=== PATIENT | female | born 1940 | race Caucasian/White ===

== ENCOUNTER 2024-09-07 11:51 | Inpatient (IN) | payer MEDICARE, SELFPAY ==
[2024-09-07] VITALS (23 sets, daily range): BP systolic 115–169; BP diastolic 62–111; BMI 27.5
[2024-09-07 09:38] LABS: Hematocrit 37.4 % (37.0-47.0); Hemoglobin 11.6 g/dL (12.0-16.0); Mean Corpuscular Hgb 30.1 pg (27.0-31.0); Mean Corpuscular Volume 97.1 fL (81.0-99.0); Mean Platelet Volume 10.1 fL (7.4-10.4); Platelet Count 357 10^3/uL (130-400); Red Blood Cell Count 3.85 10^6/uL (4.20-5.40); Red Cell Dist. Width 19.1 % (11.5-14.5); White Blood Cell Count 7.9 10^3/uL (4.8-10.8)
[2024-09-07 09:51] LABS: INR 1.03
[2024-09-07 09:52] LABS: APTT 38.2 Sec (23.4-35.0)
[2024-09-07 09:53] LABS: Blood Urea Nitrogen 31 mg/dl (7-17); Calcium 9.6 mg/dl (8.4-10.2); Carbon Dioxide 21 mmol/L (22-30); Chloride 114 mmol/L (98-107); Glucose 111 mg/dl (70-99); Potassium 4.5 mmol/L (3.5-5.1); Sodium 144 mmol/L (135-145); eGFR 41.06
--- NOTE | 2024-09-07 10:03 | W.SUR.PREOP ---
Pre-Operative Surgical Note
-
I have examined this patient prior to the performance of the scheduled procedure.
The patient's condition is unchanged from the time of the current History and
Physical and the patient is able to undergo the scheduled procedure.
--- NOTE | 2024-09-07 11:56 | OR.RPT ---
Operative Report
Operative Report
PROCEDURE DATE: 09/07/2024
Preoperative diagnosis: Chronic limb threatening ischemia left lower extremity with gangrene left fifth toe and first toe, severe ischemic rest pain, dependent rubor.
Postoperative diagnosis: Same
Procedure:
1. Duplex assisted right common femoral artery cannulation.
2. Aortogram and pelvic angiogram.
3. Left lower extremity arteriogram with several vessel catheterization of left superficial femoral artery via right common femoral artery puncture.
4. Right femoral angiogram.
5. Supervision and interpretation.
Surgeon: Twin
Industrial Sales Engineer: None
Complications: None
Anesthesia: Local, sedation
Fluoroscopy:
6.7 min
47 mGy
10.05 gy.cm2
Indications for procedure:
Chronic limb threatening ischemia with left fifth toe complete dry gangrene, first toe with partial dry gangrene, ischemic rest pain and dependent rubor. Risk/benefits/alternatives of angiography were fully discussed. Patient understood all wished
to proceed.
Description of procedure:
Patient was identified, brought to the operating room. Placed on the table in the supine position. After the adequate administration of anesthesia, the patient was prepped and draped in the standard surgical fashion. A standard preoperative
timeout was undertaken and everybody was in agreement with the plan.
The right common femoral artery was accessed with a micropuncture kit under direct duplex ultrasound guidance. Note this proved to be slightly challenging as it appeared that the profunda origin was slightly high, and in addition there was another
large branch that emanated from the proximal SFA just inferior to this point. Careful ultrasound and fluoroscopy assisted guidance was undertaken for access. Angiogram through the micropuncture sheath was performed as well before advancing a
larger sheath confirming good access over the femoral head. A 5 Sudanese sheath was then advanced over a 0.035 inch wire, and a osborn's hook catheter was advanced into the abdominal aorta. Aortogram and pelvic angiogram was obtained. Findings as
follows:
Infrarenal aorta: Patent with severe eccentric calcified plaque, significant tortuosity, but no significant stenosis. Bilateral common and external iliac arteries were somewhat tortuous and had significant eccentric plaque, but no significant
stenosis noted.
Using a floppy angled hydrophilic wire, the left common femoral artery was cannulated and the catheter was advanced. Left lower extremity arteriogram was obtained. Findings as follows:
Common femoral artery: Patent with no significant stenosis.
Profunda femoris artery: Patent with no significant stenosis
Superficial femoral artery: Patent with luminal irregularities but no significant stenosis.
Popliteal artery: Patent with severe string-like stenosis focally in the proximal above-knee popliteal artery just at the transition from the distal superficial femoral artery. The remainder of the popliteal artery behind the knee was slightly
challenging to visualize due to the orthopedic prosthesis, but was able to flex the knee and rotate the gantry so as to image. There was luminal irregularities and some disease through the behind the popliteal artery but no severe stenosis, perhaps
a mild to moderate stenosis of the.
Anterior tibial artery: Patent at the origin and for about a centimeter or 2 and then completely occluded with no reconstitution noted even at the level of the foot on delayed imaging.
Tibial peroneal trunk: Patent for just the origin and then completely occluded.
Peroneal artery: Completely occluded with reconstitution just proximal to the terminal bifurcation at the level of the lateral malleolus. And at that level moderately diseased based on relatively small flow lumen.
Posterior tibial artery: Chronically occluded. No reconstitution noted. However the plantar branches appear to reconstitute on the foot. Somewhat diseased and small in nature (the plantar arteries).
At this point I felt that there is no reasonable revascularization option. If needed the proximal popliteal artery stenosis could be stented, to enhance inflow to originate a bypass from a more distal origin. However given uncertainty as to
whether a bypass would even be feasible, I elected not to perform that at this time. I felt there is nothing else endovascularly to render at this point. Wires and catheters were withdrawn. Right femoral angiogram demonstrated good puncture in
the right common femoral artery over the femoral head, but again as noted slightly high bifurcation and puncture. The sheath was withdrawn and manual pressure was applied to the puncture site carefully. Prolonged pressure was applied. Hemostasis
was achieved. No evidence of hemodynamic instability during pressure application to suggest any retroperitoneal bleed or otherwise. Patient was transferred to the recovery room in stable condition.
[2024-09-07] MEDS: SUBLIMAZE 25 MCG IV (11:59)
--- NOTE | 2024-09-07 11:59 | W.SUR.POST ---
Surgical Immediate Post Op
Note
Pre Op Diagnosis: Peripheral arterial disease, wound
Post Op Diagnosis: Peripheral chill disease, wound
Procedure Performed: Left lower extremity angiogram, diagnostic
Primary Surgeon: Casey Murcia M.D.
Secondary Surgeons: N/A
Anesthesia: MAC
Estimated Blood Loss: 2 mL
Fluids: See anesthesia flowsheet
Drains/Shunts: N/A
Specimens/Cultures: N/A
Doppler/Duplex/Angio (Y/N): Y
Complications: None
Operative Findings: Peripheral arterial disease is not amenable to endovascular intervention
[2024-09-07] MEDS: NSS 1000 IV (13:10)
[2024-09-07] MEDS: LIDOCAINE 4% PATCH 1 PATCH TOPICAL (13:36)
[2024-09-07] MEDS: NORCO 5/325 1 TABLET PO ×2 (13:37→20:09)
--- NOTE | 2024-09-07 14:00 | PTCARENOTE ---
Received pt from cath lab radiology technician post arteriogram. NSR with 1st degree AV block on the monitor, HR in the 80's. Denies chest pain or SOB, but c/o chronic back pain rating it as an 8/10. Lidocaine patch applied and PRN hydrocodone administered per
order--see MAR for further details.
--- NOTE | 2024-09-07 14:00 | PTCARENOTE ---
Received pt from collaborative physician post arteriogram. NSR with 1st degree AV block on the monitor, HR in the 80's. Denies chest pain or SOB, but c/o chronic back pain rating it as an 8/10. Lidocaine patch applied and PRN hydrocodone administered per
order--see MAR for further details. Right groin site C.D.I. No hematoma or bleeding noted at this time. pt informed on activity restrictions and bed rest as well as expected ambulation time. pt verbalizes understanding. Call ford within reach.
--- NOTE | 2024-09-07 15:07 | CM ---
CM following for DC planning needs.
Met w/ patient + mult. family members at bedside to complete initial assessment.
Pt. resides alone in a private, 1 level apartment. Apartment is accessible by either a ramp or 2 HARRY. Functionally, patient is indep. w/ ADLs, mobility with use of a RW.
Pt. has RX plan and uses [facility] for prescription needs.
Anticipated DC plan is for home without needs.
CM to follow.
--- NOTE | 2024-09-07 15:08 | W.PN.UPDATE ---
Update Note
Progress Note Update
I had a very extensive discussion with the patient and her son and daughter. Discussed findings on angiography. Discussed severe occlusive disease below the knee. Discussed really barely any discernible distal targets for any sort of intervention
(angioplasty or bypass). The only potential options would be a very distal diseased peroneal artery but it is at the level of the ankle and it looks quite disease. Alternatively the plantar/distal PT artery branches may be reasonable. Discussed
with them that could try to explore the plantar/distal PT and see if we can use that as a target. If so then can proceed with bypass assuming she has reasonable vein. If no reasonable vein, or alternatively on exploration the distal PT/plantar is
not a reasonable target, then the only option would be amputation. Discussed BKA versus AKA. Discussed generally would recommend BKA as I think hopefully she should have enough perfusion to heal that. However discussed differences in terms of
healing potential as well as ability to ambulate with prosthetic. Discussed another alternative of primary amputation and to avoid any sort of heroic bypass type endeavor. Discussed that unfortunately TADV/LimFlow is not a reasonable option based
on anatomy. Nor do I think necessarily that would help. They understand all. Continue workup with vein mapping and likely will plan discharge tomorrow and schedule electively for the following week surgery. The only thing patient will have to
decide is if elects to proceed and bypass/exploration of distal PT as an option, then if on exploration the artery is not reasonable should we proceed with an amputation right there and then. I did broach that subject with her as well as her family
and they will think about it.
[2024-09-07] MEDS: TYLENOL 650 MG PO (17:07)
--- NOTE | 2024-09-07 17:19 | PTCARENOTE ---
pt c/o headache rated 8/10 but is requesting Tylenol 650 mg po. med with Tylenol, awaiting relief.
[2024-09-07] MEDS: HEPARIN 5000 UNITS SC (20:09)
[2024-09-07] MEDS: ZYRTEC 10 MG PO (21:47)
[2024-09-07] MEDS: ELAVIL 10 MG PO (21:47)
[2024-09-08] MEDS: TYLENOL 650 MG PO (01:32)
--- NOTE | 2024-09-08 01:45 | PTCARENOTE ---
Assumed care at 1900, pt aao x3, SR/ST on the monitor with HR 90-100's at rest and 120-130's with ambulation, asymptomatic. C/o pain 9/10 from LLE, medicated with some relief. 5th L foot necrotic toe, intact. 1st toe L foot black scab/necrotic area.
Left foot with some edema and local erythema, tender to touch, Doppler pulses b/l. Call ford within reach.
[2024-09-08] MEDS: NORCO 5/325 1 TABLET PO (02:41)
[2024-09-08 02:44] VITALS: BP 125/100
[2024-09-08 03:41] LABS: Hematocrit 33.8 % (37.0-47.0); Hemoglobin 10.7 g/dL (12.0-16.0); Mean Corp Hgb Conc. 31.7 g/dL (33.0-37.0); Mean Corpuscular Hgb 30.3 pg (27.0-31.0); Mean Corpuscular Volume 95.8 fL (81.0-99.0); Mean Platelet Volume 10.8 fL (7.4-10.4); Platelet Count 315 10^3/uL (130-400); Red Blood Cell Count 3.53 10^6/uL (4.20-5.40); White Blood Cell Count 5.7 10^3/uL (4.8-10.8)
[2024-09-08 04:04] LABS: Blood Urea Nitrogen 32 mg/dl (7-17); Calcium 9.2 mg/dl (8.4-10.2); Carbon Dioxide 18 mmol/L (22-30); Chloride 115 mmol/L (98-107); Estimated Creatinine Clearance 31 ml/min; Glucose 139 mg/dl (70-99); Potassium 5.4 mmol/L (3.5-5.1); Sodium 140 mmol/L (135-145); eGFR 41.06
[2024-09-08 04:28] VITALS: BMI 27.2
[2024-09-08] MEDS: SYNTHROID 125 MCG PO (06:10)
[2024-09-08 06:14] LABS: Glucose - Point of Care 140 mg/dl (70-99)
[2024-09-08] MEDS: DEXTROSE 50% SYRINGE 25 GRAMS IV (06:14)
[2024-09-08] MEDS: NOVOLIN R 0.05 UNITS IV (06:19)
--- NOTE | 2024-09-08 06:40 | PTCARENOTE ---
K 5.4 with this morning labs, environmental coordinator DIRECTOR INSURANCE made aware. New orders to give 5 units of Novolin R insulin IV stat. Blood sugar 140 prior administration, dextrose given, then Insulin IV at 0619. Will continue to check blood sugar as per protocol and
potassium within 2 hr of insulin administration.
[2024-09-08 06:59] VITALS: BP 163/103
[2024-09-08 07:01] VITALS: BP 161/79
[2024-09-08 07:19] LABS: Glucose - Point of Care 180 mg/dl (70-99)
[2024-09-08] MEDS: NORVASC 5 MG PO (08:17)
[2024-09-08] MEDS: HEPARIN 5000 UNITS SC (08:17)
[2024-09-08] MEDS: VITAMIN B-12 1000 MCG PO (08:17)
--- NOTE | 2024-09-08 08:23 | W.PN.VS ---
Addendum entered and electronically signed by Casey Murcia MD 09/08/24 11:10:
Seen and examined with CHARLES Cohen. Agree with findings as noted below. Patient without any new complaints. Continued ischemic rest pain left foot. Right groin puncture site flat. No hematoma. Abdomen is soft, nondistended, nontender. Left foot
stable with dependent rubor and gangrene 1st and 5th toes. Plan/as discussed and noted below. An extensive discussion with her. Discussed plan for surgery next week for exploration of left distal PT/plantar artery. Discussed that if reasonable,
her vein is marginal/reasonable and hopefully could pursue bypass with stenting of the SFA to shorten the length of a bypass needed. Alternatively would require BKA. Discussed both of those scenarios. She understands all. Plan surgery next week.
Discharge home today.
Original Note:
Today's Communication / Plan
-
Seen and assessed with Dr. Murcia
Assessment/Plan
-
Postop day 1 diagnostic arteriogram
Plan:
- Discharge home, planning for surgery Tuesday 10/[address] Murcia
Subjective Data
-
Date of Service: September 08, 2024
Patient seen at bedside this a.m. with Dr. Murcia. Patient offers no complaints at this time. No events overnight. Patient looking forward to discharge as soon as possible
Objective Data
-
Vital Signs
Temp Pulse Resp BP Pulse Ox
98.2 F 101 18 161/79 94
09/08/24 06:59 09/08/24 07:45 09/08/24 06:59 09/08/24 07:01 09/08/24 06:59
Intake and Output
09/07/24 09/08/24 09/09/24
06:59 06:59 06:59
Intake Total 1540 / 1540
Balance 1540 / 1540
Intake:
Oral fluids 960 / 960
IV fluids (Total) 580 / 580
NSS 580 / 580
Other:
Number of approximated MODERATE 2
amounts of urine
Number of approximated LARGE 1
amounts of urine
Lab Results
09/08/24 02:57
Calcium 9.2 mg/dl (8.4-10.2) 09/08/24 02:57
Physical Exam
-
AAO x 3
No tachypnea on room air
No tachycardia
Abdomen soft
Groin site clean, dry, intact, soft, flat
[2024-09-08 08:33] LABS: Glucose - Point of Care 140 mg/dl (70-99)
[2024-09-08 09:01] LABS: Potassium 5.2 mmol/L (3.5-5.1)
--- NOTE | 2024-09-08 09:03 | W.DS.TRANS ---
DC Summary - Forest Worker
-
Discharge Instructions:
Discharge Diagnosis/Procedures Diagnostic arteriogram
Diet As tolerated
Activity No strenuous activity
Driving Restrictions As prior to admission
Bathing Restrictions OK to Shower
Instructions:
Stand-Alone Forms: Vascular Surg Discharge Instr
Changes to Home Medications: No
Discharge Medications:
DC Medications w/original date entered in [facility]
Prevagen 1 tab PO DAILY 08/31/24
amitriptyline 10 mg tablet 10 mg PO HS 08/31/24
amlodipine 5 mg tablet 5 mg PO DAILY 08/31/24
cyanocobalamin (vitamin B-12) 1,000 mcg tablet (Vitamin B-12) 1,000 mcg PO DAILY 08/31/24
hydrocodone 5 mg-acetaminophen 325 mg tablet 1 tab PO Q6H PRN pain 08/31/24
levocetirizine 5 mg tablet (Xyzal) 5 mg PO HS 08/31/24
levothyroxine 125 mcg tablet 125 mcg PO DAILY 08/31/24
lidocaine 1.8 % topical patch 1 patch topical DAILY PRN Pain 08/31/24
lidocaine 5 % topical patch 1 patch topical DAILY PRN Pain 08/31/24
Home Medication Changes
Pending Results: No
--- NOTE | 2024-09-08 09:40 | CM ---
CM following for DC planning needs.
Met w/ patient at bedside. Plan is for DC to home today. There are no needs identified.
Plan-home, no needs.
[2024-09-08 10:01] LABS: Glucose - Point of Care 148 mg/dl (70-99)
[2024-09-08 10:59] VITALS: BP 155/93
--- NOTE | 2024-09-08 11:10 | PTCARENOTE ---
IV and tele removed. Discharge instructions reviewed w/ pt and verbalizes understanding. Belongings collected and sent home w/ pt. D/c to home w/ daughter.
== END 2024-09-08 11:11 | disposition home or self-care (01) | DRG 301 ==
LOC: IVU 11:51
PROVIDERS: Nurse Practitioner; Nurse Practitioner Family; ADMITTING PHYSICIAN Surgery Vascular Surgery; PRIMARYCARE PHYSICIAN Family Medicine
PROC: B41D1ZZ Fluoroscopy of Aorta and Bilateral Lower Extremity Arteries using Low Osmolar Contrast (ICD-10-PCS; 2024-09-07)
PROC: 04JY3ZZ Inspection of Lower Artery, Percutaneous Approach (ICD-10-PCS; 2024-09-07)
PROC: B41C1ZZ Fluoroscopy of Pelvic Arteries using Low Osmolar Contrast (ICD-10-PCS; 2024-09-07)
DX: I70.262 Atherosclerosis of native arteries of extremities with gangrene, left leg (principal); L97.529 Non-pressure chronic ulcer of other part of left foot with unspecified severity; I10 Essential (primary) hypertension; E03.9 Hypothyroidism, unspecified; M06.9 Rheumatoid arthritis, unspecified; Z60.2 Problems related to living alone; Z88.8 Allergy status to other drugs, medicaments and biological substances; Z88.1 Allergy status to other antibiotic agents; Z88.2 Allergy status to sulfonamides; Z79.890 Hormone replacement therapy; Z83.3 Family history of diabetes mellitus; Z87.891 Personal history of nicotine dependence
CPT/HCPCS: 36247; 75625; 75716; 80048; 82962; 84132; 85027; 85610; 85730; 86850; 86900; 86901; 87070; 93005; 93970; C1769; C1894; Q9967

== ENCOUNTER 2024-09-13 11:21 | Inpatient (IN) | payer MEDICARE, SELFPAY ==
[2024-09-13] VITALS (10 sets, daily range): BP systolic 107–146; BP diastolic 65–81; BMI 27.2
[2024-09-13 12:26] LABS: Blood Urea Nitrogen 42 mg/dl (7-17); Carbon Dioxide 17 mmol/L (22-30); Chloride 112 mmol/L (98-107); Estimated Creatinine Clearance 29 ml/min; Glucose 105 mg/dl (70-99); Potassium 4.5 mmol/L (3.5-5.1); Sodium 140 mmol/L (135-145); eGFR 37.56
[2024-09-13] MEDS: BACTROBAN NASAL 1 GRAM NASAL (12:26)
[2024-09-13] MEDS: NSS 500 IV (13:11)
--- NOTE | 2024-09-13 13:13 | W.PN.UPDATE ---
Update Note
Progress Note Update
Discussed again with her the plan. Discussed will explore distal left posterior tibial/plantar artery. If feasible we will plan bypass. If however not she understands and is willing to proceed with left below the knee amputation.
--- NOTE | 2024-09-13 18:07 | W.SUR.POST ---
Surgical Immediate Post Op
Note
Pre Op Diagnosis: PAD
Post Op Diagnosis: PAD
Procedure Performed: LLE below knee popiteal artery to PT artery bypass with saphenous vein, on table angiogram with SFA/popliteal artery balloon angioplasty and stent placement
Primary Surgeon: Twin
Check Cashier: Noel ROWLAND
Anesthesia: General
Estimated Blood Loss: 50 cc
Fluids: See anesthesia flowsheet
Drains/Shunts: None
Specimens/Cultures: None
Doppler/Duplex/Angio (Y/N): Y
Complications: None
Operative Findings: Palpable graft pulse, Doppler signal marked on the foot
--- NOTE | 2024-09-13 18:41 | OR.RPT ---
Operative Report
Operative Report
PROCEDURE DATE: 09/13/2024
Preoperative diagnosis: Chronic limb threatening ischemia left lower extremity with gangrene left 5th and 1st toe. Severe ischemic rest pain.
Postoperative diagnosis: Same
Procedure:
1. Left below the knee popliteal artery to plantar artery bypass with ipsilateral nonreversed greater saphenous vein.
2. Right common femoral artery duplex assisted cannulation.
3. Aortogram pelvic angiogram and left lower extremity arteriogram.
4. Balloon angioplasty and stent placement left distal SFA to above-knee popliteal artery with Zilver PTX 6 mm x 12 cm stent.
Surgeon: Twin
Insurance Account Manager: CHARLES Cohen, required for all aspects of procedure including assistance with traction/countertraction, following a suture line, assistance with closure.
Complications: None
Anesthesia: General
Indications for procedure:
Chronic limb threatening ischemia. Limited revascularization options. Appeared to have a plantar artery on the foot that I discussed may be worth exploring, though clearly there were no guarantees that this would be sufficient for
revascularization. Did discuss the other alternative of primary below the knee amputation. Discussed the risk of below the knee amputation despite all efforts as well. She understood all wished to proceed.
Description of procedure:
Patient was identified brought to the operating room placed on the table in supine position. After the adequate administration of anesthesia she was prepped and draped in the standard surgical fashion. A standard preoperative timeout was
undertaken and everybody was in agreement the plan. I made a longitudinal/oblique incision in the distal medial ankle into the foot just posterior to the medial malleolus distal extent, and onto the pad of the foot. This was carried through skin
subcutaneous tissue with the electrocautery. The retinaculum was divided sharply with the Metzenbaum scissor. The distal posterior tibial artery was identified after identifying the vein. Careful dissection was taken to isolate the artery and
continue to dissected until the branching to the plantar branches. Slightly difficult to say which was which, but likely the lateral branch coursed off the lateral wall of the artery, and the medial branch presumably stayed somewhat medial there.
These were carefully circumferentially dissected and isolated with Vesseloops. The arteries themselves were somewhat soft but noncalcified plaque could be palpated. A Doppler signal was audible. Therefore I felt it was worth an attempt at bypass.
At this point I made a longitudinal incision in the medial proximal calf about a fingerbreadth inferior to the tibia. The greater saphenous vein was exposed here. It became very small here. Therefore based on the fact that it became very small
here, and I would not have enough length, I felt that inflow from the below-knee popliteal artery would be the only viable option. However that would imply the need for stenting of the above-knee popliteal and distal SFA. I discussed this
potential with the patient. Now I wish to proceed in that fashion. Therefore I now dissected through the crural fascia layer with the electrocautery. I reflected the gastrocnemius muscle posteriorly and in the soft loose areolar tissue identified
the posterior tibial vein and artery. The artery was carefully dissected away from surrounding structures and great care to avoid any injury to the structures and Vesseloops passed around approximately distally. It was soft with weak pulsatility.
Now that I had proximal and distal arterial exposure, I continued to make incisions in the medial aspect of the thigh. To skip incisions and through the proximal medial calf incision I exposed the greater saphenous vein through those 3 incisions.
The vein was fully mobilized, ligating any branches between silk ties and clips. And then dividing them. Once I mobilized a suitable segment I ligated the vein distally with a heavy silk tie and a clip where it became very small. I then
transected that there. Proximally I ligated with a silk suture ligature and a clip. I then transected it there. I then distended the vein under heparinized saline. It distended very well. I now used a Carmella tunneler to create a subcutaneous
tunnel between the 2 arterial exposure sites. I now gave the patient an appropriate dose of heparin 6000 units. Once this had circulated I tightened my double looped vessel loop distally on the popliteal artery and clamped the artery proximally.
An arteriotomy was made with an 11 blade and extended using Hanley scissor. There was atherosclerotic plaque in the wall, but the lumen was reasonably patent. I now spatulated the vein maintaining it in a nonreversed fashion and sewed an
end-to-side anastomosis to the popliteal artery using a running 6-0 Prolene suture. I completed and tied down my suture line. I then released my clamps on the popliteal artery. A single bleeding site on the suture line was repaired with a
[id number] 6-0 Prolene suture. There was good flow into the vein graft. I now used a Marcano valvulotome to fully valvulotomize the bypass graft. Once I was satisfied the anterior surface was then marked under distention to avoid any kinking
or twisting and then it was passed through the tunnel. I now placed a bulldog clamp on the vein graft. I now placed Yasargil clips on the distal posterior tibial artery and the plantar branches. An arteriotomy was made with a Charles Mix blade. It
was a diseased artery, it was certainly not normal and it was very small. I debated whether it was worth trying to sew to this, but this was the only option and there had been flow in it. When I released my as ago clips distally there was
backbleeding. Therefore I felt it was worth proceeding. I therefore then trimmed and spatulated the distal aspect of the vein graft and sewed an end-to-side anastomosis to the distal posterior tibial artery holding onto one of the plantar branches
using a running 7-0 Prolene suture. Prior to completing and tying down my suture line I backbled the apache artery and flushed out the vein graft. I then instilled heparinized saline and completed and tied down the suture line. Next I released
the as ago clips on the artery and released the bulldog clamp on the vein graft. There was now reasonable pulsatile flow in the vein graft. There is a reasonable Doppler signal in the plantar branches distally. The pulse was slightly weaker
though given the inflow disease. But I was satisfied with the outcome here so far.
Therefore I then now turned my attention to the right groin. I then punctured the right common femoral artery under direct duplex ultrasound guidance with a micropuncture kit and then advanced a 5 Russian sheath over 0.035 inch wire. Care was taken
to puncture carefully as the patient had a high bifurcation as noted on prior imaging as well. Lovelace's hook catheter was advanced into the aorta and aortogram/pelvic angiogram confirmed aortic and iliac anatomy as noted on recent prior
angiography. I then used a flopping of hydrophilic wire and with some difficulty was finally able to cannulate the common femoral and then profunda femoris artery. I then exchanged for a 5 Russian glide catheter which was advanced to the common
femoral artery. Angiogram identified the superficial femoral artery which I then was able to cannulate with a flopping of hydrophilic wire and then advanced my glide catheter. Further lower extremity angiogram demonstrated patent below the knee
popliteal artery and widely patent proximal anastomosis of the bypass graft. I then exchanged for a Storq wire and up and over 6 Russian sheath. Now under roadmap assisted guidance I traversed the severe stenosis in the distal SFA/popliteal artery
as well as additional milder stenosis just beyond using a flopping of hydrophilic wire and a CXI catheter. Once I gained wire access into the bypass graft, I then exchanged for a Storq wire. Next I pre-angioplastied the stenotic area using a 4 mm
x 14 mm angioplasty balloon. Next, I advanced a Mzinga Zilver PTX 6 mm x 12 cm stent in the distal SFA into the above-knee popliteal artery. This was deployed and then post angioplastied with a 5 mm angioplasty balloon. Completion angiogram
demonstrated an excellent result with brisk flow and no residual stenosis. Good flow into the runoff. Namely into the bypass graft which filled briskly now. The proximal anastomosis is noted was widely patent. The entire bypass graft was patent.
Distal anastomosis with patent, and the 1 good plantar branch filled reasonably well and gave markedly increased small tiny collateralization into the foot and toes. Still a very diseased artery and diseased outflow. However nothing further I
could offer here. To palpation now the pulsation in the graft was much stronger. In addition the Doppler signal in the plantar branches was much stronger. At this point I was satisfied. I felt that there is nothing else here I could render. We
therefore then achieved and confirmed full hemostasis throughout all her incision sites. Protamine was given to reverse the heparin. Saphenectomy sites were closed using 2-0 Vicryl followed by 3-0 Vicryl and then skin clips. Proximal arterial
exposure site was closed with 2-0 Vicryl interrupted suture followed by 3-0 Vicryl and skin clips. The distal foot arterial exposure site was closed with interrupted vertical mattress nylon suture. Dressings were applied. The patient tolerated
procedure well. All sponge, needle, instrument counts were correct at the end of the case. The patient was transported to the recovery room in stable condition.
[2024-09-13 18:43] LABS: Hematocrit 33.3 % (37.0-47.0); Hemoglobin 10.6 g/dL (12.0-16.0); Mean Corp Hgb Conc. 31.8 g/dL (33.0-37.0); Mean Corpuscular Hgb 31.2 pg (27.0-31.0); Mean Corpuscular Volume 97.9 fL (81.0-99.0); Platelet Count 258 10^3/uL (130-400); Red Cell Dist. Width 18.8 % (11.5-14.5); White Blood Cell Count 13.7 10^3/uL (4.8-10.8)
[2024-09-13] MEDS: DILAUDID 0.25 MG IV (18:51)
[2024-09-13 18:57] LABS: APTT 34.6 Sec (23.4-35.0); INR 1.16; PT 15.4 Sec (11.4-14.6)
[2024-09-13 19:03] LABS: Blood Urea Nitrogen 38 mg/dl (7-17); Calcium 8.4 mg/dl (8.4-10.2); Carbon Dioxide 19 mmol/L (22-30); Chloride 116 mmol/L (98-107); Estimated Creatinine Clearance 31 ml/min; Glucose 155 mg/dl (70-99); Potassium 4.8 mmol/L (3.5-5.1); Sodium 141 mmol/L (135-145); eGFR 41.06
[2024-09-13] MEDS: HEPARIN 25000 UNITS/250 ML IV (19:09)
[2024-09-13] MEDS: PLAVIX 300 MG PO (19:11)
[2024-09-13] MEDS: NSS 1000 IV (19:29)
--- NOTE | 2024-09-13 20:00 | PTCARENOTE ---
Patient received from PACU, drowsy, offers no complaints.Lying flat. NSR with first degree, blood pressure as documented. trace edema to bilateral lower extremities. Lungs diminished, pulse ox 100% on 6L simple mask. Abdomen soft with hypoactive
bowel sounds. Temp sensing irving draining yellow urine. Right groin dite clean dry and intact. Left medial leg with small amount of old drainage on primaseal dressings. Left medial foot with 4x4 ans tegaderm clean dry and intact. Right DP and
left foot pulses present by doppler. #18 g in right upper arm with IVF, #20g in left hnad with Heparin gtt infusing as ordered. Right radial Evans transduced and zeroed. CHG bath given.
--- NOTE | 2024-09-13 21:43 | PTCARENOTE ---
HOB raised, transitioned from 6L simple mask to 2L nasal cannula.
[2024-09-13] MEDS: ELAVIL 10 MG PO (22:00)
[2024-09-13] MEDS: MYRBETRIQ EXTENDED RELEASE 50 MG PO (22:01)
[2024-09-13] MEDS: ZYRTEC 5 MG PO (22:01)
[2024-09-13] MEDS: DILAUDID 0.5 MG IV (22:01)
[2024-09-14] VITALS (24 sets, daily range): BP systolic 124–158; BP diastolic 60–115; BMI 27.6
--- NOTE | 2024-09-14 | PTCARENOTE ---
Patient reassessed, intermittently complaining of burning pain in left foot, medicated per JUN. Pulses unchanged, resting with eyes closed
[2024-09-14] MEDS: ROXICODONE 5 MG PO ×4 (01:35→20:34)
--- NOTE | 2024-09-14 04:04 | PTCARENOTE ---
Patient reassessed, no changes in assessment watching tv, labs sent
[2024-09-14 04:20] LABS: Hematocrit 31.5 % (37.0-47.0); Mean Corp Hgb Conc. 31.7 g/dL (33.0-37.0); Mean Corpuscular Volume 97.5 fL (81.0-99.0); Mean Platelet Volume 10.5 fL (7.4-10.4); Platelet Count 255 10^3/uL (130-400); Red Blood Cell Count 3.23 10^6/uL (4.20-5.40); Red Cell Dist. Width 18.7 % (11.5-14.5); White Blood Cell Count 8.9 10^3/uL (4.8-10.8)
[2024-09-14 04:38] LABS: APTT 39.7 Sec (23.4-35.0); INR 1.02; PT 13.9 Sec (11.4-14.6)
[2024-09-14 04:40] LABS: Blood Urea Nitrogen 36 mg/dl (7-17); Calcium 8.2 mg/dl (8.4-10.2); Carbon Dioxide 16 mmol/L (22-30); Chloride 117 mmol/L (98-107); Estimated Creatinine Clearance 34 ml/min; Glucose 166 mg/dl (70-99); Potassium 5.5 mmol/L (3.5-5.1); Sodium 140 mmol/L (135-145); eGFR 45.19
[2024-09-14] MEDS: NSS 1000 IV (06:01)
[2024-09-14] MEDS: SYNTHROID 125 MCG PO (06:01)
[2024-09-14] MEDS: SODIUM BICARBONATE 50 MEQ IV (06:32)
[2024-09-14] MEDS: NORVASC 5 MG PO (06:40)
--- NOTE | 2024-09-14 06:43 | PTCARENOTE ---
Labs noted, order received, AM norvasc given for increased blood pressure. patient ordering breakfast
--- NOTE | 2024-09-14 07:00 | CON.INTV ---
Addendum entered and electronically signed by Kevin Shearer MD 09/15/24 11:30:
09/15
- Patient transferring out of ICU
- Financial Compliance Manager service will sign off, please call as needed
Original Note:
Consultation
Consultation Request
Date/Time Consultation Requested: 09/13/2024
Date/Time Consultation Performed: 09/14/2024
Requesting Provider: Casey Murcia
Performing Provider: Kevin Shearer
Reason for Consultation: Ischemic foot
Medical History
-
Chief Complaint: Foot pain
History of Present Illness:
Patient is a very pleasant 84-year-old female with known history of ischemic foot ulcer on the left lower extremity related to ischemia. She had angiography performed about a month ago and was not felt to be a suitable candidate for endovascular
interventions. She was brought back to the OR on 09/13 with another attempt to consider endovascular revascularization/bypass surgery and if not feasible plan for left below the knee amputation. Patient subsequently had left below the knee
popliteal artery to plantar artery bypass along with balloon angioplasty and stent placement of left distal SFA to above-knee popliteal artery. Postprocedure patient was brought to the ICU started on heparin infusion as well as oral Plavix.
Financial Compliance Manager consultation was requested for further input.
Past medical history. Hypertension, peripheral vascular disease, ischemic foot ulcer, hypothyroidism, rheumatoid arthritis.
Surgical history. None
Family history. No family history of lung cancer reported. Strong history of diabetes in parents.
Social history. Prior history of smoking. Quit about 10 years ago. Patient reports that she probably smoked for 20 to 40 years about a pack per day and then switched to cigars about 15 years ago and then quit everything about 10 years ago.
Allergies / Home Medications
Allergies
Allergy/AdvReac Type Severity Reaction Status Date / Time
baclofen Allergy Unknown Verified 09/13/24 11:49
Benzodiazepines Allergy Unknown Verified 09/13/24 16:24
diazepam (From Valium) Allergy Unknown Verified 09/13/24 11:49
duloxetine Allergy Unknown Verified 09/13/24 11:49
gabapentin Allergy Unknown Verified 09/13/24 11:49
meloxicam Allergy Anaphylaxis Verified 09/13/24 16:24
methotrexate Allergy Unknown Verified 09/13/24 16:24
pregabalin (From Lyrica) Allergy Unknown Verified 09/13/24 11:49
sulfamethoxazole (From Allergy Rash Verified 09/13/24 11:49
Bactrim)
trimethoprim (From Bactrim) Allergy Rash Verified 09/13/24 11:49
Home Medications
�Medication �Instructions �Recorded �Confirmed �Last Taken �Type
Prevagen 1 tab PO DAILY 08/31/24 09/13/24 09/12/24 06:00 History
amitriptyline 10 mg tablet 10 mg PO HS 08/31/24 09/13/24 09/12/24 20:00 History
amlodipine 5 mg tablet 5 mg PO DAILY 08/31/24 09/13/24 09/12/24 08:00 History
cyanocobalamin (vitamin B-12) 1,000 mcg PO DAILY 08/31/24 09/13/24 09/12/24 08:00 History
1,000 mcg tablet (Vitamin B-12)
hydrocodone 5 mg-acetaminophen 325 1 tab PO Q6H PRN pain 08/31/24 09/13/24 09/13/24 06:00 History
mg tablet
levocetirizine 5 mg tablet (Xyzal) 5 mg PO HS 08/31/24 09/13/24 09/12/24 20:00 History
levothyroxine 125 mcg tablet 125 mcg PO DAILY 08/31/24 09/13/24 09/12/24 06:00 History
lidocaine 1.8 % topical patch 1 patch topical DAILY PRN Pain 08/31/24 09/13/24 09/06/24 20:00 History
acetaminophen 650 mg 1,300 mg PO Q12H 09/12/24 09/13/24 09/12/24 20:00 History
tablet,extended release
mirabegron 25 mg tablet,extended 50 mg PO HS 06/07/0409/13/24 09/12/24 20:00 History
release 24 hr (Myrbetriq)
temazepam 30 mg capsule 30 mg PO HS PRN insomnia 09/12/24 09/13/24 09/12/24 20:00 History
Review of Systems
-
Hematologic/Lymphatic: Other
Vitals / Labs / Diagnostic Testing
Vital Signs
Temp Pulse Resp BP Pulse Ox
98.2 F 84 10 139/68 98
09/14/24 04:00 09/14/24 06:00 09/14/24 06:00 09/14/24 06:00 09/14/24 05:45
Lab Data
09/14/24 03:53
09/14/24 03:53
Laboratory Results
09/13/24 09/14/24
18:38 03:53
PT 15.4 H 13.9
INR 1.16 1.02
APTT 34.6 39.7 H
Diagnostic Testing:
Physical Exam
-
HEENT: Normocephalic
Cardiovascular: S1/S2 and Peripheral Edema (No edema. Gangrenous left toe changes noted )
Respiratory: Clear
GI: Soft
Neurology: Awake
Skin: Warm
General: Comfortable
Assessment
-
84-year-old patient with history of severe ischemic rest pain with gangrenous left 5th and 1st toe, s/p:
1. Left below the knee popliteal artery to plantar artery bypass with ipsilateral nonreversed greater saphenous vein.
2. Right common femoral artery duplex assisted cannulation.
3. Aortogram pelvic angiogram and left lower extremity arteriogram.
4. Balloon angioplasty and stent placement left distal SFA to above-knee popliteal artery with Zilver PTX 6 mm x 12 cm stent.
POD #1.
Continue observation following procedure
Follow neurovascular checks per protocol
Currently on clopidogrel as well as heparin infusion
Follow BP monitoring and parameters as set by primary team
Monitor on telemetry
Pain control per protocol
RASS goal 0
No prior history of pulmonary disease, known h/o smoking
CXR reviewed indicating no acute disease
No prior PFTs for review
Encouraged IS
Diet advancement per protocol
Aspiration precautions
GI prophylaxis: on Protonix.
Creat at baseline, follow UO. K is high.
Critical I/Os
Void trials
Replete electrolytes as needed
No signs/symptoms suspicious for infectious etiology at this time
Will observe off antibiotics for now
Follow temperatures/CBC
Hb and platelets postoperatively stable
DVT prophylaxis: On heparin drip currently
Encouraged OOB/PT/OT/ambulation once cleared by surgical team
Other medical diagnoses:
- CKD with Hyperkalemia. Cr baseline 1.3. Potassium at 5.5 today. Chloride rising. Discontinue normal saline infusion, start sterile water with 3 A of sodium bicarbonate at 80 mL/h. Follow-up labs. Lokelma times 1
- Chronic metabolic acidosis, suspect related to CKD. Switch to sterile water with bicarb infusion, will eventually start the patient on oral supplement with sodium bicarbonate tablet twice a day.
- HTN. Currently on amlodipine
- Hypothyroidism. Continue thyroxine replacement
- PVD. Currently on Plavix along with heparin infusion
- Rheumatoid arthritis
- H/o Smoking . Patient denies any symptoms of COPD/Emphysema. We discussed about pulmonary function testing and patient does not want to pursue any further workup at present. She does not qualify for low-dose CT scan screening as her age is more
than 80.
Critical Care time 48 mins -- The patient is admitted for acute critical illness for the treatment of vital organ failure and/or prevention of further life-threatening conditions. Total care includes time spent in review of history, physical exam,
medications, hemodynamic/ventilator parameters, laboratory data, imaging and discussion with house staff, pharmacy, respiratory therapy, hide sorter, and nursing.
Data:
CXR 09/2024: Unremarkable
--- NOTE | 2024-09-14 07:27 | W.PN.VS ---
Today's Communication / Plan
-
Seen and assessed with Dr Murcia
Assessment/Plan
-
POD 1 Bypass and SFA/pop stent
Plan:
-DC cailin
-DC IVF
-DC irving
-OOB to chair today, progress to ambulation today
-Theraputic heparin today
-Podiatry consult for necrotic toes
-Keep ICU today
Subjective Data
-
Date of Service: September 14, 2024
Pt seen at bedside this am with Dr Murcia. Pt offers no complaints at this time. No events overnight. Admits to having less discomfort in the toes.
Objective Data
-
Vital Signs
Temp Pulse Resp BP Pulse Ox
98.2 F 84 10 139/68 98
09/14/24 04:00 09/14/24 06:00 09/14/24 06:00 09/14/24 06:00 09/14/24 05:45
Intake and Output
09/13/24 09/14/24 09/15/24
06:59 06:59 06:59
Intake Total 985 / 985
Output Total 1220 / 1220
Balance -235 / -235
Intake:
IV fluids (Total) 985 / 985
Heparin 55 / 55
Nss 1,000 ml @ 80 mls/hr IV . 880 / 880
[id number] RONA Rx#:[id number]
normosol 50 / 50
Output:
Urine, Irving 1220 / 1220
Lab Results
09/14/24 03:53
09/14/24 03:53
Calcium 8.2 mg/dl (8.4-10.2) L 09/14/24 03:53
Physical Exam
-
AAOx3
No tachypnea on 2L NC
No tachycardia
Abd soft
LLE aquacel dressings c/d/i, compartments soft
Palpable graft pulse
foot dressing s/d/i, +doppler signal at marked area
Foot warm and pink
--- NOTE | 2024-09-14 07:30 | PTCARENOTE ---
Received A&Ox4, on 2LNC, NSR w/1st AVB, Right radial [place], Doppler DP and PT pulses, trace edema in B/L LE, Left medial Primaseal dressing intact w/ old drainage, Left inner ankle gauze with Tegaderm intact w/ old drainage, Nuñez intact.
[2024-09-14] MEDS: NSS (PRESERVATIVE FREE) 10 ML IV (08:09)
[2024-09-14] MEDS: PROTONIX IV 40 MG IV (08:09)
[2024-09-14] MEDS: VITAMIN B-12 1000 MCG PO (08:09)
[2024-09-14] MEDS: PLAVIX 75 MG PO (08:09)
[2024-09-14] MEDS: LIDOCAINE 4% PATCH TOPICAL (08:14)
[2024-09-14] MEDS: HEPARIN 25000 UNITS/250 ML IV ×2 (08:48→21:59)
[2024-09-14] MEDS: DILAUDID 0.5 MG IV (10:21)
[2024-09-14] MEDS: LOKELMA 10 GRAM PO (10:53)
[2024-09-14] MEDS: SODIUM BICARBONATE 1150 MEQ IV (11:19)
--- NOTE | 2024-09-14 12:00 | PTCARENOTE ---
Reassessed the patient, discontinued Bishop and irving, leg pain was intervened, tolerated OOB to chair, on RA, new small drainage seen in Left medial leg and left lateral ankle dressings w/ activity.
--- NOTE | 2024-09-14 15:26 | CON.MD ---
Consultation - Medical
-
Consulted for pleasant 84 year old female with chronic PAD and limb threatening ischemia LLE. She is one day status post left BK popliteal artery to plantar artery bypass and balloon angioplasty and stent placement left distal SFA to above knee
popliteal artery.
PMH includes PAD with chronic ischemic LLE wounds, RA and HTN. On examination, expected dorsal foot edema noted but foot warm to touch with good color and capillary return to distal aspect of digits 1-4. Dorsal hallux with 1.5 cm circular wound
necrotic but dry with stable edges, no drainage and no surrounding erythema. 5th toe entirely necrotic to the MTPJ but well demarcated with no drainage or erythema at wound edges. No cellulitis present. Slight pain on gentle manipulation of the
digit but patient states much less severe since surgery.
Impression/Plan
-Chronic limb threatening ischemia left LE one day status post LLE bypass and balloon angioplasty
Patient states much less pain today in the foot and is currently sitting comfortably in chair
-Dry gangrene left 5th toe
Discussed with patient that despite increase in perfusion from surgery the 5th toe is no longer viable and amputation is advised. If performed now without the presence of infection we can primarily close the incision site, providing the best
change of healing. Patient understands and agrees to the procedure to be scheduled tomorrow. If it does not heal, she understands that below knee amputation may be necessary. Patient will inform her daughter of the upcoming procedure and
will have her call me with any questions.
-Necrotic wound left hallux
no surgical intervention warranted as the area is stable and soft tissue distal to the wound appears viable.
Consultation
-
Reason for Consultation: ischemic left 5th toe
--- NOTE | 2024-09-14 16:00 | PTCARENOTE ---
Reassessed the patient, no changes from previous assessments.
Per Dr. Murcia, if left medial leg dressings are saturated, okay to change dressings with Primaseal or 4x4 gauze and wrap with Kerlix. If left inner ankle dressing is saturated, change it with xeroform first, then 4x4 gauze, cover with Tegaderm.
--- NOTE | 2024-09-14 16:08 | CM ---
Initial assessment completed. One day status post LLE bypass and balloon angioplasty.
Patient resides alone in a 1st floor apartment, 2 steps, ramp access. Independent w/ ADLs, ambulates w/ RW previously. No SNF/HC hx reported.
PCP: Wesley Thapa
Pharmacy: [facility]
Plan: Home
[2024-09-14 17:41] LABS: Blood Urea Nitrogen 41 mg/dl (7-17); Calcium 8.3 mg/dl (8.4-10.2); Carbon Dioxide 21 mmol/L (22-30); Chloride 110 mmol/L (98-107); Estimated Creatinine Clearance 34 ml/min; Glucose 131 mg/dl (70-99); Potassium 4.6 mmol/L (3.5-5.1); Sodium 138 mmol/L (135-145); eGFR 45.19
--- NOTE | 2024-09-14 20:00 | PTCARENOTE ---
Patient received in bed, AAOx3. NSR with first degree, blood pressure as documented. trace edema noted to bilateral lower extremities, right DP and left foot present by doppler. Lungs clear, pulse ox 97% on room air. Abdomen soft with positive
bowel sounds. Voiding clear yellow urine. Left leg dressings saturated. Right upper arm midline with heparin gtt infusing as documented.
[2024-09-14] MEDS: ELAVIL 10 MG PO (21:58)
[2024-09-14] MEDS: MYRBETRIQ EXTENDED RELEASE 50 MG PO (21:58)
[2024-09-14] MEDS: SODIUM BICARBONATE 650 MG PO (21:58)
[2024-09-14] MEDS: ZYRTEC 5 MG PO (21:58)
[2024-09-15] VITALS (23 sets, daily range): BP systolic 100–150; BP diastolic 50–79; BMI 27.5
--- NOTE | 2024-09-15 00:33 | PTCARENOTE ---
Patient resting with eyes closed, appears comfortable, pulses unchanged. leg dressing with large amount of blood, pulses present by doppler Labs sent
[2024-09-15 00:58] LABS: APTT 150.5 Sec (23.4-35.0)
--- NOTE | 2024-09-15 01:10 | PTCARENOTE ---
Ptt noted, heparin gtt placed on hold per protocol
--- NOTE | 2024-09-15 03:55 | PTCARENOTE ---
Patient OOB x1 to BSC, offers no compaints. Primaseal leg dressing remains saturated, small opening on dressing reinforced with silk tape. Pulses unchanged. Labs sent
[2024-09-15 04:20] LABS: Hematocrit 30.5 % (37.0-47.0); Hemoglobin 9.9 g/dL (12.0-16.0); Mean Corp Hgb Conc. 32.5 g/dL (33.0-37.0); Mean Corpuscular Hgb 31.2 pg (27.0-31.0); Mean Corpuscular Volume 96.2 fL (81.0-99.0); Mean Platelet Volume 9.9 fL (7.4-10.4); Platelet Count 235 10^3/uL (130-400); Red Blood Cell Count 3.17 10^6/uL (4.20-5.40); White Blood Cell Count 11.2 10^3/uL (4.8-10.8)
[2024-09-15 04:48] LABS: AST (SGOT) 16 U/L (14-36); Albumin 3.5 g/dl (3.5-5.0); Alkaline Phosphatase 62 U/L (38-126); Blood Urea Nitrogen 46 mg/dl (7-17); Calcium 8.3 mg/dl (8.4-10.2); Carbon Dioxide 24 mmol/L (22-30); Chloride 112 mmol/L (98-107); Estimated Creatinine Clearance 34 ml/min; Glucose 110 mg/dl (70-99); Potassium 4.7 mmol/L (3.5-5.1); Sodium 141 mmol/L (135-145); Total Bilirubin 0.4 mg/dl (0.2-1.3); Total Protein 5.7 g/dl (6.3-8.2); eGFR 45.19
[2024-09-15 04:59] LABS: ALT (SGPT) 11 U/L (0-35)
[2024-09-15] MEDS: SYNTHROID 125 MCG PO (06:05)
[2024-09-15] MEDS: PLAVIX PO (08:00)
[2024-09-15] MEDS: LIDOCAINE 4% PATCH TOPICAL (08:00)
--- NOTE | 2024-09-15 08:00 | PTCARENOTE ---
07:30, Received patient A&Ox4, on RA, NSR w/ 1stAVB, SBP within goal range, ANAI midline infusing Heparin @900unit/hr, NPO since midnight, continent w/ bedside commode, adequate UOP.
08:00, vascular team at bedside ordered to stop Heparin drip, order carried out.
[2024-09-15] MEDS: DILAUDID 0.5 MG IV ×2 (08:13→17:08)
[2024-09-15] MEDS: NSS (PRESERVATIVE FREE) 10 ML IV (08:18)
[2024-09-15] MEDS: NORVASC 5 MG PO (08:19)
[2024-09-15] MEDS: PROTONIX IV 40 MG IV (08:19)
[2024-09-15] MEDS: SODIUM BICARBONATE 650 MG PO ×2 (08:20→21:20)
[2024-09-15] MEDS: VITAMIN B-12 1000 MCG PO (08:31)
--- NOTE | 2024-09-15 08:38 | W.PN.VS ---
Addendum entered and electronically signed by Casey Murcia MD 09/15/24 08:53:
Seen and examined with CHARLES Medina. Agree with findings as noted below. Patient without complaints. Left lower extremity dressings were slightly saturated today. Removed all. No active bleeding. Thigh and calf are soft. Incisions all clean dry
and intact once dressing is removed. All blood wiped away. Distal foot incision is clean dry and intact. Easily palpable graft pulse. Excellent dopplerable plantar signal. Plan/as discussed and noted below.
Original Note:
Today's Communication / Plan
-
Patient seen and evaluated bedside with Casey Murcia M.D., below plan reviewed with attending.
Assessment/Plan
-
POD 2 Bypass and SFA/pop stent
Plan:
-Plan for amputation today with podiatry
-Patient with supratherapeutic heparin overnight suspect what led to increased oozing at left lower extremity bypass surgical site we will hold infusion now and dressings changed
-PT/OT
Subjective Data
-
Date of Service: September 15, 2024
Patient seen and examined at bedside, offers no complaints. Reports continued near resolution to rest pain and foot. Reports well-managed postoperative pain.
Objective Data
-
Vital Signs
Temp Pulse Resp BP Pulse Ox
98.2 F 77 16 139/52 98
09/15/24 07:20 09/15/24 08:19 09/15/24 06:00 09/15/24 08:19 09/15/24 06:00
Intake and Output
09/14/24 09/15/24 09/16/24
06:59 06:59 06:59
Intake Total 985 / 1070 1586.5 / 1586.5
Output Total 1220 / 1370 1085 / 1085
Balance -235 / -300 501.5 / 501.5
Intake:
Oral fluids 480 / 480
IV fluids (Total) 985 / 1070 1106.5 / 1106.5
Heparin 55 / 60 226.5 / 226.5
Nss 1,000 ml @ 80 mls/hr IV . 880 / 960 80 / 80
[id number] RONA Rx#:[id number]
Sterile Water For Injection 800 / 800
1000 ml 1,000 ml @ 100 mls/hr
IV .[id number] RONA with Sodium
Bicarbonate 150 Meq Rx#:
[id number]
normosol 50 / 50
Output:
Urine, Nuñez 1220 / 1370 285 / 285
Urine, Voided 800 / 800
Lab Results
09/15/24 03:48
09/15/24 03:48
Calcium 8.3 mg/dl (8.4-10.2) L 09/15/24 03:48
Total Bilirubin 0.4 mg/dl (0.2-1.3) 09/15/24 03:48
AST 16 U/L (14-36) 09/15/24 03:48
ALT 11 U/L (0-35) 09/15/24 03:48
Alkaline Phosphatase 62 U/L (38-126) 09/15/24 03:48
Total Protein 5.7 g/dl (6.3-8.2) L 09/15/24 03:48
Albumin 3.5 g/dl (3.5-5.0) 09/15/24 03:48
Physical Exam
-
AAOx3
No tachypnea on room air
No tachycardia
Abd soft
LLE aquacel dressings saturated, dressing removed no signs of active bleeding, compartments soft
Palpable graft pulse
foot dressing c/d/i, +doppler signal at marked area
Foot warm and pink
--- NOTE | 2024-09-15 12:00 | PTCARENOTE ---
11:30, Changed dressing in Left medial leg with 4x4 gauze, ABD pads, and Kerlix.
12:00, Reassessed the patient, no changes from previous assessments. Patient napping.
[2024-09-15] MEDS: ROXICODONE 5 MG PO ×2 (12:40→20:22)
[2024-09-15] MEDS: LIDOCAINE 4% PATCH 1 PATCH TOPICAL (13:09)
--- NOTE | 2024-09-15 13:13 | PTCARENOTE ---
Patient refused to get up to use bedside commode. This RN offered purewick, patient refused again. Performed bladder scan, showed 144mL. Patient also asked for lidocaine patch, applied to her right lower back. Patient left unit with transporters,
telepack on.
--- NOTE | 2024-09-15 14:49 | W.PN.UPDATE ---
Update Note
Progress Note Update
Patient for left 5th toe and metatarsal amputation today. Tolerated procedure and anesthesia without complication and returned to recovery room with vital signs stable and neurovascular status in tact. Adequate arterial perfusion of soft tissue
proximal to the amputation site noted. Primary closure achieved.
--- NOTE | 2024-09-15 15:30 | PTCARENOTE ---
Nursing report given to [address], patient will be directly transferred from PACU to Room 2010.
[2024-09-15 15:51] LABS: Hematocrit 27.2 % (37.0-47.0); Hemoglobin 8.5 g/dL (12.0-16.0)
--- NOTE | 2024-09-15 16:39 | PTCARENOTE ---
Received patient from PACU via bed around 1600 in stable condition. Neurocheck to LLE + post tibial pulse +sensation + movement. Dressing intact to left foot. Dressing on Left leg with sanguinous drainage. Patient oriented to room. Call ford in
reach.
[2024-09-15] MEDS: TYLENOL 650 MG PO (18:33)
[2024-09-15] MEDS: NON-FORMULARY ITEM 1 UNIT TOPICAL (20:24)
[2024-09-15] MEDS: HEPARIN 25000 UNITS/250 ML IV (21:03)
[2024-09-15] MEDS: MYRBETRIQ EXTENDED RELEASE 50 MG PO (22:48)
[2024-09-15] MEDS: ELAVIL 10 MG PO (22:48)
[2024-09-15] MEDS: ZYRTEC 5 MG PO (22:48)
[2024-09-16] MEDS: TYLENOL 650 MG PO (01:28)
[2024-09-16] MEDS: ROXICODONE 5 MG PO ×3 (01:29→19:43)
[2024-09-16] MEDS: DILAUDID 0.5 MG IV ×4 (03:12→17:03)
[2024-09-16 03:40] VITALS: BP 118/58
[2024-09-16 03:54] LABS: APTT 44.9 Sec (23.4-35.0)
[2024-09-16] MEDS: SYNTHROID 125 MCG PO (05:52)
[2024-09-16 07:25] VITALS: BP 157/69
[2024-09-16] MEDS: PLAVIX 75 MG PO (08:59)
[2024-09-16] MEDS: SODIUM BICARBONATE 650 MG PO ×2 (08:59→19:43)
[2024-09-16] MEDS: VITAMIN B-12 1000 MCG PO (08:59)
[2024-09-16] MEDS: NSS (PRESERVATIVE FREE) 10 ML IV (09:00)
[2024-09-16] MEDS: NORVASC 5 MG PO (09:00)
[2024-09-16] MEDS: PROTONIX IV 40 MG IV (09:00)
[2024-09-16 10:55] LABS: Hematocrit 23.7 % (37.0-47.0); Hemoglobin 7.5 g/dL (12.0-16.0); Mean Corp Hgb Conc. 31.6 g/dL (33.0-37.0); Mean Corpuscular Hgb 31.6 pg (27.0-31.0); Mean Platelet Volume 10.6 fL (7.4-10.4); Platelet Count 192 10^3/uL (130-400); Red Blood Cell Count 2.37 10^6/uL (4.20-5.40); Red Cell Dist. Width 19.1 % (11.5-14.5); White Blood Cell Count 8.8 10^3/uL (4.8-10.8)
[2024-09-16 11:24] LABS: Blood Urea Nitrogen 43 mg/dl (7-17); Calcium 8.4 mg/dl (8.4-10.2); Carbon Dioxide 23 mmol/L (22-30); Chloride 112 mmol/L (98-107); Estimated Creatinine Clearance 29 ml/min; Glucose 106 mg/dl (70-99); Potassium 4.6 mmol/L (3.5-5.1); Sodium 140 mmol/L (135-145); eGFR 37.56
--- NOTE | 2024-09-16 12:12 | W.PN.VS ---
Today's Communication / Plan
-
as above
Assessment/Plan
-
POD 3 Bypass and SFA/pop stent
Plan:
-wound care per podiatry for toe amp
-continue neurovascular checks
Subjective Data
-
Date of Service: September 16, 2024
No acute events. Pain controlled
Objective Data
-
Vital Signs
Temp Pulse Resp BP Pulse Ox
99.1 F 108 18 157/69 91
09/16/24 07:25 09/16/24 07:25 09/16/24 07:25 09/16/24 07:25 09/16/24 07:25
Intake and Output
09/15/24 09/16/24 09/17/24
06:59 06:59 06:59
Intake Total 1586.5 / 1595.5 719 / 719
Output Total 1085 / 1085 800 / 800
Balance 501.5 / 510.5 -81 / -81
Intake:
Oral fluids 480 / 480 510 / 510
IV fluids (Total) 1106.5 / 1115.5 109 / 109
Heparin 226.5 / 235.5 9 / 9
Nss 1,000 ml @ 80 mls/hr IV . 80 / 80
[id number] RONA Rx#:[id number]
Sterile Water For Injection 800 / 800
1000 ml 1,000 ml @ 100 mls/hr
IV .[id number] RONA with Sodium
Bicarbonate 150 Meq Rx#:
[id number]
normosol 100 / 100
IV piggybacks 100 / 100
Output:
Urine, Nuñez 285 / 285
Urine, Voided 800 / 800 800 / 800
Other:
Number of approximated MODERATE 2 1
amounts of urine
Lab Results
09/16/24 10:46
09/16/24 10:46
Calcium 8.4 mg/dl (8.4-10.2) 09/16/24 10:46
Total Bilirubin 0.4 mg/dl (0.2-1.3) 09/15/24 03:48
AST 16 U/L (14-36) 09/15/24 03:48
ALT 11 U/L (0-35) 09/15/24 03:48
Alkaline Phosphatase 62 U/L (38-126) 09/15/24 03:48
Total Protein 5.7 g/dl (6.3-8.2) L 09/15/24 03:48
Albumin 3.5 g/dl (3.5-5.0) 09/15/24 03:48
Physical Exam
-
NAD
incisions c/d/i
+graft pulse
+plantar signal
--- NOTE | 2024-09-16 13:16 | W.PN.POD ---
Today's Communication
Today's Communication
Primary closure of left 5th toe amp site with dorsal incision stable
Activity protocol as per vascular surgery service
Assessment / Plan
-
Post op day #1
-S/p left 5th toe and 5th metatarsal amputation due to dry gangrene. Primary closure achieved
-Excellent appearance with sutures in tact and no soft tissue necrotic changes noted. Wound edge color and turgor appearance indicated good perfusion
-Continue dry dressings only
-Partial weight bearing ok from podiatry standpoint. Refer to vascular surgery service for activity restrictions
-Will continue to monitor left dorsal hallux wound, currently stable.
Subjective
Objective
Temp Pulse Resp BP Pulse Ox
99.1 F 108 18 157/69 91
09/16/24 07:25 09/16/24 07:25 09/16/24 07:25 09/16/24 07:25 09/16/24 07:25
09/16/24 10:46
09/16/24 10:46
Vital Signs and Lab results were reviewed.
Physical Exam
Physical Exam
Dressing clean, dry and in tact. Removed to reveal incision site stable with sutures in tact and no wound edge necrosis
[2024-09-16 15:45] VITALS: BP 148/63
[2024-09-16] MEDS: NON-FORMULARY ITEM 1 UNIT TOPICAL (16:46)
[2024-09-16 18:26] LABS: APTT 156.8 Sec (23.4-35.0)
[2024-09-16 19:31] VITALS: BP 145/91
[2024-09-16] MEDS: MYRBETRIQ EXTENDED RELEASE 50 MG PO (22:51)
[2024-09-16] MEDS: ZYRTEC 5 MG PO (22:51)
[2024-09-16] MEDS: ELAVIL 10 MG PO (22:51)
[2024-09-16] MEDS: SENOKOT 8.6 MG PO (22:51)
[2024-09-16 23:02] VITALS: BP 128/67
[2024-09-17] VITALS (12 sets, daily range): BP systolic 115–153; BP diastolic 54–84; PULSE 113
[2024-09-17] MEDS: HEPARIN 25000 UNITS/250 ML IV (04:43)
[2024-09-17] MEDS: ROXICODONE 5 MG PO ×4 (06:28→21:28)
[2024-09-17] MEDS: SYNTHROID 125 MCG PO (06:28)
[2024-09-17 08:34] LABS: Blood Urea Nitrogen 41 mg/dl (7-17); Calcium 8.6 mg/dl (8.4-10.2); Carbon Dioxide 26 mmol/L (22-30); Chloride 111 mmol/L (98-107); Estimated Creatinine Clearance 29 ml/min; Glucose 106 mg/dl (70-99); Potassium 4.8 mmol/L (3.5-5.1); Sodium 140 mmol/L (135-145); eGFR 37.56
[2024-09-17] MEDS: SENOKOT 8.6 MG PO ×2 (08:53→20:11)
[2024-09-17] MEDS: VITAMIN B-12 1000 MCG PO (08:53)
[2024-09-17] MEDS: PLAVIX 75 MG PO (08:53)
[2024-09-17] MEDS: SODIUM BICARBONATE 650 MG PO ×2 (08:53→20:11)
[2024-09-17] MEDS: NORVASC 5 MG PO (08:53)
[2024-09-17] MEDS: PROTONIX IV 40 MG IV (08:54)
[2024-09-17] MEDS: NSS (PRESERVATIVE FREE) 10 ML IV (08:54)
--- NOTE | 2024-09-17 10:15 | W.PN.POD ---
Today's Communication
Today's Communication
Excellent perfusion to the lateral foot
surgical shoe ordered to facilitate activity
Assessment / Plan
-
Post op day #2
-S/p left 5th toe and 5th metatarsal amputation due to dry gangrene. Primary closure achieved
-Excellent appearance with sutures in tact and no soft tissue necrotic changes noted. Wound edge color and turgor appearance indicated good perfusion
-Continue dry dressings only
-Partial weight bearing ok from podiatry standpoint. Refer to vascular surgery service for activity restrictions. Surgical shoe ordered
-Will continue to monitor left dorsal hallux wound, currently stable.
Subjective
Objective
Temp Pulse Resp BP Pulse Ox
99.5 F 110 18 153/71 92
09/17/24 07:09 09/17/24 07:09 09/17/24 07:09 09/17/24 07:09 09/17/24 07:09
09/16/24 10:46
09/17/24 08:02
Vital Signs and Lab results were reviewed.
Physical Exam
Physical Exam
Dressing clean, dry and in tact. Removed to reveal incision site stable with sutures in tact and no wound edge necrosis
--- NOTE | 2024-09-17 10:46 | W.PN.VS ---
Today's Communication / Plan
-
f/u am labs. likely will need 2 PRBC
Assessment/Plan
-
POD 4 Bypass and SFA/pop stent
Plan:
-wound care per podiatry for toe amp
-continue neurovascular checks
-f/u Am labs and possible PRBC transfusion today
Subjective Data
-
Date of Service: September 17, 2024
Pt seen and examined at bedside. NAEO. Resting comfortably. Tachy to 110 but normotensive. Slight ooze from calf staple line but all compartments soft without concern for large hematoma. Pt subjectively tired, Hgb 7.5 yesterday am; may be
symptomatically anemic. awaiting AM labs
Objective Data
-
Vital Signs
Temp Pulse Resp BP Pulse Ox
99.5 F 110 18 153/71 92
09/17/24 07:09 09/17/24 07:09 09/17/24 07:09 09/17/24 07:09 09/17/24 07:09
Intake and Output
09/16/24 09/17/24 09/18/24
06:59 06:59 06:59
Intake Total 719 / 719 400 / 400 480 / 480
Output Total 800 / 800
Balance -81 / -81 400 / 400 480 / 480
Intake:
Oral fluids 510 / 510 400 / 400 480 / 480
IV fluids (Total) 109 / 109
Heparin 9 / 9
normosol 100 / 100
IV piggybacks 100 / 100
Output:
Urine, Voided 800 / 800
Other:
Number of approximated MODERATE 2 1
amounts of urine
How many times incontinent 6
MODERATE amount urine
Lab Results
09/17/24 08:02
Calcium 8.6 mg/dl (8.4-10.2) 09/17/24 08:02
Total Bilirubin 0.4 mg/dl (0.2-1.3) 09/15/24 03:48
AST 16 U/L (14-36) 09/15/24 03:48
ALT 11 U/L (0-35) 09/15/24 03:48
Alkaline Phosphatase 62 U/L (38-126) 09/15/24 03:48
Total Protein 5.7 g/dl (6.3-8.2) L 09/15/24 03:48
Albumin 3.5 g/dl (3.5-5.0) 09/15/24 03:48
Physical Exam
-
Gen: NAD, AOx3
Cards: tachy
Abd: soft, nt, nd
Ext: warm and well perfused. Incisions C/D/I; compartments soft
[2024-09-17 11:12] LABS: Hemoglobin 7.1 g/dL (12.0-16.0); Mean Corp Hgb Conc. 30.9 g/dL (33.0-37.0); Mean Corpuscular Hgb 30.6 pg (27.0-31.0); Mean Corpuscular Volume 99.1 fL (81.0-99.0); Platelet Count 189 10^3/uL (130-400); Red Blood Cell Count 2.32 10^6/uL (4.20-5.40); Red Cell Dist. Width 18.6 % (11.5-14.5); White Blood Cell Count 8.8 10^3/uL (4.8-10.8)
[2024-09-17 16:43] LABS: APTT 162.9 Sec (23.4-35.0)
[2024-09-17] MEDS: ZYRTEC 5 MG PO (20:11)
[2024-09-17] MEDS: MYRBETRIQ EXTENDED RELEASE 50 MG PO (20:11)
[2024-09-17] MEDS: ELAVIL 10 MG PO (20:11)
[2024-09-17] MEDS: DILAUDID 0.5 MG IV (23:53)
[2024-09-17 23:59] LABS: APTT 97.1 Sec (23.4-35.0)
[2024-09-18] VITALS (9 sets, daily range): BP systolic 112–150; BP diastolic 57–73; PULSE 105
[2024-09-18] MEDS: HEPARIN 25000 UNITS/250 ML IV (01:36)
[2024-09-18 05:04] LABS: Hematocrit 28.6 % (37.0-47.0); Hemoglobin 9.4 g/dL (12.0-16.0); Mean Corp Hgb Conc. 32.9 g/dL (33.0-37.0); Mean Corpuscular Hgb 31.4 pg (27.0-31.0); Mean Corpuscular Volume 95.7 fL (81.0-99.0); Platelet Count 182 10^3/uL (130-400); Red Blood Cell Count 2.99 10^6/uL (4.20-5.40); Red Cell Dist. Width 18.8 % (11.5-14.5); White Blood Cell Count 9.8 10^3/uL (4.8-10.8)
[2024-09-18 05:05] LABS: APTT 120.2 Sec (23.4-35.0)
[2024-09-18 05:22] LABS: Blood Urea Nitrogen 43 mg/dl (7-17); Calcium 8.6 mg/dl (8.4-10.2); Carbon Dioxide 29 mmol/L (22-30); Chloride 110 mmol/L (98-107); Estimated Creatinine Clearance 29 ml/min; Glucose 108 mg/dl (70-99); Sodium 141 mmol/L (135-145); eGFR 37.56
[2024-09-18] MEDS: SYNTHROID 125 MCG PO (06:04)
[2024-09-18] MEDS: ROXICODONE 5 MG PO ×4 (06:07→20:09)
[2024-09-18 07:10] LABS: APTT 113.8 Sec (23.4-35.0)
--- NOTE | 2024-09-18 09:02 | W.PN.VS ---
Addendum entered and electronically signed by Casye Murcia MD 09/18/24 10:14:
Seen and examined with [employer]URAL G[employer] ENGINEER. Agree with findings as noted below. Received blood transfusion yesterday. No specific complaints today. Left thigh and calf incisions all clean dry and intact. No drainage currently. The thigh and calf are completely
soft. There is no evidence of hematoma. Ankle incision is clean dry and intact as well. No hematoma. Easily palpable graft pulse. Foot is warm. Left fifth toe amputation site appears to be healing well. Plan/as discussed and noted below.
Original Note:
Today's Communication / Plan
-
Seen and assessed with Dr Murcia
Assessment/Plan
-
POD 5 Bypass and SFA/pop stent
Plan:
-wound care per podiatry for toe amp
-Hgb stable this morning
-OK for DC to rehab when bed available
-transition to compass today (plavix/xarelto d/t allergy)
Subjective Data
-
Date of Service: September 18, 2024
Pt seen at bedside this am with Dr Murcia. Pt offers no complaints at this time. No events overnight. No bleeding noted overnight.
Objective Data
-
Vital Signs
Temp Pulse Resp BP Pulse Ox
98.8 F 86 18 138/69 97
09/18/24 07:40 09/18/24 07:40 09/18/24 07:40 09/18/24 07:40 09/18/24 07:40
Intake and Output
09/17/24 09/18/24 09/19/24
06:59 06:59 06:59
Intake Total 400 / 400 1710 / 1710
Balance 400 / 400 1710 / 1710
Intake:
Oral fluids 400 / 400 960 / 960
Blood products 250 / 250
Blood Product Amount Infused ( 500 / 500
mL)
Packed Rbc Leukoreduced Unit 250 / 250
[id number]
Packed Rbc Leukoreduced Unit 250 / 250
[id number]
Other:
Number of approximated MODERATE 1
amounts of urine
Number of approximated LARGE 1
amounts of urine
How many times incontinent 6
MODERATE amount urine
Lab Results
09/18/24 04:38
09/18/24 04:38
Calcium 8.6 mg/dl (8.4-10.2) 09/18/24 04:38
Total Bilirubin 0.4 mg/dl (0.2-1.3) 09/15/24 03:48
AST 16 U/L (14-36) 09/15/24 03:48
ALT 11 U/L (0-35) 09/15/24 03:48
Alkaline Phosphatase 62 U/L (38-126) 09/15/24 03:48
Total Protein 5.7 g/dl (6.3-8.2) L 09/15/24 03:48
Albumin 3.5 g/dl (3.5-5.0) 09/15/24 03:48
Physical Exam
-
AAOx3
No tachypnea on room air
No tachycardia
Abd soft
LLE surgical sites CHELO, no drainage noted, all soft
Palpable graft pulse
foot dressing replaced, c/d/i, +doppler signal at marked area
Foot warm and pink
[2024-09-18] MEDS: VITAMIN B-12 1000 MCG PO (10:15)
[2024-09-18] MEDS: SODIUM BICARBONATE 650 MG PO ×2 (10:15→19:41)
[2024-09-18] MEDS: NSS (PRESERVATIVE FREE) 10 ML IV (10:15)
[2024-09-18] MEDS: NORVASC 5 MG PO (10:15)
[2024-09-18] MEDS: SENOKOT 8.6 MG PO ×2 (10:15→19:41)
[2024-09-18] MEDS: PLAVIX 75 MG PO (10:15)
[2024-09-18] MEDS: XARELTO 2.5 MG PO ×2 (10:16→19:41)
[2024-09-18] MEDS: PROTONIX IV 40 MG IV (10:16)
--- NOTE | 2024-09-18 11:04 | CM ---
Addendum entered by Marleny Doe 09/18/24 16:08:
CM spoke with patient daughter; Tracie [phone]/home [phone]. Referral sent to [facility] and await responses.
Addendum entered by Marleny Doe 09/18/24 15:45:
Patient seen at bedside. Patient stated that she would like CM to call her daughter Tracie Shah at [phone]. CM called and left requesting call back to review. Patient request is for facilities closer to [place] or [place]. CM called to
patient and requested ability to send referrals to local facilities but was unable to reach patient with either Cell or room phone.
Original Note:
Patient seen at bedside on . Patient indicated that she was uncomfortable and requested CM to return. CM will continue to follow for discharge planning needs.
Plan; SNF vs home with VN; pending patient choices send referrals
[2024-09-18] MEDS: TYLENOL 650 MG PO (19:40)
[2024-09-18] MEDS: MYRBETRIQ EXTENDED RELEASE 50 MG PO (22:04)
[2024-09-18] MEDS: ELAVIL 10 MG PO (22:05)
[2024-09-18] MEDS: ZYRTEC 5 MG PO (22:05)
[2024-09-19 03:15] VITALS: BP 101/60
[2024-09-19] MEDS: ROXICODONE 5 MG PO ×3 (05:51→21:07)
[2024-09-19] MEDS: SYNTHROID 125 MCG PO (05:52)
[2024-09-19 06:38] LABS: Hematocrit 29.8 % (37.0-47.0); Hemoglobin 9.7 g/dL (12.0-16.0); Mean Corp Hgb Conc. 32.6 g/dL (33.0-37.0); Mean Corpuscular Hgb 31.6 pg (27.0-31.0); Mean Corpuscular Volume 97.1 fL (81.0-99.0); Mean Platelet Volume 10.2 fL (7.4-10.4); Platelet Count 190 10^3/uL (130-400); Red Blood Cell Count 3.07 10^6/uL (4.20-5.40); Red Cell Dist. Width 18.2 % (11.5-14.5); White Blood Cell Count 9.2 10^3/uL (4.8-10.8)
[2024-09-19 07:03] LABS: Blood Urea Nitrogen 41 mg/dl (7-17); Calcium 8.9 mg/dl (8.4-10.2); Carbon Dioxide 30 mmol/L (22-30); Chloride 107 mmol/L (98-107); Estimated Creatinine Clearance 29 ml/min; Glucose 105 mg/dl (70-99); Sodium 139 mmol/L (135-145); eGFR 37.56
[2024-09-19 07:16] VITALS: BP 142/76
--- NOTE | 2024-09-19 08:01 | W.PN.POD ---
Today's Communication
Today's Communication
transport to my office from [facility] in 2 weeks for suture removal
Assessment / Plan
-
Post op day #3
-S/p left 5th toe and 5th metatarsal amputation due to dry gangrene. Primary closure achieved
-Excellent appearance with sutures in tact and no soft tissue necrotic changes noted. Wound edge color and turgor appearance indicated good perfusion
-Continue dry dressings only
-Partial weight bearing ok from podiatry standpoint.
-Will continue to monitor left dorsal hallux wound, currently stable.
-Agree with discharge to [facility]. Continue dry dressing changes with adaptic and return to my office for suture removal in 2 weeks
Subjective
Objective
Temp Pulse Resp BP Pulse Ox
99.5 F 108 18 142/76 92
09/19/24 07:16 09/19/24 07:16 09/19/24 07:16 09/19/24 07:16 09/19/24 07:16
09/19/24 06:10
09/19/24 06:10
Vital Signs and Lab results were reviewed.
--- NOTE | 2024-09-19 08:52 | W.PN.VS ---
Today's Communication / Plan
-
See below.
Assessment/Plan
-
POD 6 Bypass and SFA/pop stent
Plan:
-wound care per podiatry for toe amp, orders placed
- Hemoglobin remained stable
- Patient is cleared for discharge, awaiting bed placement to intermediate facility per case management
Subjective Data
-
Date of Service: September 19, 2024
Patient seen and examined at bedside, offers no complaints. Reports well-managed postoperative pain. Denies nausea, vomiting, fever, and chills.
Objective Data
-
Vital Signs
Temp Pulse Resp BP Pulse Ox
99.5 F 108 18 142/76 92
09/19/24 07:16 09/19/24 07:16 09/19/24 07:16 09/19/24 07:16 09/19/24 07:16
Intake and Output
09/18/24 09/19/24 09/20/24
06:59 06:59 06:59
Intake Total 1710 / 1710 1200 / 1200
Balance 1710 / 1710 1200 / 1200
Intake:
Oral fluids 960 / 960 1200 / 1200
Blood products 250 / 250
Blood Product Amount Infused ( 500 / 500
mL)
Packed Rbc Leukoreduced Unit 250 / 250
[id number]
Packed Rbc Leukoreduced Unit 250 / 250
[id number]
Other:
Number of approximated MODERATE 4 1
amounts of urine
Number of approximated LARGE 1 2
amounts of urine
How many times incontinent 6
MODERATE amount urine
Lab Results
09/19/24 06:10
09/19/24 06:10
Calcium 8.9 mg/dl (8.4-10.2) 09/19/24 06:10
Total Bilirubin 0.4 mg/dl (0.2-1.3) 09/15/24 03:48
AST 16 U/L (14-36) 09/15/24 03:48
ALT 11 U/L (0-35) 09/15/24 03:48
Alkaline Phosphatase 62 U/L (38-126) 09/15/24 03:48
Total Protein 5.7 g/dl (6.3-8.2) L 09/15/24 03:48
Albumin 3.5 g/dl (3.5-5.0) 09/15/24 03:48
Physical Exam
-
AAOx3
No tachypnea on room air
No tachycardia
Abd soft
LLE surgical sites CHELO, no drainage noted, all soft
Palpable graft pulse
foot dressing replaced, c/d/i, +doppler signal at marked area
Foot warm and pink
[2024-09-19] MEDS: SENOKOT 8.6 MG PO ×2 (08:53→21:07)
[2024-09-19] MEDS: NORVASC 5 MG PO (08:53)
[2024-09-19] MEDS: XARELTO 2.5 MG PO ×2 (08:53→21:06)
[2024-09-19] MEDS: PLAVIX 75 MG PO (08:53)
[2024-09-19] MEDS: NSS (PRESERVATIVE FREE) 10 ML IV (08:53)
[2024-09-19] MEDS: PROTONIX IV 40 MG IV (08:53)
[2024-09-19] MEDS: SODIUM BICARBONATE 650 MG PO ×2 (08:53→21:06)
[2024-09-19] MEDS: VITAMIN B-12 1000 MCG PO (08:54)
--- NOTE | 2024-09-19 10:39 | PN.CDI ---
CDI
- -
CDI:
Physician Documentation Request
Admit Date: 09/13/24 11:21
Dear Chanda ROWLAND,
Patient admitted with peripheral artery disease.
09/19 Vascular surgery PN, 'POD 6 Bypass and SFA/pop stent.'
09/18 Vascular surgery PN,'Received blood transfusion yesterday.
Hgb documented below:
Laboratory Tests
09/13/24 09/14/24 09/15/24
18:38 03:53 03:48
Hgb 10.6 L 10.0 L 9.9 L
09/15/24 09/16/24 09/17/24
15:44 10:46 10:40
Hgb 8.5 L 7.5 L 7.1 L
09/18/24 09/19/24
04:38 06:10
Hgb 9.4 L D 9.7 L
Based on the above, please provide in your note the likely diagnosis you are evaluating, monitoring and/or treating?
Acute blood loss anemia
Insignificant abnormal lab findings only
Other
Use of terms such as suspected, likely, concern for, or probable (associated with a specific diagnosis that is being evaluated, monitored, or treated as if it exists) are acceptable and can be coded in the inpatient setting, when documented at the
time of discharge.
Thank you,
Melissa WALLACE,RN,CCDS
CDI Specialist
Available via [place] text
Please use your independent medical judgment in providing your response.
--- NOTE | 2024-09-19 11:01 | W.PN.UPDATE ---
Update Note
Progress Note Update
In response to CDI:
Patient admitted with peripheral artery disease.
09/19 Vascular surgery PN, 'POD 6 Bypass and SFA/pop stent.'
09/18 Vascular surgery PN,'Received blood transfusion yesterday.
Hgb documented below:
Laboratory Tests
09/13/24 09/14/24 09/15/24
18:38 03:53 03:48
Hgb 10.6 L 10.0 L 9.9 L
09/15/24 09/16/24 09/17/24
15:44 10:46 10:40
Hgb 8.5 L 7.5 L 7.1 L
09/18/24 09/19/24
04:38 06:10
Hgb 9.4 L D 9.7 L
Based on the above, please provide in your note the likely diagnosis you are evaluating, monitoring and/or treating?
Acute blood loss anemia, normal variant following procedure treated with blood transfusion and monitor with daily hemoglobin until stabilized
[2024-09-19 11:10] VITALS: BP 135/63
[2024-09-19] MEDS: TYLENOL 650 MG PO ×2 (11:49→23:47)
--- NOTE | 2024-09-19 14:28 | CM ---
Addendum entered by Sadaf Graves RN 09/19/24 16:05:
IMM reviewed.
Addendum entered by Sadaf Graves RN 09/19/24 14:52:
[facility] can accept after 3pm tomorrow (09/20/2024).
Call report to: [phone]
Fax report to: [phone]
Original Note:
Reviewed the chart notes and spoke with the patient at the beside and her daughter via telephone. CM confirmed with [facility] Admissions Liaison that [facility] has a bed to offer for tomorrow. [facility] has no beds. Attending updated.
Patient and daughter in agreement with discharge plan. CM continues to be available to patient/family and is monitoring medical plan for needs at discharge.
Plan: Discharge to [facility].
[2024-09-19 15:06] VITALS: BP 99/57
[2024-09-19 19:20] VITALS: BP 148/68
[2024-09-19] MEDS: ZYRTEC 5 MG PO (21:05)
[2024-09-19] MEDS: ELAVIL 10 MG PO (21:07)
[2024-09-19] MEDS: MYRBETRIQ EXTENDED RELEASE 50 MG PO (21:07)
[2024-09-19 23:10] VITALS: BP 142/71
[2024-09-20 03:10] VITALS: BP 133/61
[2024-09-20] MEDS: SYNTHROID 125 MCG PO (05:18)
[2024-09-20 06:55] LABS: Hematocrit 29.2 % (37.0-47.0); Hemoglobin 9.4 g/dL (12.0-16.0); Mean Corp Hgb Conc. 32.2 g/dL (33.0-37.0); Mean Corpuscular Hgb 31.4 pg (27.0-31.0); Mean Corpuscular Volume 97.7 fL (81.0-99.0); Mean Platelet Volume 10.8 fL (7.4-10.4); Platelet Count 213 10^3/uL (130-400); Red Blood Cell Count 2.99 10^6/uL (4.20-5.40); Red Cell Dist. Width 17.3 % (11.5-14.5); White Blood Cell Count 8.8 10^3/uL (4.8-10.8)
[2024-09-20 07:20] VITALS: BP 146/66
--- NOTE | 2024-09-20 07:55 | W.PN.VS ---
Today's Communication / Plan
-
Patient seen and examined at bedside with Dr. Casey Murcia M.D., below plan reviewed with attending.
Assessment/Plan
-
POD 7 Bypass and SFA/pop stent
Plan:
-Wound care per podiatry for toe amp, orders placed
- Patient has bed at rehab discharge today
- Follow-up placed in discharge instructions
Subjective Data
-
Date of Service: September 20, 2024
Patient seen and examined at chair side, offers no complaints. Reports eagerness for discharge to SNF to begin steps of recovery.
Objective Data
-
Vital Signs
Temp Pulse Resp BP Pulse Ox
97.5 F 92 17 133/61 94
09/20/24 03:10 09/20/24 03:10 09/20/24 03:10 09/20/24 03:10 09/20/24 03:10
Intake and Output
09/19/24 09/20/24 09/21/24
06:59 06:59 06:59
Intake Total 1200 / 1200 480 / 480
Balance 1200 / 1200 480 / 480
Intake:
Oral fluids 1200 / 1200 480 / 480
Other:
Number of approximated MODERATE 4 3
amounts of urine
Number of approximated LARGE 2 1
amounts of urine
Lab Results
09/20/24 05:46
09/19/24 06:10
Calcium 8.9 mg/dl (8.4-10.2) 09/19/24 06:10
Total Bilirubin 0.4 mg/dl (0.2-1.3) 09/15/24 03:48
AST 16 U/L (14-36) 09/15/24 03:48
ALT 11 U/L (0-35) 09/15/24 03:48
Alkaline Phosphatase 62 U/L (38-126) 09/15/24 03:48
Total Protein 5.7 g/dl (6.3-8.2) L 09/15/24 03:48
Albumin 3.5 g/dl (3.5-5.0) 09/15/24 03:48
Physical Exam
-
AAOx3
No tachypnea on room air
No tachycardia
Abd soft
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
Palpable graft pulse
foot dressing replaced, c/d/i
Foot warm and pink
[2024-09-20] MEDS: PLAVIX 75 MG PO (08:00)
[2024-09-20] MEDS: XARELTO 2.5 MG PO (08:01)
[2024-09-20] MEDS: NSS (PRESERVATIVE FREE) 10 ML IV (08:01)
[2024-09-20] MEDS: VITAMIN B-12 1000 MCG PO (08:01)
[2024-09-20] MEDS: PROTONIX IV 40 MG IV (08:01)
[2024-09-20] MEDS: SODIUM BICARBONATE 650 MG PO (08:01)
[2024-09-20] MEDS: SENOKOT 8.6 MG PO (08:01)
[2024-09-20] MEDS: NORVASC 5 MG PO (08:21)
[2024-09-20] MEDS: ROXICODONE 5 MG PO ×2 (08:21→15:30)
--- NOTE | 2024-09-20 09:26 | W.DS.TRANS ---
DC Summary - [employer]
-
Discharge Instructions:
Discharge Diagnosis/Procedures Chronic limb threatening ischemia left lower
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
Severe ischemic rest pain
Left below the knee popliteal artery to plantar
artery bypass with ipsilateral nonreversed
greater saphenous vein, right common femoral
artery duplex assisted cannulation, aortogram
pelvic angiogram and left lower extremity
arteriogram, balloon angioplasty and stent
placement left distal SFA to above-knee
popliteal artery with Zilver PTX 6 mm x 12 cm
stent
Left 5th toe and metatarsal amputation
Diet As tolerated,Low Cholesterol
Activity No strenuous activity
Additional Activity Can ambulate with Darco shoe on left foot and
with partial weightbearing, do not secure shoe
tight at ankle on left foot as bypass ends at
ankle (where you see suture line) if too much
direct pressure is placed here bypass can become
occluded.
Driving Restrictions Not until seen by your Dr
Bathing Restrictions OK to Shower
Wound Care Place nonadherent pad/dressing over suture line
of left fifth digit amputation site at foot then
secure by wrapping Ton over foot with paper
tape, change daily or as needed if soiled. Be
sure to not make ton tight or place additional
pressure around left foot/ankle as bypass is
sewn in at ankle site and placing too much
pressure over ankle can occlude bypass. Patient
should wear heel lift boots while in bed to
offset heel pressure but again do not secure
tightly over ankle. Left leg staple sites/
sutures at ankle can be left open to air.
Instructions:
Stand-Alone Forms: Vascular Surg Discharge Instr
Changes to Home Medications: Yes
Discharge Medications:
DC Medications w/original date entered in [employer]
Prevagen 1 tab PO DAILY Supplement 08/31/24
amitriptyline 10 mg tablet 10 mg PO HS Sleep 08/31/24
amlodipine 5 mg tablet 5 mg PO DAILY Blood Pressure 08/31/24
cyanocobalamin (vitamin B-12) 1,000 mcg tablet (Vitamin B-12) 1,000 mcg PO DAILY Supplement 08/31/24
hydrocodone 5 mg-acetaminophen 325 mg tablet 1 tab PO Q6H PRN pain 08/31/24
levocetirizine 5 mg tablet (Xyzal) 5 mg PO HS Allergies 08/31/24
levothyroxine 125 mcg tablet 125 mcg PO DAILY Thyroid 08/31/24
lidocaine 1.8 % topical patch 1 patch topical DAILY PRN Pain 08/31/24
acetaminophen 650 mg tablet,extended release 1,300 mg PO Q12H RA 09/12/24
mirabegron 25 mg tablet,extended release 24 hr (Myrbetriq) 50 mg PO HS Urinary Issue 09/12/24
temazepam 30 mg capsule 30 mg PO HS PRN insomnia 09/12/24
clopidogrel 75 mg tablet 75 mg PO DAILY #90 tabs 09/19/24
docusate sodium 100 mg capsule 100 mg PO BIDPRN PRN constipation #60 caps 09/19/24
rivaroxaban 2.5 mg tablet (Xarelto) 2.5 mg PO BID #180 tabs 09/19/24
Home Medication Changes
Added:
clopidogrel 75 mg tablet 75 mg PO DAILY #90 tabs 09/19/24
docusate sodium 100 mg capsule 100 mg PO BIDPRN PRN constipation #60 caps 09/19/24
rivaroxaban 2.5 mg tablet (Xarelto) 2.5 mg PO BID #180 tabs 09/19/24
Pending Results: No
[2024-09-20] MEDS: TYLENOL 650 MG PO (10:52)
--- NOTE | 2024-09-20 10:54 | CM ---
Patient has been medically cleared for discharge to [facility] for care home and rehab services. Patient, daughter Tracie and [place] liaison, Brianna notified of transport time.
Call report to: [phone]
Fax report to: [phone]
[2024-09-20 11:45] VITALS: BP 139/71
--- NOTE | 2024-09-20 15:49 | PTCARENOTE ---
Report called to [facility] and gave report to
[2024-09-20 15:50] VITALS: BP 152/75
== END 2024-09-20 16:20 | DRG 240 ==
LOC: 2 SOUTH 11:21
PROVIDERS: Nurse Practitioner; Nurse Practitioner Acute Care; Nurse Practitioner Primary Care; Surgery Vascular Surgery; ADMITTING PHYSICIAN Surgery Vascular Surgery; CONSULT PHYSICIAN Internal Medicine; CONSULT PHYSICIAN Podiatrist Foot & Ankle Surgery; PRIMARYCARE PHYSICIAN Family Medicine
PROC: 047N34Z Dilation of Left Popliteal Artery with Drug-eluting Intraluminal Device, Percutaneous Approach (ICD-10-PCS; 2024-09-13)
PROC: 041N09P Bypass Left Popliteal Artery to Foot Artery with Autologous Venous Tissue, Open Approach (ICD-10-PCS; 2024-09-13)
PROC: B41D1ZZ Fluoroscopy of Aorta and Bilateral Lower Extremity Arteries using Low Osmolar Contrast (ICD-10-PCS; 2024-09-13)
PROC: 0Y6N0ZF Detachment at Left Foot, Partial 5th Ray, Open Approach (ICD-10-PCS; 2024-09-15)
PROC: 30233N1 Transfusion of Nonautologous Red Blood Cells into Peripheral Vein, Percutaneous Approach (ICD-10-PCS; 2024-09-17)
DX: I70.262 Atherosclerosis of native arteries of extremities with gangrene, left leg (principal); D62 Acute posthemorrhagic anemia; E87.22 Chronic metabolic acidosis; L97.529 Non-pressure chronic ulcer of other part of left foot with unspecified severity; E03.9 Hypothyroidism, unspecified; M06.9 Rheumatoid arthritis, unspecified; N18.9 Chronic kidney disease, unspecified; E87.5 Hyperkalemia; I12.9 Hypertensive chronic kidney disease with stage 1 through stage 4 chronic kidney disease, or unspecified chronic kidney disease; Z87.891 Personal history of nicotine dependence
CPT/HCPCS: 88305; 88311; 37226; 71045; 73620; 80048; 80053; 85014; 85018; 85027; 85610; 85730; 86850; 86900; 86901; 86920; 97110; 97162; 97167; 97530; 97535; C1725; C1769; C1874; C1887; C1894; P9016

== ENCOUNTER 2025-01-26 21:55 | Inpatient (IN) | payer MEDICARE, SELFPAY ==
[2025-01-26 15:22] VITALS: BP 126/70
[2025-01-26 16:02] LABS: Hematocrit 33.0 % (37.0-47.0); Hemoglobin 10.5 g/dL (12.0-16.0); Mean Corp Hgb Conc. 31.8 g/dL (33.0-37.0); Mean Corpuscular Volume 100.6 fL (81.0-99.0); Nucleated Red Blood Cells % 0 %; Platelet Count 291 10^3/uL (130-400); Red Cell Dist. Width 13.7 % (11.5-14.5)
[2025-01-26 16:18] LABS: ALT (SGPT) 21 U/L (0-35); AST (SGOT) 20 U/L (14-36); Albumin 3.6 g/dl (3.5-5.0); Alkaline Phosphatase 85 U/L (38-126); Blood Urea Nitrogen 36 mg/dl (7-17); Calcium 8.9 mg/dl (8.4-10.2); Carbon Dioxide 22 mmol/L (22-30); Chloride 111 mmol/L (98-107); Glucose 108 mg/dl (70-99); Potassium 4.9 mmol/L (3.5-5.1); Sodium 140 mmol/L (135-145); Total Protein 6.6 g/dl (6.3-8.2); eGFR 29.76
--- NOTE | 2025-01-26 17:51 | ED.GENMED ---
History of Present Illness
General
Chief Complaint: Vascular Symptoms
Source: patient
Exam Limitations: none
Time Seen by Provider: 01/26/25 17:32
History of Present Illness
History of Present Illness:
84-year-old female with peripheral arterial disease patient of Dr. Murcia's presents complaining of increasing pain to the right third toe. Recent seen by podiatry and started on Cipro for potential infection. She was recommended coming here by
podiatry for evaluation. She is not a diabetic. She has significant pain to the foot. No chest pain or shortness of breath.
Phy Exam
Physical Exam
Physical Exam:
General: Well-appearing female no acute respiratory distress
HEENT normal cephalic atraumatic
Heart: Regular rate and rhythm
Lungs: Clear no wheeze
Vascular: Dopplerable pulse to the right foot. There is a necrotic toe and the third toe. The foot is tender however the foot is warm
Extremities no cyanosis
Course
Orders/Labs/Results
Orders:
Orders
01/26/25 15:45
Complete Blood Count/With Diff Urgent
Comprehensive Metabolic Panel Urgent
Lactic Acid Urgent
Blood Culture Urgent
ROSELIA Source: Blood/Venous
Specimen Description:
01/26/25 17:50
CR Foot - Right Min 3 Views Urgent
Comment:
Reason For Exam: infection 3rd toe
01/26/25 17:55
US Periph Art LOWER Ext w TOI Urgent
Reason For Exam: right foot pain, necrotic toe
01/26/25 18:04
Acetaminophen [Tylenol] 650 mg PO NOW STA
Abnormal Lab Results
01/26/25
15:45
RBC 3.28 L 10^6/uL
(4.20-5.40)
Hgb 10.5 L g/dL
(12.0-16.0)
Hct 33.0 L %
(37.0-47.0)
MCV 100.6 H fL
(81.0-99.0)
MCH 32.0 H pg
(27.0-31.0)
MCHC 31.8 L g/dL
(33.0-37.0)
MPV 10.5 H fL
(7.4-10.4)
Abs Immat Gran (auto) 0.1 H 10^3/uL
(0-0.05)
Absolute Lymphs (auto) 0.8 L 10^3/uL
(1.2-3.4)
Absolute Monos (auto) 0.7 H 10^3/uL
(0.1-0.6)
Immature Gran % 0.6 H %
(0-0.5)
Neutrophils % 77.1 H %
(42.2-75.2)
Lymphocytes % 10.5 L %
(20.5-51.1)
Chloride 111 H mmol/L
(98-107)
BUN 36 H mg/dl
(7-17)
Creatinine 1.7 H mg/dL
(0.6-1.0)
Glucose 108 H mg/dl
(70-99)
01/26/25 15:45
01/26/25 15:45
Vital Signs
Initial and Last Documented VS:
Initial Vital Signs
Temp Pulse Resp BP Pulse Ox
97.8 F 85 18 126/70 98
01/26/25 15:22 01/26/25 15:22 01/26/25 15:22 01/26/25 15:22 01/26/25 15:22
Last Documented Vital Signs
Temp Pulse Resp BP Pulse Ox
97.9 F 103 18 133/76 97
01/26/25 18:49 01/26/25 18:49 01/26/25 18:49 01/26/25 19:52 01/26/25 18:49
MDM/Problems Addressed
Differential Diagnosis Includes:
Patient presents for evaluation of necrotic right third toe wound with known history of peripheral arterial disease requiring a bypass surgery on the left lower extremity. The pulses dopplerable on exam. X-ray pending to evaluate for
osteomyelitis. Will reach out to vascular for their recommendations as far as other imaging
*Pulse Oximetry
SaO2: 98
Patient hypoxic: no
*Critical Care Note
Total Time (30-74mins, 75-104mins- exclusive of procedures): Not Applicable
Update Note
Update Note:
Arterial ultrasound recommended by vascular surgery was performed. X-ray demonstrates no obvious sign of osteomyelitis. Patient has increased pain to the foot at rest although she has a dopplerable pulse to the foot. Discussed with vascular
surgery. Admit to hospital for necrotic right third toe
ED Attending Note
-
Portions of this chart may have been created with voice recognition software.� Occasional wrong word or��sound alike� substitutions may have occurred due to the inherent limitations of voice recognition software.
Discharge Plan
Departure
Patient Disposition: Admit
Date of Disposition: 01/26/25
Time of Disposition: 21:00
Presentation/result/management discussed w/ accepting MD/DO: Hospitalist
Discharge Problem:
necrotic toe
Prescriptions:
No Action
hydrocodone-acetaminophen 5-325 mg Tablet
1 tab PO Q6H PRN (Reason: pain)
cyanocobalamin (vitamin B-12) [Vitamin B-12] 1,000 mcg Tablet
1,000 mcg PO DAILY
amlodipine 5 mg Tablet
5 mg PO DAILY
amitriptyline 10 mg Tablet
10 mg PO HS
levothyroxine 125 mcg Tablet
125 mcg PO DAILY
levocetirizine [Xyzal] 5 mg Tablet
5 mg PO HS
lidocaine 1.8 % Adhesive Patch,Medicated
1 patch TOPICAL DAILY PRN (Reason: Pain)
Rx Instructions:
APPLY TO THE BACK
Prevagen
1 tab PO DAILY
temazepam 30 mg Capsule
30 mg PO HS PRN (Reason: insomnia)
mirabegron [Myrbetriq] 25 mg Tablet Extended Release 24 Hr
50 mg PO HS
acetaminophen 650 mg Tablet Extended Release
1,300 mg PO Q12H
docusate sodium 100 mg Capsule
100 mg PO BIDPRN PRN (Reason: constipation) Qty: 60 0RF
clopidogrel 75 mg Tablet
75 mg PO DAILY Qty: 90 0RF
rivaroxaban [Xarelto] 2.5 mg Tablet
2.5 mg PO BID Qty: 180 0RF
Referrals:
Wesley Thapa DO [Family Provider, Family Practice]
Interventions
Interventions:
*Risk Screen - Suicide Last Done: 01/26/25 15:26
*General Assessment Last Done: 01/26/25 15:26
*Neglect/Abuse Screening Last Done: 01/26/25 15:26
*ED COVID-19 Vaccine History Last Done: 01/26/25 15:26
*ED Influenza Vaccine History Last Done: 01/26/25 15:26
ED- Cardiac Assessment Last Done: 01/26/25 18:21
ED- Pulmonary Assessment Last Done: 01/26/25 18:21
ED-Peripheral Vascular Assessment Last Done: 01/26/25 18:21
ED-Skin Assessment Last Done: 01/26/25 18:28
Discharge Date and Time
Print Language: K[place]
[2025-01-26] MEDS: TYLENOL 650 MG PO (18:19)
[2025-01-26 18:21] VITALS: BMI 26.6
[2025-01-26 18:24] VITALS: BP 141/65
[2025-01-26 18:49] VITALS: BP 119/94
--- NOTE | 2025-01-26 19:41 | PTCARENOTE ---
Rt Leg PAL with TOI done. 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 Report to follow.
[2025-01-26 19:52] VITALS: BP 133/76
--- NOTE | 2025-01-26 21:37 | HPS.HSE ---
Family Physician
-
Family Physician: Wesley Thapa
Chief Complaint
-
R Foot Pain
History of Present Illness
Patient is an 84y F with PMH significant for ASCVD / PAD, hypertension and hypothyroidism who presents to ED complaining of R foot pain x several weeks. Patient states that her symptoms initially started in October when she banged her foot into a
chair leg. Her symptoms have persisted / progressed since that time. She has been followed by her usual Commercial Trailer Truck Driver - Dr. Breen - who started her on ciprofloxacin about 4-5 days ago. She had noted no improvement in her symptoms and yesterday
Jamshid advised her to present to ED for further evaluation.
Patient denies any systemic complaints including fevers / chills, N/V/D, etc.
Patient was last hospitalized at in September 2024 when she underwent revascularization of the LLE (Dr. Murcia) and amputation of the L 5th toe / MT head (Dr. Lafleur).
Medical History
Past Medical History
Past Medical History: Reports Other
Additional Past Medical History:
ASCVD / PAD
Hypertension
Hypothyroidism
CKD III
Anemia of Chronic Disease
Rheumatoid Arthritis
Past Surgical History: Reports Other
Additional Past Surgical History:
09/13/24: Left popliteal to plantar artery bypass. Balloon angioplasty / stent to L distal SFA.
09/15/24: Amputation of L 5th toe and metatarsal head.
T&A
Bilateral Hand Surgery
Left LEROY (s/p fracture)
Thyroidectomy
Social History
Tobacco: Former Smoker
Alcohol: Occasional
Drug: None
Family History
Family History: Not pertinent
Allergies / Home Medications
Allergies reflects when Allergies were last updated in [facility].
Home Medications with original date entered in [facility]
Allergy/Medication List:
Allergies
Allergy/AdvReac Type Severity Reaction Status Date / Time
baclofen Allergy Unknown Verified 01/26/25 15:25
Benzodiazepines Allergy Unknown Verified 01/26/25 15:25
diazepam (From Valium) Allergy Unknown Verified 01/26/25 15:25
duloxetine Allergy Unknown Verified 01/26/25 15:25
gabapentin Allergy Unknown Verified 01/26/25 15:25
meloxicam Allergy Anaphylaxis Verified 01/26/25 15:25
methotrexate Allergy Unknown Verified 01/26/25 15:25
pregabalin (From Lyrica) Allergy Unknown Verified 01/26/25 15:25
sulfamethoxazole (From Allergy Rash Verified 01/26/25 15:25
Bactrim)
trimethoprim (From Bactrim) Allergy Rash Verified 01/26/25 15:25
Home Medications
Prevagen 1 tab PO DAILY Supplement 08/31/24
amitriptyline 10 mg tablet 10 mg PO HS Sleep 08/31/24
amlodipine 5 mg tablet 5 mg PO DAILY Blood Pressure 08/31/24
cyanocobalamin (vitamin B-12) 1,000 mcg tablet (Vitamin B-12) 1,000 mcg PO DAILY Supplement 08/31/24
hydrocodone 5 mg-acetaminophen 325 mg tablet 1 tab PO Q6H PRN pain 08/31/24
levocetirizine 5 mg tablet (Xyzal) 5 mg PO HS Allergies 08/31/24
levothyroxine 125 mcg tablet 125 mcg PO DAILY Thyroid 08/31/24
lidocaine 1.8 % topical patch 1 patch topical DAILY PRN Pain 08/31/24
acetaminophen 650 mg tablet,extended release 1,300 mg PO Q12H RA 09/12/24
mirabegron 25 mg tablet,extended release 24 hr (Myrbetriq) 50 mg PO HS Urinary Issue 09/12/24
temazepam 30 mg capsule 30 mg PO HS PRN insomnia 09/12/24
clopidogrel 75 mg tablet 75 mg PO DAILY #90 tabs 09/19/24
docusate sodium 100 mg capsule 100 mg PO BIDPRN PRN constipation #60 caps 09/19/24
rivaroxaban 2.5 mg tablet (Xarelto) 2.5 mg PO BID #180 tabs 09/19/24
ciprofloxacin HCl 500 mg tablet 500 mg PO BID 01/26/25
Only medications in bold were confirmed.
Multiple other medications listed on September hospitalization / discharge patient indicates that she is not currently taking.
Review of Systems
-
History Source: Patient
A 12 point ROS was completed and negative except as noted: Yes
Constitutional: Denies Fever, Fatigue or Chills
Respiratory: Denies Cough or Trouble Breathing
Cardiac: Denies Chest Pain or Palpitations
Abdomen/GI: Denies Abdominal Pain, Nausea, Vomiting or Diarrhea
: Denies Dysuria, Frequency or Flank Pain
Musculoskeletal: Reports Joint Pain and Edema
Skin: Reports Other (Redness / pain R foot.)
Psych: Denies Depression or Anxiety
Physical Exam
Vital Signs
Vital Signs
Temp Pulse Resp BP Pulse Ox
97.9 F 103 18 133/76 97
01/26/25 18:49 01/26/25 18:49 01/26/25 18:49 01/26/25 19:52 01/26/25 18:49
Physical Exam
General: Other (84y F in no acute distress.)
HEENT: Moist mucous membranes and PERRLA
Respiratory: Clear; No Wheezes, Rales or Rhonchi
Cardiac: S1/S2 and Regular Rhythm; No Murmur
GI: Soft, Non Tender, Non Distended and Normal Bowel Sounds
Musculoskeletal: Other (Erythema and mild edema of the R forefoot and all toes. Pulses not appreciable on exam. R 3rd toe with necrotic change of distal tip.)
Neuro: AO x 3
Laboratory Results
-
01/26/25 15:45
01/26/25 15:45
Laboratory Results
Lactic Acid 1.0 mmol/L (0.7-2.0) 01/26/25 15:45
Total Bilirubin 0.4 mg/dl (0.2-1.3) 01/26/25 15:45
AST 20 U/L (14-36) 01/26/25 15:45
ALT 21 U/L (0-35) 01/26/25 15:45
Alkaline Phosphatase 85 U/L (38-126) 01/26/25 15:45
Impression/Plan
-
A/P: Patient is an 84y F with PMH significant for ASCVD / PAD who presents to ED complaining of R foot pain x several weeks.
ASCVD / PAD
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
- Admit for further evaluation and treatment.
- Patient denies any anticoagulants or antiplatelet agents despite prior med list.
- Vascular Surgery evaluation for additional recommendations / possible ischemic evaluation and intervention.
- IV heparin infusion for now. IV abx coverage acutely.
- Follow pulse checks / vascular checks.
- Will likely require amputation of R 3rd toe as well (? Vascular v Podiatry - prior digital amputation by Dr. Lafleur).
- Start ASA daily for now. Suspect that patient is supposed to be on some anticoagulant / antiplatelet regimen - though she denies this.
- Supportive care / pain control overnight.
Benign Hypertension
- Continue amlodipine with holding parameters. Adjust as needed.
ARETHA on CKD III
- SCr = 1.7 compared to known baseline of 1.4.
- IVFs overnight and follow labs / lytes for changes.
Anemia of Chronic Disease
- Stable. Hgb is at / near known baseline.
- Check iron studies and replace if indicated.
Hypothyroidism
- Continue current T4 replacement.
DVT prophylaxis: IV heparin infusion
Code Status: DNR
[2025-01-26 23:39] VITALS: BP 131/52
[2025-01-27] VITALS (7 sets, daily range): BP systolic 115–156; BP diastolic 61–75; BMI 26.4
[2025-01-27] MEDS: HEPARIN 4000 UNITS IV (02:06)
[2025-01-27] MEDS: NSS 1000 IV (02:07)
[2025-01-27] MEDS: ZOSYN 50 IV ×3 (02:10→13:47)
[2025-01-27] MEDS: HEPARIN 25000 UNITS/250 ML IV (02:12)
[2025-01-27 02:14] LABS: Hematocrit 30.8 % (37.0-47.0); Hemoglobin 10.4 g/dL (12.0-16.0); Mean Corp Hgb Conc. 33.8 g/dL (33.0-37.0); Mean Corpuscular Volume 99.7 fL (81.0-99.0); Platelet Count 300 10^3/uL (130-400); Red Cell Dist. Width 13.6 % (11.5-14.5)
[2025-01-27 02:35] LABS: APTT 37.2 Sec (23.4-35.0)
[2025-01-27 03:00] LABS: Iron 58 ug/dl (37-170); Total Iron Binding Capacity 201 ug/dl (265-497)
[2025-01-27] MEDS: NORCO 5/325 1 TABLET PO ×2 (03:03→21:01)
[2025-01-27] MEDS: SYNTHROID 125 MCG PO (07:36)
--- NOTE | 2025-01-27 08:18 | CON.VAS ---
Addendum entered and electronically signed by Christy Mccoy MD 01/27/25 11:50:
Agree with below. Patient with erythematous, painful R foot x several months. Now with necrotic tip to right toe. Complains of pain in R foot and diarrhea starting last night. She has no arteriogram images available of her RLE, but her arterial
duplex shows likely occlusions of all tibial vessels with distal reconstitution, similar to what was seen in her left side. Plan tentatively for a RLE agram Wednesday so long as diarrhea controlled. NPO after midnight Wednesday night please.
Original Note:
Consultation
Consultation Request
Date/Time Consultation Performed: 01/27/2025 at 8 AM
Performing Provider: Dr. Mccoy
Reason for Consultation: Necrotic third toe
Medical History
-
Chief Complaint: Necrotic third toe
History of Present Illness:
84-year-old female with past medical history significant for PAD, hypertension, hypothyroidism, CKD stage III, status post left below the knee popliteal to plantar artery bypass with vein graft and left distal SFA to above-knee popliteal artery
stenting with Dr. Murcia in September 2024 presented to the emergency room last night for right foot pain for several weeks. Patient admits to injuring her foot in October on a chair after which her right middle toe became painful and swollen. These symptoms
persisted and progressed since that time. As an outpatient she follows with Dr. Breen her photo print specialist who started her on antibiotics about 5 days ago. Patient noted no improvement at which time her photo print specialist advised her to go to the emergency
room for evaluation. Vascular consult for nonhealing toe wound.
Patient seen at bedside this a.m. Patient resting comfortably in bed. Her right middle toe is black and dry. She has some erythema from toes to ankle, mild edema. Faint Doppler DP and PT signals to the right foot. Excellent Doppler signal at
the left PT bypass. She denies pain at this current time while resting. She states she has significant pain in the toe with activity.
Past Medical History
Past Medical History: Other (PAD, hypertension, hypothyroidism, CKD stage III, anemia of chronic disease, RA)
Past Surgical History: Other (09/13/24-left POP to plantar artery bypass with stenting today SFA, 09/15/2024-left fifth toe and metatarsal head amputation, thyroidectomy, left LEROY)
Social History
Tobacco: Former Smoker
Alcohol: Occasional
Drug: None
Family History
Family History: Reviewed & Not Pertinent
Allergies / Home Medications
Allergy/AdvReac Type Severity Reaction Status Date / Time
baclofen Allergy Unknown Verified 01/26/25 15:25
Benzodiazepines Allergy Unknown Verified 01/26/25 15:25
diazepam (From Valium) Allergy Unknown Verified 01/26/25 15:25
duloxetine Allergy Unknown Verified 01/26/25 15:25
gabapentin Allergy Unknown Verified 01/26/25 15:25
meloxicam Allergy Anaphylaxis Verified 01/26/25 15:25
methotrexate Allergy Unknown Verified 01/26/25 15:25
pregabalin (From Lyrica) Allergy Unknown Verified 01/26/25 15:25
sulfamethoxazole (From Allergy Rash Verified 01/26/25 15:25
Bactrim)
trimethoprim (From Bactrim) Allergy Rash Verified 01/26/25 15:25
�Medication �Instructions �Recorded �Confirmed �Type
Prevagen 1 tab PO DAILY Supplement 08/31/24 09/13/24 History
amitriptyline 10 mg tablet 10 mg PO HS Sleep 08/31/24 09/13/24 History
amlodipine 5 mg tablet 5 mg PO DAILY Blood Pressure 08/31/24 01/26/25 History
cyanocobalamin (vitamin B-12) 1,000 mcg PO DAILY Supplement 08/31/24 09/13/24 History
1,000 mcg tablet (Vitamin B-12)
hydrocodone 5 mg-acetaminophen 325 1 tab PO Q6H PRN pain 08/31/24 01/26/25 History
mg tablet
levocetirizine 5 mg tablet (Xyzal) 5 mg PO HS Allergies 08/31/24 09/13/24 History
levothyroxine 125 mcg tablet 125 mcg PO DAILY Thyroid 08/31/24 01/26/25 History
lidocaine 1.8 % topical patch 1 patch topical DAILY PRN Pain 08/31/24 01/26/25 History
acetaminophen 650 mg 1,300 mg PO Q12H RA 09/12/24 09/13/24 History
tablet,extended release
mirabegron 25 mg tablet,extended 50 mg PO HS Urinary Issue 09/12/24 09/13/24 History
release 24 hr (Myrbetriq)
temazepam 30 mg capsule 30 mg PO HS PRN insomnia 09/12/24 09/13/24 History
clopidogrel 75 mg tablet 75 mg PO DAILY #90 tabs 09/19/24 Rx
docusate sodium 100 mg capsule 100 mg PO BIDPRN PRN constipation 09/19/24 Rx
#60 caps
rivaroxaban 2.5 mg tablet (Xarelto) 2.5 mg PO BID #180 tabs 09/19/24 Rx
ciprofloxacin HCl 500 mg tablet 500 mg PO BID 01/26/25 01/26/25 History
Review of Systems
-
History Source: Patient
All other systems: Negative unless noted
Constitutional: Reports No Symptoms
EENT: Reports No Symptoms
Respiratory: Reports No Symptoms
Cardiac: Reports No Symptoms
Abdomen/GI: Reports No Symptoms
: Reports No Symptoms
Musculoskeletal: Reports Muscle Stiffness and Edema
Skin: Reports Other (Right third toe wound)
Neurological: Reports No Symptoms
Physical Exam
Vital Signs
Temp Pulse Resp BP Pulse Ox
97.8 F 88 16 138/61 97
01/27/25 07:44 01/27/25 07:44 01/27/25 07:44 01/27/25 07:44 01/27/25 07:44
Lab Results
01/27/25 02:06
Physical Exam
General: No Apparent Distress
HEENT: Normocephalic and Atraumatic
Respiratory: Non Labored Respirations
Cardiac: Negative JVD
GI: Soft and Non Tender
Musculoskeletal: No Clubbing, No Cyanosis and Edema (Right foot slight)
Skin: Warm and Other (Erythema to right foot, dry necrotic third toe)
Neuro: Awake, Alert and Oriented
Psych: Calm
Pulses: Right Dorsalis Pedis: Doppler (Faint), Left Posterior Tibial: Doppler (Excellent) and Right Posterior Tibial: Doppler (Faint)
Assessment / Plan
-
84-year-old female status post left lower extremity revascularization with bypass and stenting with Dr. Murcia in September
Here now with dry necrotic right third toe, erythema
Plan:
Arterial ultrasound pending
Antibiotics
Right lower extremity arteriogram Wednesday, n.p.o. after midnight for Wednesday morning
Local wound care
[2025-01-27] MEDS: LOW STRENGTH ASPIRIN 81 MG PO (08:29)
[2025-01-27] MEDS: NORVASC 5 MG PO (08:33)
--- NOTE | 2025-01-27 08:35 | W.PN.HOSP.TC ---
Today's Communication/Plan
-
LR IV fluids
If stool studies are negative, then will start Imodium as needed
Arteriogram on Wednesday
Continue Heparin Drip
Assessment / Plan
Assessment / Plan
Physical Exam
General: Not in acute distress
HEENT: Moist mucous membranes
Respiratory: Clear to Auscultation Bilaterally
Cardiac: S1/S2 and Regular Rhythm
GI: Soft, Non Tender, Non Distended and Normal Bowel Sounds
Musculoskeletal: Other (Erythema and mild edema of the R forefoot and all toes. Pulses not appreciable on exam. R 3rd toe with necrotic change of distal tip.)
Neuro: AO x 3
Assessment/Plan
84 y/o female with past medical history significant for ASCVD/PAD, hypertension and hypothyroidism who presented to [facility] emergency room complaining of right foot pain x several weeks. Patient stated that her symptoms initially started in October 2024
when she banged her foot into a chair leg. Her symptoms had persisted / progressed since that time. She had been followed by her usual Physical Biochemist - Dr. Breen - who started her on ciprofloxacin about 4-5 days prior to presentation. She had noted no
improvement in her symptoms and on 01/25/25, Dr. Breen advised her to present to [facility] ED for further evaluation. At the time of admission, patient denied any systemic complaints including fevers / chills, N/V/D, etc.
Patient was last hospitalized at [facility] in September 2024 when she underwent revascularization of the LLE (Dr. Murcia) and amputation of the L 5th toe / MT head (Dr. Lafleur).
ASCVD / PAD
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
Post-Op Day 6 Bypass and SFA/pop stent
- Patient denied any anticoagulants or antiplatelet agents despite prior med list and history
- Vascular Surgery evaluation for additional recommendations / possible ischemic evaluation and intervention.
- Continue IV heparin infusion for now. IV abx coverage acutely.
- Follow pulse checks / vascular checks.
- Will likely require amputation of R 3rd toe as well (? Vascular v Podiatry - prior digital amputation by Dr. Lafleur).
- RLE agram on 01/29/25, NPO after midnight Wednesday (01/28/25) night
- Baby Aspirin was started on admission. Suspect that patient is supposed to be on some anticoagulant / antiplatelet regimen - though she denies this -- based on last discharge summary, should be on Clopidogrel 75 mg daily and Rivaroxaban 2.5 mg
BID -- spoke with vascular surgery Dr. Mccoy and Beatrice vascular [employer]ER, okay to change the Aspirin to Plavix
Non-Anion Gap Metabolic Acidosis
- Likely from Normal Saline IV fluids
- Switched to LR IV fluids
Diarrhea
- Suspected from Zosyn antibiotics
- Check stool studies
- If stool studies negative, then Imodium
- LR IV fluids
Benign Hypertension
- Continue amlodipine with holding parameters. Adjust as needed.
ARETHA on CKD III
- SCr = 1.7-->1.6 compared to known baseline of 1.4.
- Continue IV fluids
Anemia of Chronic Disease
- Stable. Hgb is at / near known baseline.
Hypothyroidism
- Continue current T4 replacement.
DVT prophylaxis: IV heparin infusion
Code Status: DNR
Anticipated Discharge: > 48 hours
Subjective/Interval History
-
Date of Service: January 27, 2025
Patient was seen and examined. She reported having episodes of diarrhea, denied any other complaints.
Objective Data
-
Labs:
Laboratory Results
01/27/25 01/27/25
02:06 08:00
WBC 8.6
Hgb 10.4 L
Hct 30.8 L
Plt Count 300
APTT 37.2 H Pending
Sodium Pending
Potassium Pending
Chloride Pending
Carbon Dioxide Pending
BUN Pending
Creatinine Pending
Glucose Pending
Calcium Pending
Vital Signs:
Vital Signs
Temp Pulse Resp BP Pulse Ox
97.8 F 88 16 138/61 97
01/27/25 07:44 01/27/25 07:44 01/27/25 07:44 01/27/25 07:44 01/27/25 07:44
[2025-01-27 08:52] LABS: Blood Urea Nitrogen 34 mg/dl (7-17); Calcium 8.1 mg/dl (8.4-10.2); Carbon Dioxide 21 mmol/L (22-30); Chloride 114 mmol/L (98-107); Estimated Creatinine Clearance 22 ml/min; Glucose 88 mg/dl (70-99); HDL Cholesterol 51 mg/dl; LDL Cholesterol, Calculated 60 mg/dl; Potassium 5.1 mmol/L (3.5-5.1); Sodium 141 mmol/L (135-145); Very Low Density Lipoprotein 12 mg/dl (0-30); eGFR 32.00
[2025-01-27 09:01] LABS: APTT 118.6 Sec (23.4-35.0)
[2025-01-27 10:46] LABS: Albumin 3.0 g/dl (3.5-5.0)
[2025-01-27] MEDS: DILAUDID 0.5 MG IV ×3 (11:44→23:02)
[2025-01-27] MEDS: NON-FORMULARY ITEM 1 PATCH TOPICAL (13:11)
[2025-01-27] MEDS: NSS IV (13:29)
[2025-01-27] MEDS: LR 1000 IV (13:48)
--- NOTE | 2025-01-27 16:31 | CM ---
Alert awake oriented patient who lives alone in an apartment with 0 steps to enter. She is independent in activates of daily living.She does drive .She used a rollator.
NO VN in past . [facility] hx
Pharmacy [facility]
PCP Dr Thapa
PLAN will need PT OT for dc planning.
[2025-01-27 16:48] LABS: APTT 62.5 Sec (23.4-35.0)
[2025-01-27] MEDS: REMOVE LIDOCAINE PATCH 1 PATCH REMOVE ×2 (21:00)
[2025-01-27] MEDS: ZOSYN IV (21:01)
[2025-01-27 23:44] LABS: APTT 127.0 Sec (23.4-35.0)
[2025-01-28] MEDS: ZOSYN IV ×5 (02:09→20:53)
[2025-01-28 03:00] VITALS: BP 151/66
[2025-01-28 04:18] VITALS: BMI 28.0
[2025-01-28] MEDS: DILAUDID 0.5 MG IV ×4 (04:22→21:28)
[2025-01-28] MEDS: SYNTHROID 125 MCG PO (06:39)
[2025-01-28 06:43] LABS: Hematocrit 27.9 % (37.0-47.0); Hemoglobin 9.3 g/dL (12.0-16.0); Mean Corp Hgb Conc. 33.3 g/dL (33.0-37.0); Mean Corpuscular Volume 100.0 fL (81.0-99.0); Platelet Count 251 10^3/uL (130-400); Red Cell Dist. Width 13.6 % (11.5-14.5)
[2025-01-28 06:53] LABS: APTT 104.5 Sec (23.4-35.0)
[2025-01-28 07:00] VITALS: BP 149/63
[2025-01-28 07:50] LABS: Blood Urea Nitrogen 31 mg/dl (7-17); Calcium 8.0 mg/dl (8.4-10.2); Carbon Dioxide 22 mmol/L (22-30); Chloride 114 mmol/L (98-107); Estimated Creatinine Clearance 26 ml/min; Glucose 85 mg/dl (70-99); Magnesium 2.1 mg/dl (1.6-2.3); Potassium 4.5 mmol/L (3.5-5.1); Sodium 140 mmol/L (135-145); eGFR 32.00
[2025-01-28] MEDS: HEPARIN 25000 UNITS/250 ML IV (08:43)
[2025-01-28] MEDS: PLAVIX 75 MG PO (09:05)
[2025-01-28] MEDS: NON-FORMULARY ITEM 1 PATCH TOPICAL (09:05)
[2025-01-28] MEDS: NORVASC 5 MG PO (09:05)
[2025-01-28] MEDS: LR 1000 IV (09:07)
--- NOTE | 2025-01-28 09:12 | W.PN.HOSP.TC ---
Today's Communication/Plan
-
NPO after midnight for RLE arteriogram with vascular surgery tomorrow
Continue Heparin Drip
Will need to convince the patient to take the Zosyn, otherwise she is at high risk for worsening right foot infection, septic shock or worse
Imodium for diarrhea
Please see below
Assessment / Plan
Assessment / Plan
Physical Exam
General: Not in acute distress
HEENT: Moist mucous membranes
Respiratory: Clear to Auscultation Bilaterally
Cardiac: S1/S2 and Regular Rhythm
GI: Soft, Non Tender, Non Distended and Normal Bowel Sounds
Musculoskeletal: Other (Erythema and mild edema of the R forefoot and all toes. Pulses not appreciable on exam. R 3rd toe with necrotic change of distal tip.)
Neuro: AO x 3
Assessment/Plan
84 y/o female with past medical history significant for ASCVD/PAD, hypertension and hypothyroidism who presented to [facility] emergency room complaining of right foot pain x several weeks. Patient stated that her symptoms initially started in October 2024
when she banged her foot into a chair leg. Her symptoms had persisted / progressed since that time. She had been followed by her usual Collection Agent - Dr. Breen - who started her on ciprofloxacin about 4-5 days prior to presentation. She had noted no
improvement in her symptoms and on 01/25/25, Dr. Breen advised her to present to [facility] ED for further evaluation. At the time of admission, patient denied any systemic complaints including fevers / chills, N/V/D, etc.
Patient was last hospitalized at [facility] in September 2024 when she underwent revascularization of the LLE (Dr. Murcia) and amputation of the L 5th toe / MT head (Dr. Lafleur).
ASCVD / PAD
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
Post-Op Day 6 Bypass and SFA/pop stent
- Patient denied any anticoagulants or antiplatelet agents despite prior med list and history
- Vascular Surgery evaluation for additional recommendations / possible ischemic evaluation and intervention.
- Continue IV heparin infusion for now.
- Continue IV antibiotics coverage with Zosyn given right foot erythema
- Follow pulse checks / vascular checks.
- Will likely require amputation of R 3rd toe as well (? Vascular v Podiatry - prior digital amputation by Dr. Lafleur).
- RLE agram on 01/29/25, NPO after midnight Wednesday (01/28/25) night
- Baby Aspirin was started on admission. Suspect that patient is supposed to be on some anticoagulant / antiplatelet regimen - though she denied this -- based on last discharge summary, should be on Clopidogrel 75 mg daily and Rivaroxaban 2.5 mg
BID -- spoke with vascular surgery Dr. Mccoy and Beatrice vascular TEXTILE MACHINERY SALES REPRESENTATIVE, okay to change the Aspirin to Plavix -- continue Heparin Drip in lieu of Rivaroxaban for now
Non-Anion Gap Metabolic Acidosis
- Likely from Normal Saline IV fluids
- Switched to LR IV fluids with resulting improvement
Diarrhea
C. Diff Antigen Positive, Toxin Negative
- Suspected from Zosyn antibiotics
- Stool studies showed C. Diff antigen positive, toxin negative -- I confirmed with ID and infection control nurse that no precautions are needed for this
- Follow stool studies
- Discussed (but not formal consult) the above result with ID who recommended PO Vancomycin 125 PO Q12H while IV antibiotics are given for patient's right foot infection and also Imodium for her diarrhea
- I discussed case with on-call store hand (not formal GI consult) and they mentioned Imodium is okay to give (for symptomatic relief) as long as they are receiving treatment already for c.diff (the above PO Vanco regimen as recommended by
ID) and the c.diff is not severe/fulminant
- LR IV fluids
Benign Hypertension
- Continue amlodipine with holding parameters. Adjust as needed.
ARETHA on CKD III
- SCr = 1.7-->1.6 compared to known baseline of 1.4.
- Continue IV fluids
Anemia of Chronic Disease
- Stable. Hgb is at / near known baseline.
Hypothyroidism
- Continue current T4 replacement.
DVT prophylaxis: IV heparin infusion
Code Status: DNR
Anticipated Discharge: > 48 hours
Subjective/Interval History
-
Date of Service: January 28, 2025
Patient was seen and examined. She had continued diarrhea, reportedly there was a little blood from the sore skin near the anus, and she requested Imodium. She refused antibiotics given her diarrhea.
Objective Data
-
Labs:
Laboratory Results
01/27/25 01/28/25 01/28/25
23:19 06:23 13:00
WBC 6.6
Hgb 9.3 L
Hct 27.9 L
Plt Count 251
APTT 127.0 H 104.5 H Pending
Sodium 140
Potassium 4.5
Chloride 114 H
Carbon Dioxide 22
BUN 31 H
Creatinine 1.6 H
Glucose 85
Calcium 8.0 L
Vital Signs:
Vital Signs
Temp Pulse Resp BP Pulse Ox
98.4 F 84 12 149/63 96
01/28/25 07:00 01/28/25 07:00 01/28/25 07:00 01/28/25 07:00 01/28/25 07:00
I&O
01/27/25 01/28/25 01/29/25
06:59 06:59 06:59
Intake Total 3170 / 3170
Output Total 500 / 500
Balance 2670 / 2670
[2025-01-28 11:00] VITALS: BP 128/53
[2025-01-28] MEDS: FIRVANQ 125 MG PO ×2 (11:36→21:28)
[2025-01-28] MEDS: IMODIUM 2 MG PO ×2 (11:37→21:06)
[2025-01-28 13:09] LABS: APTT 71.8 Sec (23.4-35.0)
[2025-01-28 15:00] VITALS: BP 146/57
--- NOTE | 2025-01-28 19:04 | PTCARENOTE ---
Patient stool results showed + C diff antigen and negative for C diff toxin. PT having several episodes of loose bowels during shift, it times incontinent. Imodium ordered and administered with + effects for a few hours. Communicated with MD and ID
regarding if patient needs a private room, patient does not need a private room/isolation precautions. Pt adamantly refused Zosyn, even after patient spoke with MD regarding importance of Antibiotics. PRN Dilaudid given x2 during shift for R
foot/toe ' burning sensation' with some + effects. Continues on Heparin drip and LR. Call ford within reach.
[2025-01-28 19:22] VITALS: BP 135/58
[2025-01-28] MEDS: REMOVE LIDOCAINE PATCH 1 PATCH REMOVE (20:52)
[2025-01-28 21:02] LABS: APTT 107.8 Sec (23.4-35.0)
[2025-01-28 23:05] VITALS: BP 143/66
[2025-01-29] VITALS (7 sets, daily range): BP systolic 127–146; BP diastolic 57–67; PULSE 95; BMI 27.3
[2025-01-29] MEDS: LR 1000 IV ×2 (01:29→11:24)
[2025-01-29] MEDS: ZOSYN IV ×4 (01:31→19:57)
[2025-01-29 03:21] LABS: Hematocrit 31.7 % (37.0-47.0); Hemoglobin 10.1 g/dL (12.0-16.0); Mean Corp Hgb Conc. 31.9 g/dL (33.0-37.0); Mean Corpuscular Volume 103.3 fL (81.0-99.0); Platelet Count 267 10^3/uL (130-400); Red Cell Dist. Width 14.0 % (11.5-14.5)
[2025-01-29 03:33] LABS: APTT 115.5 Sec (23.4-35.0)
[2025-01-29 03:45] LABS: Blood Urea Nitrogen 30 mg/dl (7-17); Calcium 8.1 mg/dl (8.4-10.2); Carbon Dioxide 23 mmol/L (22-30); Chloride 113 mmol/L (98-107); Estimated Creatinine Clearance 29 ml/min; Glucose 101 mg/dl (70-99); Potassium 4.5 mmol/L (3.5-5.1); Sodium 140 mmol/L (135-145); eGFR 37.56
[2025-01-29] MEDS: SYNTHROID 125 MCG PO (06:29)
--- NOTE | 2025-01-29 07:59 | W.PN.HOSP.TC ---
Today's Communication/Plan
-
Monitor patient closely for any signs or symptoms of infection, and if so patient will definitely need antibiotics -- patient has been refusing IV antibiotics
Monitor for any new GI symptoms while on Imodium
Continue Oral Vancomycin for C. diff prophylaxis
Assessment / Plan
Assessment / Plan
Physical Exam
General: Not in acute distress
HEENT: Moist mucous membranes
Respiratory: Clear to Auscultation Bilaterally
Cardiac: S1/S2 and Regular Rhythm
GI: Soft, Non Tender, Non Distended and Normal Bowel Sounds
Musculoskeletal: Other (Erythema and mild edema of the R forefoot and all toes. Pulses not appreciable on exam. R 3rd toe with necrotic change of distal tip.)
Neuro: AO x 3
Assessment/Plan
84 y/o female with past medical history significant for ASCVD/PAD, hypertension and hypothyroidism who presented to [facility] emergency room complaining of right foot pain x several weeks. Patient stated that her symptoms initially started in October 2024
when she banged her foot into a chair leg. Her symptoms had persisted / progressed since that time. She had been followed by her usual Fourth Mate - Dr. Breen - who started her on ciprofloxacin about 4-5 days prior to presentation. She had noted no
improvement in her symptoms and on 01/25/25, Dr. Breen advised her to present to [facility] ED for further evaluation. At the time of admission, patient denied any systemic complaints including fevers / chills, N/V/D, etc.
Patient was last hospitalized at [facility] in September 2024 when she underwent revascularization of the LLE (Dr. Murcia) and amputation of the L 5th toe / MT head (Dr. Lafleur).
ASCVD / PAD
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
Post-Op Day 6 Bypass and SFA/pop stent
- Patient denied any anticoagulants or antiplatelet agents despite prior med list and history
- Vascular Surgery evaluation for additional recommendations / possible ischemic evaluation and intervention.
- Continue IV heparin infusion for now.
- Continue IV antibiotics coverage with Zosyn given right foot erythema -- although patient has been refusing antibiotics, she appears to be doing okay without antibiotics right now
- Monitor very closely for any worsening signs or symptoms of infection, including in the right foot
- Follow pulse checks / vascular checks.
- Will likely require amputation of R 3rd toe as well (? Vascular v Podiatry - prior digital amputation by Dr. Lafleur).
- KIRTI zamora on 01/31/25 due to vascular surgeon's very busy caseload -- patient is in agreement
- Baby Aspirin was started on admission. Suspect that patient is supposed to be on some anticoagulant / antiplatelet regimen - though she denied this -- based on last discharge summary, should be on Clopidogrel 75 mg daily
and Rivaroxaban 2.5 mg BID -- spoke with vascular surgery Dr. Mccoy and Beatrice vascular TRAM INSPECTOR, okay to change the Aspirin to Plavix -- continue Heparin Drip in lieu of Rivaroxaban for now, and continue Plavix 75 mg daily
Non-Anion Gap Metabolic Acidosis
- RESOLVED
- Likely from Normal Saline IV fluids
- Switched to LR IV fluids with resulting improvement
Diarrhea
C. Diff Antigen Positive, Toxin Negative
- Suspected from Zosyn antibiotics -- patient has been refusing IV antibiotics because of diarrhea
- Stool studies showed C. Diff antigen positive, toxin negative -- I confirmed with ID and infection control nurse that no precautions are needed for this
- Follow stool studies
- Discussed (but not formal consult) the above result with ID who recommended PO Vancomycin 125 PO Q12H while IV antibiotics are given for patient's right foot infection and also Imodium for her diarrhea
- I discussed case with on-call credit correspondence clerk (not formal GI consult) and they mentioned Imodium is okay to give (for symptomatic relief) as long as they are receiving treatment already for c.diff (the above PO Vanco regimen as recommended by
ID) and the c.diff is not severe/fulminant
- LR IV fluids -- can finish current bag and then monitor off IV fluids
Benign Hypertension
- Continue amlodipine with holding parameters. Adjust as needed.
ARETHA on CKD III
- SCr = 1.7-->1.6-->1.4 compared to known baseline of 1.4.
- Continue IV fluids
Anemia of Chronic Disease
- Stable. Hgb is at / near known baseline.
Hypothyroidism
- Continue current T4 replacement.
DVT Prophylaxis: IV heparin infusion
Code Status: DNR
Anticipated Discharge: > 48 hours
Subjective/Interval History
-
Date of Service: January 29, 2025
Patient was seen and examined. She reported that her diarrhea has resolved. She denied abdominal pain or any other new symptoms or complaints.
Objective Data
-
Labs:
Laboratory Results
01/28/25 01/29/25 01/29/25
20:43 03:00 10:00
WBC 6.7
Hgb 10.1 L
Hct 31.7 L
Plt Count 267
APTT 107.8 H 115.5 H Pending
Sodium 140
Potassium 4.5
Chloride 113 H
Carbon Dioxide 23
BUN 30 H
Creatinine 1.4 H
Glucose 101 H
Calcium 8.1 L
Vital Signs:
Vital Signs
Temp Pulse Resp BP Pulse Ox
98.2 F 81 16 146/61 98
01/29/25 03:05 01/29/25 03:05 01/29/25 03:05 01/29/25 03:05 01/29/25 03:05
I&O
01/28/25 01/29/25 01/30/25
06:59 06:59 06:59
Intake Total 3170 / 3170 2340 / 2340
Output Total 500 / 500
Balance 2670 / 2670 2340 / 2340
[2025-01-29] MEDS: NON-FORMULARY ITEM 1 PATCH TOPICAL (08:26)
[2025-01-29] MEDS: NORVASC 5 MG PO (08:26)
[2025-01-29] MEDS: PLAVIX 75 MG PO (08:27)
[2025-01-29] MEDS: NORCO 5/325 1 TABLET PO ×2 (08:31→16:46)
[2025-01-29 08:49] LABS: Albumin 3.0 g/dl (3.5-5.0)
--- NOTE | 2025-01-29 10:10 | W.PN.UPDATE ---
Update Note
Progress Note Update
Due to increased emergent/urgent case load will tentatively move patient's RLE angiogram to Wednesday01/31/2025, patient updated at bedside and agreeable to plan. Attending Dr. Casey Murcia aware and agrees to plan.
--- NOTE | 2025-01-29 10:32 | CM ---
Patient seen at beside
per note RLE angiogram on Wednesday01/31/2025
PT to eval-pending
PLAN: await PT evgeoffrey, CM to follow for discharge planning/needs
[2025-01-29 10:52] LABS: APTT 100.6 Sec (23.4-35.0)
[2025-01-29] MEDS: FIRVANQ 125 MG PO ×2 (11:24→22:12)
[2025-01-29] MEDS: DILAUDID 0.5 MG IV ×2 (11:25→19:59)
[2025-01-29] MEDS: IMODIUM 2 MG PO ×2 (12:42→20:03)
[2025-01-29] MEDS: HEPARIN 25000 UNITS/250 ML IV (14:38)
[2025-01-29 17:48] LABS: APTT 87.1 Sec (23.4-35.0)
[2025-01-29] MEDS: REMOVE LIDOCAINE PATCH REMOVE (19:56)
[2025-01-29] MEDS: MELATONIN 5 MG PO (22:12)
[2025-01-30] MEDS: LR 1000 IV ×3 (00:16→21:41)
[2025-01-30] MEDS: ZOSYN IV ×4 (01:17→20:00)
[2025-01-30] MEDS: DILAUDID 0.5 MG IV ×4 (01:56→19:54)
[2025-01-30 03:55] VITALS: BP 153/54
[2025-01-30 04:38] VITALS: BMI 27.9
[2025-01-30] MEDS: SYNTHROID 125 MCG PO (05:36)
[2025-01-30] MEDS: NORCO 5/325 1 TABLET PO (05:36)
[2025-01-30] MEDS: IMODIUM 2 MG PO ×5 (05:56→21:39)
[2025-01-30 06:43] LABS: Hematocrit 27.6 % (37.0-47.0); Hemoglobin 9.3 g/dL (12.0-16.0); Mean Corp Hgb Conc. 33.7 g/dL (33.0-37.0); Mean Corpuscular Volume 99.6 fL (81.0-99.0); Platelet Count 252 10^3/uL (130-400); Red Cell Dist. Width 13.6 % (11.5-14.5)
[2025-01-30 06:57] LABS: APTT 85.7 Sec (23.4-35.0)
[2025-01-30 07:13] LABS: Blood Urea Nitrogen 26 mg/dl (7-17); Calcium 8.4 mg/dl (8.4-10.2); Carbon Dioxide 24 mmol/L (22-30); Chloride 112 mmol/L (98-107); Estimated Creatinine Clearance 27 ml/min; Glucose 101 mg/dl (70-99); Potassium 4.5 mmol/L (3.5-5.1); Sodium 136 mmol/L (135-145); eGFR 34.58
[2025-01-30 07:34] VITALS: BP 134/69
--- NOTE | 2025-01-30 08:15 | W.PN.HOSP.TC ---
Today's Communication/Plan
-
NPO after midnight for RLE angiogram tomorrow
Patient continues to refuse IV antibiotics but from infection standpoint seems to be doing okay clinically right foot erythema is stable, WBC count normal, no fever
GI evaluation for persistent diarrhea despite Imodium. Appreciate GI.
Assessment / Plan
Assessment / Plan
Physical Exam
General: Not in acute distress
HEENT: Moist mucous membranes
Respiratory: Clear to Auscultation Bilaterally
Cardiac: S1/S2 and Regular Rhythm
GI: Soft, Non Tender, Non Distended and Normal Bowel Sounds
Musculoskeletal: Other (Erythema and mild edema of the R forefoot and all toes. Pulses not appreciable on exam. R 3rd toe with necrotic change of distal tip.)
Neuro: AO x 3
Assessment/Plan
84 y/o female with past medical history significant for ASCVD/PAD, hypertension and hypothyroidism who presented to [facility] emergency room complaining of right foot pain x several weeks. Patient stated that her symptoms initially started in October 2024
when she banged her foot into a chair leg. Her symptoms had persisted / progressed since that time. She had been followed by her usual Scalper Operator - Dr. Breen - who started her on ciprofloxacin about 4-5 days prior to presentation. She had noted no
improvement in her symptoms and on 01/25/25, Dr. Breen advised her to present to [facility] ED for further evaluation. At the time of admission, patient denied any systemic complaints including fevers / chills, N/V/D, etc.
Patient was last hospitalized at [facility] in September 2024 when she underwent revascularization of the LLE (Dr. Murcia) and amputation of the L 5th toe / MT head (Dr. Lafleur).
ASCVD / PAD
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
Post-Op Day 6 Bypass and SFA/pop stent
- Patient denied any anticoagulants or antiplatelet agents despite prior med list and history
- Vascular Surgery evaluation for additional recommendations / possible ischemic evaluation and intervention.
- Continue IV heparin infusion for now.
- Needs IV antibiotics coverage with Zosyn given right foot erythema -- although patient has been refusing antibiotics, she appears to be doing okay without antibiotics right now
- Monitor very closely for any worsening signs or symptoms of infection, including in the right foot
- Follow pulse checks / vascular checks.
- Will likely require amputation of R 3rd toe as well (? Vascular v Podiatry - prior digital amputation by Dr. Lafleur).
- RLE almitaam on 01/31/25 due to vascular surgeon's very busy caseload -- patient is in agreement
- Baby Aspirin was started on admission. Suspect that patient is supposed to be on some anticoagulant / antiplatelet regimen - though she denied this -- based on last discharge summary, should be on Clopidogrel 75 mg daily
and Rivaroxaban 2.5 mg BID -- spoke with vascular surgery Dr. Mccoy and Beatrice vascular GLOBAL COMPENSATION MANAGER, okay to change the Aspirin to Plavix -- continue Heparin Drip in lieu of Rivaroxaban for now, and continue Plavix 75 mg daily
Non-Anion Gap Metabolic Acidosis
- RESOLVED
- Likely from Normal Saline IV fluids
- Switched to LR IV fluids with resulting improvement
Diarrhea
C. Diff Antigen Positive, Toxin Negative
- Suspected from Zosyn antibiotics -- patient has been refusing IV antibiotics because of diarrhea
- Stool studies showed C. Diff antigen positive, toxin negative -- I confirmed with ID and infection control nurse that no precautions are needed for this
- Stool studies negative except C. Diff antigen positive, toxin negative
- Discussed (but not formal consult) the above result with ID who recommended PO Vancomycin 125 PO Q12H while IV antibiotics are given for patient's right foot infection and also Imodium for her diarrhea
- GI consulted given persistent watery diarrhea despite Imodium -- GI thinks this may very well be incontinence in setting of rectal mass -- CT imaging is planned -- no colonoscopy right now
Benign Hypertension
- Continue amlodipine with holding parameters. Adjust as needed.
ARETHA on CKD III
- SCr = 1.7-->1.6-->1.4-->1.5 compared to known baseline of 1.4.
Anemia of Chronic Disease
- Stable. Hgb is at / near known baseline.
Hypothyroidism
- Continue current T4 replacement.
DVT Prophylaxis: IV heparin infusion
Code Status: DNR
Anticipated Discharge: > 48 hours
Subjective/Interval History
-
Date of Service: January 30, 2025
Patient was seen and examined. She reported continued diarrhea despite Imodium, she denied any other new symptoms or complaints.
Objective Data
-
Labs:
Laboratory Results
01/30/25
06:26
WBC 6.0
Hgb 9.3 L
Hct 27.6 L
Plt Count 252
APTT 85.7 H
Sodium 136
Potassium 4.5
Chloride 112 H
Carbon Dioxide 24
BUN 26 H
Creatinine 1.5 H
Glucose 101 H
Calcium 8.4
Vital Signs:
Vital Signs
Temp Pulse Resp BP Pulse Ox
98.6 F 80 16 134/69 92
01/30/25 07:34 01/30/25 07:34 01/30/25 07:34 01/30/25 07:34 01/30/25 07:34
I&O
01/29/25 01/30/25 01/31/25
06:59 06:59 06:59
Intake Total 2340 / 2340 1650 / 1650
Balance 2340 / 2340 1650 / 1650
[2025-01-30] MEDS: NORVASC 5 MG PO (08:43)
[2025-01-30] MEDS: PLAVIX 75 MG PO (08:43)
[2025-01-30] MEDS: FIRVANQ 125 MG PO ×2 (08:44→21:41)
[2025-01-30] MEDS: NON-FORMULARY ITEM 1 PATCH TOPICAL (08:44)
[2025-01-30 11:40] VITALS: BP 136/66
--- NOTE | 2025-01-30 13:23 | CM ---
Patient seen at bedside
RLE angiogram to Wednesday01/31/2025
PT rec Home Health
options reviewed, prefer [facility]
referral placed in [facility]
PLAN: home with [facility] when stable
[facility] fax #: [phone]
--- NOTE | 2025-01-30 15:20 | CON.GI ---
Addendum entered and electronically signed by Brea Fernandez DO 01/30/25 17:21:
The patient was seen and examined by me independently in collaboration with the nurse practitioner.
Past medical history/social history/medications/allergies/family history reviewed.
Lab data and imaging data reviewed.
Sharon Hager is an 84 y.o. female with pmhx PAD, HTN, hypothyroidism, CKD Stage III, hx below the knee popliteal to plantar artery bypass wiht vein graft and left distal SFA to above knee popliteal artery stenting with Dr. Murcia 09/2024 admitted
necrotic toe, planning for RLE angiogram tomorrow. GI consulted for 5 days of diarrhea. Workup with stool studies with positive c.diff antigen, toxin negative. She was initially on zosyn upon arrival, felt this caused her diarrhea, so refused PO
vanc that was prescribed. On evaluation, her diarrhea is not true diarrhea but actually incontinence. No history of irregular bowels or incontinence in the past. No prior CRC screening.
On rectal exam performed by GI STATISTICAL GENETICIST, Chiquita Simmons, she was suspicious for possible rectal mas. On my rectal exam, I did not appreciate a rectal mass, however, her fingers may be slightly longer. This of course is not a diagnostic exam, but certainly
need more objective testing to work this up, as this could explain her symptoms. I cannot say that my rectal exam is definitive for no rectal mass. She is on plavix and heparin right now, planning for vascular intervention tomorrow.
I feel her critical limb ischemia is the priority and should proceed as planned. To begin her workup, I would recommend imaging, either CT A/P or MRI pelvis. Depending on findings, we can coordinate how endoscopically visualize this area.
Plan discussed with primary team and vascular surgery.
Original Note:
Consultation
-
Date/Time Consultation Requested: 01/30/25 1330
Date/Time Consultation Performed: 01/30/25 1520
Requesting Provider: Vivek Wilson MD
Performing Provider: JANETT Johnson, Charity Fernandez DO
Reason for Consultation: diarrhea
Medical History
Chief Complaint / HPI
Chief Complaint: diarrhea
History of Present Illness:
Pt is a 84yo presents with HX ASCVD, PAD on chronic Plavix with( prior left popiteal/plantar artery bypass, angio, stent to SFA then toe amp of 5 th toe amp and metatarsal head 09/2024) , CKD, anemia of chronic disease, RA, hypothyroidism,
thyroidectomy, HTN with admission 01/26 with increased pain in right third toe with plan per vascular for RLE angio Wednesday but has complaints of diarrhea and asked to eval. Stool cx 01/27 neg and c-diff ag + tox neg. Pt currently on heparin gtt,
Plavix along with PO vanco and Zosyn (pt has refused since 01/27)
In review with patient she admits to regular stools with BM every several days. Since admission she now noted with diarrhea but in review with staff concern for incontinence of small amount of brown stool with mucous. She denies odynophagia,
dysphagia, GERD, nausea, vomiting, abdominal pain, blood or black in stools. No hx EGD or colonoscopy in past. no recent travel, abx or sick contacts.
Past Medical History
Past Medical History: HTN, Hypothyroidism and Other (ASCVD, PAD, CKD, anemia of chronic disease, RA)
Past Surgical History: Orthopedic (hand surgery ), Tonsilectomy and Other (09/13/24: Left popliteal to plantar artery bypass. Balloon angioplasty / stent to L distal SFA, 09/15/24: Amputation of L 5th toe and metatarsal head, thyroidectomy)
Social History
Tobacco: Former Smoker
Alcohol: None
Drug: None
Living: Alone
Employment: Retired
Family History
Family History: Other (no family hx colon Ca or GI problems)
Allergies / Home Medications
Allergy/AdvReac Type Severity Reaction Status Date / Time
baclofen Allergy Unknown Verified 01/26/25 15:25
Benzodiazepines Allergy Unknown Verified 01/26/25 15:25
diazepam (From Valium) Allergy Unknown Verified 01/26/25 15:25
duloxetine Allergy Unknown Verified 01/26/25 15:25
gabapentin Allergy Unknown Verified 01/26/25 15:25
meloxicam Allergy Anaphylaxis Verified 01/26/25 15:25
methotrexate Allergy Unknown Verified 01/26/25 15:25
pregabalin (From Lyrica) Allergy Unknown Verified 01/26/25 15:25
sulfamethoxazole (From Allergy Rash Verified 01/26/25 15:25
Bactrim)
trimethoprim (From Bactrim) Allergy Rash Verified 01/26/25 15:25
�Medication �Instructions �Recorded
Prevagen 1 tab PO DAILY Supplement 08/31/24
amitriptyline 10 mg tablet 10 mg PO HS Sleep 08/31/24
amlodipine 5 mg tablet 5 mg PO DAILY Blood Pressure 08/31/24
cyanocobalamin (vitamin B-12) 1,000 mcg PO DAILY Supplement 08/31/24
1,000 mcg tablet (Vitamin B-12)
hydrocodone 5 mg-acetaminophen 325 1 tab PO Q6H PRN pain 08/31/24
mg tablet
levocetirizine 5 mg tablet (Xyzal) 5 mg PO HS Allergies 08/31/24
levothyroxine 125 mcg tablet 125 mcg PO DAILY Thyroid 08/31/24
lidocaine 1.8 % topical patch 1 patch topical DAILY PRN Pain 08/31/24
acetaminophen 650 mg 1,300 mg PO Q12H RA 09/12/24
tablet,extended release
mirabegron 25 mg tablet,extended 50 mg PO HS Urinary Issue 09/12/24
release 24 hr (Myrbetriq)
temazepam 30 mg capsule 30 mg PO HS PRN insomnia 09/12/24
clopidogrel 75 mg tablet 75 mg PO DAILY #90 tabs 09/19/24
docusate sodium 100 mg capsule 100 mg PO BIDPRN PRN constipation 09/19/24
#60 caps
rivaroxaban 2.5 mg tablet (Xarelto) 2.5 mg PO BID #180 tabs 09/19/24
ciprofloxacin HCl 500 mg tablet 500 mg PO BID 01/26/25
Review of Systems
-
History Source: Patient
Constitutional: Reports No Symptoms
EENT: Reports No Symptoms
Respiratory: Reports No Symptoms
Abdomen/GI: Reports Diarrhea and Other (incontinence of stool mucousy brown stool heme neg with concern for irregularity at tip of finger )
: Reports No Symptoms
Musculoskeletal: Reports Other (left toe redness and pain )
Skin: Reports No Symptoms
Neurological: Reports No Symptoms
Endocrine: Reports No Symptoms
Hematologic/Lymphatic: Reports No Symptoms
Vital Signs
Temp Pulse Resp BP Pulse Ox
98.3 F 79 16 136/66 95
01/30/25 11:40 01/30/25 11:40 01/30/25 11:40 01/30/25 11:40 01/30/25 11:40
Physical Exam
Exam
General: Well Developed, Well Nourished and No Apparent Distress
HEENT: Normocephalic and Anicteric
Respiratory: Clear
Cardiac: Regular Rhythm
GI: Soft, Non Tender and Non Distended
Rectal: Other (brown mucously stool small volume with slight form== irregularity at tip of finger on exam )
Musculoskeletal: No Clubbing and No Cyanosis
Skin: Warm
Neuro: Awake, Alert and AO x 3
Psych: Calm
Results
WBC 6.0 10^3/uL (4.8-10.8) 01/30/25 06:26
Hgb 9.3 g/dL (12.0-16.0) L 01/30/25 06:26
Hct 27.6 % (37.0-47.0) L 01/30/25 06:26
MCV 99.6 fL (81.0-99.0) H 01/30/25 06:26
Plt Count 252 10^3/uL (130-400) 01/30/25 06:26
Absolute Neuts (auto) 6.2 10^3/uL (1.4-6.5) 01/26/25 15:45
APTT 85.7 Sec (23.4-35.0) H 01/30/25 06:26
Sodium 136 mmol/L (135-145) 01/30/25 06:26
Potassium 4.5 mmol/L (3.5-5.1) 01/30/25 06:26
Chloride 112 mmol/L (98-107) H 01/30/25 06:26
Carbon Dioxide 24 mmol/L (22-30) 01/30/25 06:26
BUN 26 mg/dl (7-17) H 01/30/25 06:26
Creatinine 1.5 mg/dL (0.6-1.0) H 01/30/25 06:
Calcium 8.4 mg/dl (8.4-10.2) 01/30/25 06:26
Total Bilirubin 0.4 mg/dl (0.2-1.3) 01/26/25 15:45
AST 20 U/L (14-36) 01/26/25 15:45
ALT 21 U/L (0-35) 01/26/25 15:45
Alkaline Phosphatase 85 U/L (38-126) 01/26/25 15:45
Diagnostic Image Results:
no abdominal imaging
Prior GI Procedures:
EGD: none
Colonoscopy: none
Assessment / Plan
-
Pt is a 84yo presents with HX ASCVD, PAD on chronic Plavix with( prior left popiteal/plantar artery bypass, angio, stent to SFA then toe amp of 5 th toe amp and metatarsal head 09/2024) , CKD, anemia of chronic disease, RA, hypothyroidism,
thyroidectomy, HTN with admission 01/26 with increased pain in right third toe with plan per vascular for RLE angio Wednesday but has complaints of diarrhea and asked to eval. Stool cx 01/27 neg and c-diff ag + tox neg. Pt currently on heparin gtt,
Plavix along with PO vanco and Zosyn (pt has refused since 01/27). In review with patient she admits to regular stools with BM every several days. Since admission she now noted with diarrhea but in review with staff concern for incontinence of
small amount of brown stool with mucous. No hx EGD or colonoscopy in past. no recent travel, abx or sick contacts.
-incontinence with small amounts of brown mucosa stool
-anemia
-c-diff ag + tox neg
-concern for irregularity on rectal exam at tip of finger
-PAD with concern for chronic limb ischemia RLQ with toe gangrene
other med problems:
ASCVD,hx prior left popiteal/plantar artery bypass, angio, stent to SFA then toe amp of 5 th toe amp and metatarsal head 09/2024 , CKD, anemia of chronic disease, RA, hypothyroidism, thyroidectomy, HTN
PLAN:
etiology of diarrhea with incontinence of small amount - related to concern for irregularity of rectal exam ( ? mass) recent abx use, c-diff with ag + tox neg vs other
in review with staff not large volume diarrhea but incontinence of stools
I completed rectal exam with concern for irregularity at tip of finger Dr. Fernandez repeated rectal without abnormality
will need to decide on work up but with critical limb ischemia may need vascular procedure-- Plan to review with patient is AM with GI and vascular and see how to proceed next
Zosyn remains on hold as pt declining
remain on Plavix and heparin
remains on Vanco with ag + tox neg trend hbg
discussed with Dr. Murcia, Dr. Fernandez and Dr. Wilson
updated nurse on plan
-
-
Thank you for consultation and allowing me to participate in the patient's care. Please call the sanitation worker cleaning machinery GI physician during the after hours with any questions or concerns.
[2025-01-30 16:03] VITALS: BP 128/62
[2025-01-30 17:09] LABS: Iron 74 ug/dl (37-170)
[2025-01-30 17:18] LABS: Total Iron Binding Capacity 176 ug/dl (265-497)
[2025-01-30 17:44] LABS: Ferritin 262.0 ng/ml (11.1-264.0)
[2025-01-30] MEDS: REMOVE LIDOCAINE PATCH 1 PATCH REMOVE (21:33)
[2025-01-30] MEDS: MELATONIN 5 MG PO (21:39)
[2025-01-30] MEDS: HEPARIN 25000 UNITS/250 ML IV (21:48)
[2025-01-30 22:55] VITALS: BP 127/56
[2025-01-31] VITALS (15 sets, daily range): BP systolic 105–158; BP diastolic 53–69; BMI 27.9
[2025-01-31] MEDS: DILAUDID 0.5 MG IV ×4 (00:12→22:58)
[2025-01-31] MEDS: ZOSYN IV ×4 (02:33→20:15)
[2025-01-31] MEDS: IMODIUM 2 MG PO ×4 (03:44→20:55)
[2025-01-31] MEDS: SYNTHROID 125 MCG PO (06:20)
--- NOTE | 2025-01-31 07:49 | W.PN.GI.CBS2 ---
Addendum entered and electronically signed by Enedina Rosenberg MD 01/31/25 18:32:
I saw and examined the patient.
The FACING MACHINE OPERATOR or PA's note was reviewed and I agree with the note.
Comment: DPerformed Anoscopy on this patient as there was a concern for rectal fullness on ARTUR previously. On digital rectal exam by me, no lesion felt.
Anoscopy did not show any evidence of rectal mass/small amount of solid stool noted.
Original Note:
Today's Communication / Plan
-
etiology of diarrhea with incontinence of small amount related to recent abx, c-diff, vs other
there was a question of mass on exam but not seen in follow up rectal or anoscopy done today ? piece of stool. Pt still with incontinence but less volumes
remains on Imodium
I reviewed with patient incontinence may continued til work up completed with colon and may need anal manometry testing -- she is aware and as long as small volume she is able to manage problem
with critical limb ischemia reviewed with Dr. Murcia-plan to proceed with vascular procedure-- pt it tolerating anticoagulation -- remain on Plavix and heparin
I reviewed with patient importance of proceeding with colonoscopy when Plavix can be held in 4-6 weeks
I sent message to office to arrange office visit for 4 weeks vs patient is from [place] and will review with PCP for GI closer to her house for evaluation
cont PO vanco
pt refusing Zosyn
discussed with Dr. Murcia, Dr. Fernandez and Dr. Wilson
updated nurse on plan
pt with multiple questions all answered-- offer to call family pt declined as daughter in [place]
as diarrhea improving will sign off call with questions
Assessment / Plan
-
Pt is a 84yo presents with HX ASCVD, PAD on chronic Plavix with( prior left popiteal/plantar artery bypass, angio, stent to SFA then toe amp of 5 th toe amp and metatarsal head 09/2024) , CKD, anemia of chronic disease, RA, hypothyroidism,
thyroidectomy, HTN with admission 01/26 with increased pain in right third toe with plan per vascular for RLE angio Wednesday but has complaints of diarrhea and asked to eval. Stool cx 01/27 neg and c-diff ag + tox neg. Pt currently on heparin gtt,
Plavix along with PO vanco and Zosyn (pt has refused since 01/27). In review with patient she admits to regular stools with BM every several days. Since admission she now noted with diarrhea but in review with staff concern for incontinence of
small amount of brown stool with mucous. No hx EGD or colonoscopy in past. no recent travel, abx or sick contacts.
-incontinence with small amounts of brown mucosa stool
-anemia - iron studies not consistent with iron deficiency
-c-diff ag + tox neg
-concern for irregularity on rectal exam at tip of finger not noted on follow up exam and anoscopy
-PAD with concern for chronic limb ischemia RLQ with toe gangrene
other med problems:
ASCVD,hx prior left popiteal/plantar artery bypass, angio, stent to SFA then toe amp of 5 th toe amp and metatarsal head 09/2024 , CKD, anemia of chronic disease, RA, hypothyroidism, thyroidectomy, HTN
PLAN:
etiology of diarrhea with incontinence of small amount related to recent abx, c-diff, vs other
there was a question of mass on exam but not seen in follow up rectal or anoscopy done today ? piece of stool. Pt still with incontinence but less volumes
remains on Imodium
with critical limb ischemia reviewed with Dr. Murcia-plan to proceed with vascular procedure-- pt it tolerating anticoagulation -- remain on Plavix and heparin
I reviewed with patient importance of proceeding with colonoscopy when Plavix can be held in 4-6 weeks
I sent message to office to arrange office visit for 4 weeks vs patient is from [place] and will review with PCP for GI closer to her house for evaluation
cont PO vanco
pt refusing Zosyn
discussed with Dr. Murcia, Dr. Fernandez and Dr. Wilson
updated nurse on plan
pt with multiple questions all answered-- offer to call family pt declined as daughter in [place]
Subjective
Subjective
Date of Service: January 31, 2025
still with some incontinence of stool overnight but less volume, still with leg redness, NPO for vascular procedure
Objective
Data Reviewed
Laboratory Data:
Laboratory Results
APTT 85.7 Sec (23.4-35.0) H 01/30/25 06:26
Magnesium 2.1 mg/dl (1.6-2.3) 01/28/25 06:23
Total Bilirubin 0.4 mg/dl (0.2-1.3) 01/26/25 15:45
AST 20 U/L (14-36) 01/26/25 15:45
ALT 21 U/L (0-35) 01/26/25 15:45
Alkaline Phosphatase 85 U/L (38-126) 01/26/25 15:45
Vital Signs and I&O:
Vital Signs
Temp Pulse Resp BP Pulse Ox
98.2 F 87 16 158/67 97
01/31/25 07:27 01/31/25 07:27 01/31/25 07:27 01/31/25 07:27 01/31/25 07:27
I&O
01/30/25 01/31/25 02/01/25
06:59 06:59 06:59
Intake Total 1650 / 1650 790 / 790
Balance 1650 / 1650 790 / 790
Physical Exam
Physical Exam
HEENT: Anicteric and Moist mucous membranes
Cardiology: Normal Sinus Rhythm
Pulmonary: Clear
GI: Soft, Distended and Non Tender
Rectal: Other (anoscopy preformed with Dr. Rosenberg-- no mass noted at tip of opening scope some stool -- ? irregularity was stool)
Extremities: Other (right leg swelling and tenderness )
Neuro: Non Focal
--- NOTE | 2025-01-31 08:21 | W.PN.HOSP.TC ---
Today's Communication/Plan
-
RLE arteriogram showed no endovascular options
Patient continues to refuse IV antibiotics
Podiatry consultation to evaluate for any debridement etc.
Assessment / Plan
Assessment / Plan
Physical Exam
General: Not in acute distress
HEENT: Moist mucous membranes
Respiratory: Clear to Auscultation Bilaterally
Cardiac: S1/S2 and Regular Rhythm
GI: Soft, Non Tender, Non Distended and Normal Bowel Sounds
Musculoskeletal: Other (Erythema and mild edema of the R forefoot and all toes. Pulses not appreciable on exam. R 3rd toe with necrotic change of distal tip.)
Neuro: AO x 3
Assessment/Plan
84 y/o female with past medical history significant for ASCVD/PAD, hypertension and hypothyroidism who presented to [facility] emergency room complaining of right foot pain x several weeks. Patient stated that her symptoms initially started in October 2024
when she banged her foot into a chair leg. Her symptoms had persisted / progressed since that time. She had been followed by her usual Wire Drawing Setter - Dr. Breen - who started her on ciprofloxacin about 4-5 days prior to presentation. She had noted no
improvement in her symptoms and on 01/25/25, Dr. Breen advised her to present to [facility] ED for further evaluation. At the time of admission, patient denied any systemic complaints including fevers / chills, N/V/D, etc.
Patient was last hospitalized at [facility] in September 2024 when she underwent revascularization of the LLE (Dr. Murcia) and amputation of the L 5th toe / MT head (Dr. Lafleur).
ASCVD / PAD
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
Post-Op Day 6 Bypass and SFA/pop stent
- Patient denied any anticoagulants or antiplatelet agents despite prior med list and history
- Vascular Surgery evaluation for additional recommendations / possible ischemic evaluation and intervention.
- Continue IV heparin infusion for now.
- Needs IV antibiotics coverage with Zosyn given right foot erythema -- although patient has been refusing antibiotics, she appears to be doing okay without antibiotics right now
- Monitor very closely for any worsening signs or symptoms of infection, including in the right foot
- Follow pulse checks / vascular checks.
- Will likely require amputation of R 3rd toe as well (? Vascular v Podiatry - prior digital amputation by Dr. Lafleur).
- RLE agram TODAY -- showed no endovascular options
- Baby Aspirin was started on admission. Suspect that patient is supposed to be on some anticoagulant / antiplatelet regimen - though she denied this -- based on last discharge summary, should be on Clopidogrel 75 mg daily
and Rivaroxaban 2.5 mg BID -- spoke with vascular surgery Dr. Mccoy and [facility]rice vascular CHILD PROTECTIVE SERVICES SPECIALIST, okay to change the Aspirin to Plavix -- continue Heparin Drip in lieu of Rivaroxaban for now, and continue Plavix 75 mg daily
- Vascular surgery team requested that I consult podiatry -- consulted Dr. Tellez (as she has seen the patient in the past)
Non-Anion Gap Metabolic Acidosis
- RESOLVED
- Likely from Normal Saline IV fluids
- Switched to LR IV fluids with resulting improvement
Diarrhea
C. Diff Antigen Positive, Toxin Negative
- Suspected from Zosyn antibiotics -- patient has been refusing IV antibiotics because of diarrhea
- Stool studies showed C. Diff antigen positive, toxin negative -- I confirmed with ID and infection control nurse that no precautions are needed for this
- Stool studies negative except C. Diff antigen positive, toxin negative
- Discussed (but not formal consult) the above result with ID who recommended PO Vancomycin 125 PO Q12H while IV antibiotics are given for patient's right foot infection and also Imodium for her diarrhea
- GI consulted given persistent watery diarrhea despite Imodium -- GI mentioned that incontinence may continue until work-up completed with colon and may need anal manometry testing -- gastroenterology reviewed with
patient importance of proceeding with colonoscopy when Plavix can be held in 4-6 weeks
- GI sent message to [facility] office to arrange office visit for 4 weeks versus patient is from [place] and will review with PCP for GI closer to her home for evaluation
Benign Hypertension
- Continue amlodipine with holding parameters. Adjust as needed.
ARETHA on CKD III
- SCr = 1.7-->1.6-->1.4-->1.5-->1.2 compared to known baseline of 1.4.
Anemia of Chronic Disease
- Stable. Hgb is at / near known baseline.
Hypothyroidism
- Continue current T4 replacement.
DVT Prophylaxis: IV heparin infusion
Code Status: DNR
Anticipated Discharge: 24 - 48 hours
Subjective/Interval History
-
Date of Service: January 31, 2025
Patient was seen and examined. She reported her diarrhea has been controlled with the Imodium, she denied any new significant symptoms or complaints.
Objective Data
-
Labs:
Laboratory Results
01/31/25
06:00
WBC Pending
Hgb Pending
Hct Pending
Plt Count Pending
APTT Pending
Sodium Pending
Potassium Pending
Chloride Pending
Carbon Dioxide Pending
BUN Pending
Creatinine Pending
Glucose Pending
Calcium Pending
Vital Signs:
Vital Signs
Temp Pulse Resp BP Pulse Ox
98.2 F 87 16 158/67 97
01/31/25 07:27 01/31/25 07:27 01/31/25 07:27 01/31/25 07:27 01/31/25 07:27
I&O
01/30/25 01/31/25 02/01/25
06:59 06:59 06:59
Intake Total 1650 / 1650 790 / 790
Balance 1650 / 1650 790 / 790
[2025-01-31] MEDS: PLAVIX 75 MG PO (08:45)
[2025-01-31] MEDS: NORVASC 5 MG PO (08:45)
[2025-01-31] MEDS: NON-FORMULARY ITEM 1 PATCH TOPICAL (08:47)
[2025-01-31] MEDS: FLUSH (NSS) 1 FLUSH IV (08:55)
[2025-01-31 10:02] LABS: Hematocrit 31.6 % (37.0-47.0); Hemoglobin 9.9 g/dL (12.0-16.0); Mean Corp Hgb Conc. 31.3 g/dL (33.0-37.0); Mean Corpuscular Volume 104.3 fL (81.0-99.0); Platelet Count 282 10^3/uL (130-400); Red Cell Dist. Width 14.1 % (11.5-14.5)
[2025-01-31] MEDS: FIRVANQ 125 MG PO ×2 (10:16→22:55)
--- NOTE | 2025-01-31 10:28 | W.PN.UPDATE ---
Update Note
Progress Note Update
Seen and evaluated. Discussed with GI (before and after they performed an anoscopy). Plan for angiogram today.
[2025-01-31 10:29] LABS: APTT 47.9 Sec (23.4-35.0)
[2025-01-31 11:06] LABS: Blood Urea Nitrogen 22 mg/dl (7-17); Calcium 8.9 mg/dl (8.4-10.2); Carbon Dioxide 24 mmol/L (22-30); Chloride 111 mmol/L (98-107); Estimated Creatinine Clearance 34 ml/min; Glucose 92 mg/dl (70-99); Magnesium 1.9 mg/dl (1.6-2.3); Potassium 4.7 mmol/L (3.5-5.1); Sodium 138 mmol/L (135-145); eGFR 45.19
[2025-01-31] MEDS: LR 1000 IV (12:14)
[2025-01-31] MEDS: NORCO 5/325 1 TABLET PO (12:22)
--- NOTE | 2025-01-31 14:46 | PTCARENOTE ---
received pt from [facility] room 335-1.[place], alert and oriented x 3. vss bp 143/72, nsr w pvc at 73 bpm., 02 sat 97% , rr 19. lungs are clear. dr cabrera from anesthesia was notified to come see pt. dr Murcia arrived to obtain consent. pt has
scratches, healing on bilat legs ., able to obtain pt and dp pulses by doppler. rt middle toe necrotic/black and dry. other toes on rt foot w reddness , positive sensation , denies numbness.
DR Cabrera arrived to interview pt at 300pm. pt wearing 1 ring on rt hand, 3 on left hand covered w tape.pt wearing gold colored cross nedklace w 5 stones , that was removed and placed in bag and taped to chart .
--- NOTE | 2025-01-31 15:07 | PTCARENOTE ---
vascular lab made aware of caroline on and taped to chart.
--- NOTE | 2025-01-31 15:12 | PTCARENOTE ---
iv access site in rt forearm 22 jelco w positive blood return and flushes easily .
--- NOTE | 2025-01-31 15:20 | CM ---
Met with patient she corrected VN she wanted . Pt requested [facility] .Referral placed in care port.
[facility] Notified not to see pt.
Pt for Vascular procedure today.
PLAN Home with [facility] fax [phone]
--- NOTE | 2025-01-31 16:03 | W.SUR.POST ---
Surgical Immediate Post Op
Note
Pre Op Diagnosis: nonhealing toe wound
Post Op Diagnosis: same
Procedure Performed: RLE diagnostic arteriogram
Primary Surgeon: Twin
Anesthesia: local and sedation
Estimated Blood Loss: <2cc
Fluids: see anesthesia flow sheet
Drains/Shunts: none
Specimens/Cultures: none
Doppler/Duplex/Angio (Y/N): Y
Complications: none
Operative Findings: No endovascular options
--- NOTE | 2025-01-31 16:24 | OR.RPT ---
Operative Report
Operative Report
PROCEDURE DATE: 01/31/2025
Preoperative diagnosis: Chronic limb threatening ischemia right lower extremity. Gangrene right foot.
Postoperative diagnosis: Same
Procedure:
1. Duplex assisted cannulation left common femoral artery.
2. Aortogram and pelvic angiogram.
3. Right lower extremity arteriogram with selective cannulation of right superficial femoral artery.
4. Left femoral angiogram.
5. Supervision and interpretation.
Surgeon: Twin
Tire Design Engineer: None
Complications: None
Anesthesia: Local, sedation
Fluoroscopy:
7.6 min
43 mGy
12.05 gy.cm2
Indications for procedure:
Chronic limb threatening ischemia right lower extremity with gangrene. Risk/benefits/alternatives of angiography fully discussed. Patient understood all wished to proceed.
Description of procedure:
Patient was identified, brought to the operating room. Placed on the table in the supine position. After the adequate administration of anesthesia, the patient was prepped and draped in the standard surgical fashion. A standard preoperative
timeout was undertaken and everybody was in agreement with the plan.
The left common femoral artery was accessed with a micropuncture kit under direct duplex ultrasound guidance. A 5 Macedonian sheath was then advanced over a 0.035 inch wire, and a osborn's hook catheter was advanced into the abdominal aorta.
Aortogram and pelvic angiogram was obtained. Findings as follows:
The infrarenal aorta and bilateral common and external iliac arteries were patent with no significant stenosis. Eccentric calcified plaque noted throughout those vessels. Mild ectasia of the distal infrarenal aorta noted.
Using a floppy angled hydrophilic wire, the right common femoral artery was cannulated and the catheter was advanced. Right lower extremity arteriogram was obtained. Findings as follows:
Common femoral artery: Patent with high bifurcation. There was a large branch that emanated from the lateral aspect of the common femoral artery but did not appear to be the main profunda. The main profunda appeared to emanate posteriorly and then
wraparound towards its lateral course.
Profunda femoris artery: As above in terms of its course, no significant stenosis identified.
Superficial femoral artery: Patent with luminal irregularities about 8 to 10 cm beyond the origin resulting in mild stenosis but not significant over the course about 3 to 4 cm. Then in the midsegment there is a napkin ring like stenosis that
appeared to be somewhat flow-limiting. Distal to there at the transition to the above-knee popliteal artery there was some luminal irregularities with likely mild to moderate stenosis at least over the course of 3 to 5 cm.
Popliteal artery: Above the knee popliteal artery with continuation of stenosis from the SFA, at least moderate in the proximal segment. Then in the more distal above the knee popliteal artery there was a severe string-like stenosis. Hardware
precluded seeing behind the knee as well but there did not appear to be a severe stenosis. Below the knee the popliteal artery had significant stenosis before giving rise to runoff vessels.
While it appeared that the runoff vessels (three-vessel) were patent proximally, they all were severely diseased with heavy calcific plaque. Runoff demonstrated complete occlusion of all these vessels. There was no reconstitution of any named
vessel throughout the ankle or foot. I initially thought that there was a reconstituted plantar but it did not appear to be a true plantar. The distal peroneal artery may have been reconstituted but was very diseased with possible occlusions.
There were well-formed collaterals throughout the calf and ankle. At this point I felt that there was no endovascular option to render here. I did not feel that intervening upon the SFA/popliteal artery stenoses would be of benefit with complete
occlusive disease below the knee. At this point my catheters and wires were all withdrawn. Left femoral angiogram obtained through the sheath demonstrated good puncture in the left common femoral artery. The left SFA/above-knee popliteal stent
was widely patent. The sheath was withdrawn and manual pressure was applied to the puncture site. Hemostasis was fully achieved.
The patient tolerated procedure well.
[2025-01-31] MEDS: NSS 1000 IV (17:47)
[2025-01-31] MEDS: REMOVE LIDOCAINE PATCH 1 PATCH REMOVE (20:55)
[2025-01-31] MEDS: MELATONIN 5 MG PO (22:55)
[2025-01-31 23:38] LABS: APTT 48.6 Sec (23.4-35.0)
[2025-02-01] VITALS (7 sets, daily range): BP systolic 101–152; BP diastolic 58–90; BMI 28.2
[2025-02-01] MEDS: ZOSYN IV ×3 (02:05→14:28)
[2025-02-01] MEDS: SYNTHROID 125 MCG PO (06:17)
[2025-02-01] MEDS: LR IV (06:17)
[2025-02-01] MEDS: IMODIUM 2 MG PO ×4 (06:27→20:37)
[2025-02-01 06:31] LABS: Hematocrit 29.8 % (37.0-47.0); Hemoglobin 9.2 g/dL (12.0-16.0); Mean Corp Hgb Conc. 30.9 g/dL (33.0-37.0); Mean Corpuscular Volume 105.7 fL (81.0-99.0); Platelet Count 286 10^3/uL (130-400); Red Cell Dist. Width 14.0 % (11.5-14.5)
[2025-02-01 06:43] LABS: APTT 121.6 Sec (23.4-35.0)
[2025-02-01 06:50] LABS: Blood Urea Nitrogen 24 mg/dl (7-17); Calcium 8.6 mg/dl (8.4-10.2); Carbon Dioxide 24 mmol/L (22-30); Chloride 110 mmol/L (98-107); Estimated Creatinine Clearance 34 ml/min; Glucose 139 mg/dl (70-99); Potassium 4.8 mmol/L (3.5-5.1); Sodium 136 mmol/L (135-145); eGFR 45.19
[2025-02-01] MEDS: PLAVIX 75 MG PO (08:41)
[2025-02-01] MEDS: NORVASC 5 MG PO (08:41)
[2025-02-01] MEDS: HEPARIN 25000 UNITS/250 ML IV (08:45)
[2025-02-01] MEDS: NON-FORMULARY ITEM 1 PATCH TOPICAL (08:51)
--- NOTE | 2025-02-01 09:05 | W.PN.UPDATE ---
Update Note
Progress Note Update
I discussed angiogram findings with her. Discussed that there is no target below the knee. She has complete occlusive disease. Discussed with her that I do not think any transcatheter arterialization of the deep veins would be warranted or
successful either based on her anatomy. Therefore I am primarily recommending amputation below the knee or above the knee. She is however quite adamant against it. The other 2 alternatives I suggested therefore is expectant management, but
discussed likelihood of eventual wet gangrene/infection with sepsis and threat to life. Alternatively discussed toe amputation, but the strong likelihood that that would not heal as well. However if we were to go that route with a clear
understanding that there is a very strong chance that that would not heal, then I would favor either before or after performing angiogram to angioplasty/stent the SFA/popliteal disease to help enhance flow into the collaterals. She understands all
that and wishes to proceed with that route. I have discussed with Dr. Tellez (who is to see the patient later today) the outcome of my discussion with patient.
[2025-02-01] MEDS: FIRVANQ 125 MG PO ×2 (11:01→21:52)
--- NOTE | 2025-02-01 12:38 | CM ---
Pt requested [facility] .Referral placed in care port.
Family will drive her [place].
PLAN Home with [facility] fax [phone]
[2025-02-01] MEDS: LR 1000 IV (12:58)
--- NOTE | 2025-02-01 13:10 | CON.MD ---
Consultation - Medical
-
84 year old female know to our service with injury to right 3rd toe and sent to by her local telecommunication systems designer for non healing wound. Distal aspect of toe is now necrotic with dry gangrene. She has limb threatening PAD and is status post left partial
5th ray amputation. Vascular studies were performed on the right LE and it was determined by Dr. Murcia that angiogram results show revascularization of the right lower limb is not possible. Patient is afebrile with no elevation of WBC, however she
has been experiencing severe diarrhea possibly due to previous oral antibiotic therapy. We reviewed her treatment options as she had discussed with Dr Murcia earlier, and she is adamantly opposed to lower limb amputation. We could attempt to remove
the toe but she was warned that based on her arterial studies, the surgical site is unlikely to heal, and may turn necrotic. As the area is currently dry and free of infection, we discussed continuing a dry dressing with no surgical intervention,
however there is a high possibility that the area will eventually become infected. Patient states that as the toe is not painful as long as it is not touched, she does not want to go through an angioplasty and amputation if it is unlikely to heal,
and 'would rather before she needs a prosthesis'. Will discuss the conversation with Dr. Murcia.
[2025-02-01 13:29] LABS: APTT 132.1 Sec (23.4-35.0)
[2025-02-01] MEDS: DILAUDID 0.5 MG IV (16:50)
--- NOTE | 2025-02-01 17:30 | W.PN.HOSP.TC ---
Today's Communication/Plan
-
See plan
Assessment / Plan
Assessment / Plan
Physical Exam
General: Not in acute distress
HEENT: Moist mucous membranes
Respiratory: Clear to Auscultation Bilaterally
Cardiac: S1/S2 and Regular Rhythm
GI: Soft, Non Tender, Non Distended and Normal Bowel Sounds
Musculoskeletal: Other (Erythema and mild edema of the R forefoot and all toes. Pulses not appreciable on exam. R 3rd toe with necrotic change of distal tip.)
Neuro: AO x 3
Assessment/Plan
84 y/o female with past medical history significant for ASCVD/PAD, hypertension and hypothyroidism who presented to [facility] emergency room complaining of right foot pain x several weeks. Patient stated that her symptoms initially started in October 2024
when she banged her foot into a chair leg. Her symptoms had persisted / progressed since that time. She had been followed by her usual Optometrist/Practice Owner - Dr. Breen - who started her on ciprofloxacin about 4-5 days prior to presentation. She had noted no
improvement in her symptoms and on 01/25/25, Dr. Breen advised her to present to [facility] ED for further evaluation. At the time of admission, patient denied any systemic complaints including fevers / chills, N/V/D, etc.
Patient was last hospitalized at [facility] in September 2024 when she underwent revascularization of the LLE (Dr. Murcia) and amputation of the L 5th toe / MT head (Dr. Lafleur).
ASCVD / PAD
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
Post-Op Day 6 Bypass and SFA/pop stent
- Patient denied any anticoagulants or antiplatelet agents despite prior med list and history
- Vascular Surgery evaluation for additional recommendations / possible ischemic evaluation and intervention.
- Continue IV heparin infusion for now.
- Needs IV antibiotics coverage with Zosyn given right foot erythema -- although patient has been refusing antibiotics, she appears to be doing okay without antibiotics right now -- can hold off on antibiotics for
now
- Monitor very closely for any worsening signs or symptoms of infection, including in the right foot
- Follow pulse checks / vascular checks.
- Will likely require amputation of R 3rd toe as well (? Vascular v Podiatry - prior digital amputation by Dr. Lafleur).
- RLE almitaam 01/31/25: it showed no endovascular options
- Baby Aspirin was started on admission. Suspect that patient is supposed to be on some anticoagulant / antiplatelet regimen - though she denied this -- based on last discharge summary, should be on Clopidogrel 75 mg daily
and Rivaroxaban 2.5 mg BID -- spoke with vascular surgery Dr. Mccoy and Beatrice vascular BARREL ASSEMBLER HELPER, okay to change the Aspirin to Plavix -- continue Heparin Drip in lieu of Rivaroxaban for now, and continue Plavix 75 mg daily
- Vascular surgery team requested that I consult podiatry -- consulted Dr. Tellez (as she has seen the patient in the past)
- Podiatry and vascular recommended amputation which the patient does not want to do
Non-Anion Gap Metabolic Acidosis
- RESOLVED
- Likely from Normal Saline IV fluids
- Switched to LR IV fluids with resulting improvement
Diarrhea
C. Diff Antigen Positive, Toxin Negative
- Suspected from Zosyn antibiotics -- patient has been refusing IV antibiotics because of diarrhea
- Stool studies showed C. Diff antigen positive, toxin negative -- I confirmed with ID and infection control nurse that no precautions are needed for this
- Stool studies negative except C. Diff antigen positive, toxin negative
- Discussed (but not formal consult) the above result with ID who recommended PO Vancomycin 125 PO Q12H fro C. Diff prophylaxis (given was on IV antibiotics) and Imodium for her diarrhea
- GI consulted given persistent watery diarrhea despite Imodium -- GI mentioned that incontinence may continue until work-up completed with colon and may need anal manometry testing -- gastroenterology reviewed with
patient importance of proceeding with colonoscopy when Plavix can be held in 4-6 weeks
- GI sent message to [facility] office to arrange office visit for 4 weeks versus patient is from [place] and will review with PCP for GI closer to her home for evaluation
Benign Hypertension
- Continue amlodipine with holding parameters. Adjust as needed.
ARETHA on CKD III
- SCr = 1.7-->1.6-->1.4-->1.5-->1.2 compared to known baseline of 1.4.
Anemia of Chronic Disease
- Stable. Hgb is at / near known baseline.
Hypothyroidism
- Continue current T4 replacement.
DVT Prophylaxis: IV heparin infusion
Code Status: DNR
Anticipated Discharge: 24 - 48 hours
Subjective/Interval History
-
Date of Service: February 01, 2025
Patient was seen and examined. She reported no new symptoms.
Objective Data
-
Labs:
Laboratory Results
02/01/25 02/01/25 02/01/25
05:52 13:00 21:30
WBC 7.2
Hgb 9.2 L
Hct 29.8 L
Plt Count 286
APTT 121.6 H 132.1 H Pending
Sodium 136
Potassium 4.8
Chloride 110 H
Carbon Dioxide 24
BUN 24 H
Creatinine 1.2 H
Glucose 139 H
Calcium 8.6
Vital Signs:
Vital Signs
Temp Pulse Resp BP Pulse Ox
98.1 F 90 17 129/90 96
02/01/25 14:49 02/01/25 14:49 02/01/25 14:49 02/01/25 14:49 02/01/25 14:49
I&O
01/31/25 02/01/25 02/02/25
06:59 06:59 06:59
Intake Total 790 / 790 1142 / 1142 840 / 840
Balance 790 / 790 1142 / 1142 840 / 840
[2025-02-01] MEDS: REMOVE LIDOCAINE PATCH REMOVE (20:22)
[2025-02-01] MEDS: MELATONIN 5 MG PO (21:52)
[2025-02-01 22:53] LABS: APTT 73.0 Sec (23.4-35.0)
[2025-02-02] MEDS: IMODIUM 2 MG PO ×6 (00:51→22:14)
[2025-02-02] MEDS: TYLENOL 650 MG PO ×2 (00:52→17:55)
[2025-02-02] MEDS: LR 1000 IV ×2 (02:30→11:28)
[2025-02-02 03:00] VITALS: BP 112/78
[2025-02-02 04:51] LABS: Hematocrit 27.8 % (37.0-47.0); Hemoglobin 8.9 g/dL (12.0-16.0); Mean Corp Hgb Conc. 32.0 g/dL (33.0-37.0); Mean Corpuscular Volume 101.1 fL (81.0-99.0); Platelet Count 318 10^3/uL (130-400); Red Cell Dist. Width 14.0 % (11.5-14.5)
[2025-02-02 04:58] LABS: APTT 49.1 Sec (23.4-35.0)
[2025-02-02] MEDS: SYNTHROID 125 MCG PO (05:00)
[2025-02-02 05:17] LABS: Blood Urea Nitrogen 28 mg/dl (7-17); Calcium 8.6 mg/dl (8.4-10.2); Carbon Dioxide 24 mmol/L (22-30); Chloride 110 mmol/L (98-107); Estimated Creatinine Clearance 32 ml/min; Glucose 94 mg/dl (70-99); Potassium 4.8 mmol/L (3.5-5.1); Sodium 140 mmol/L (135-145); eGFR 41.06
[2025-02-02 07:13] VITALS: BP 96/59
[2025-02-02] MEDS: NORCO 5/325 1 TABLET PO (08:38)
[2025-02-02] MEDS: FIRVANQ 125 MG PO (08:41)
[2025-02-02] MEDS: PLAVIX 75 MG PO (08:41)
[2025-02-02] MEDS: NON-FORMULARY ITEM TOPICAL (08:41)
[2025-02-02] MEDS: NORVASC 5 MG PO (08:45)
[2025-02-02] MEDS: NON-FORMULARY ITEM 1 PATCH TOPICAL (08:59)
--- NOTE | 2025-02-02 09:03 | W.PN.HOSP.TC ---
Today's Communication/Plan
-
See plan
Assessment / Plan
Assessment / Plan
Physical Exam
General: Not in acute distress
HEENT: Moist mucous membranes
Respiratory: Clear to Auscultation Bilaterally
Cardiac: S1/S2 and Regular Rhythm
GI: Soft, Non Tender, Non Distended and Normal Bowel Sounds
Musculoskeletal: Other (Erythema and mild edema of the R forefoot and all toes. Pulses not appreciable on exam. R 3rd toe with necrotic change of distal tip.)
Neuro: AO x 3
Assessment/Plan
84 y/o female with past medical history significant for ASCVD/PAD, hypertension and hypothyroidism who presented to [facility] emergency room complaining of right foot pain x several weeks. Patient stated that her symptoms initially started in October 2024
when she banged her foot into a chair leg. Her symptoms had persisted / progressed since that time. She had been followed by her usual Auto Body Detailer - Dr. Breen - who started her on ciprofloxacin about 4-5 days prior to presentation. She had noted no
improvement in her symptoms and on 01/25/25, Dr. Breen advised her to present to [facility] ED for further evaluation. At the time of admission, patient denied any systemic complaints including fevers / chills, N/V/D, etc.
Patient was last hospitalized at [facility] in September 2024 when she underwent revascularization of the LLE (Dr. Murcia) and amputation of the L 5th toe / MT head (Dr. Lafleur).
ASCVD / PAD
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
Post-Op Day 6 Bypass and SFA/pop stent
- Patient denied any anticoagulants or antiplatelet agents despite prior med list and history
- Vascular Surgery evaluation for additional recommendations / possible ischemic evaluation and intervention.
- Continue IV heparin infusion for now.
- Needs IV antibiotics coverage with Zosyn given right foot erythema -- although patient has been refusing antibiotics, she appears to be doing okay without antibiotics right now -- can hold off on antibiotics for
now -- I confirmed with concrete plant laborer Dr. Tellez that patient does not need antibiotics
- Monitor very closely for any worsening signs or symptoms of infection, including in the right foot
- Follow pulse checks / vascular checks.
- Will likely require amputation of R 3rd toe as well (? Vascular v Podiatry - prior digital amputation by Dr. Lafleur).
- RLE agram 01/31/25: it showed no endovascular options
- Baby Aspirin was started on admission. Suspect that patient is supposed to be on some anticoagulant / antiplatelet regimen - though she denied this -- based on last discharge summary, should be on Clopidogrel 75 mg daily
and Rivaroxaban 2.5 mg BID -- spoke with vascular surgery Dr. Mccoy and Beatrice vascular STAFFING MGR, okay to change the Aspirin to Plavix -- continue Heparin Drip in lieu of Rivaroxaban for now, and continue Plavix 75 mg daily
- Vascular surgery team requested that I consult podiatry -- consulted Dr. Tellez (as she has seen the patient in the past)
- Podiatry and vascular recommended amputation which the patient does not want to do -- I confirmed with Dr. Tellez and Dr. Murcia on 02/02/25 that no amputation is planned for the patient after
their discussion with the patient
Non-Anion Gap Metabolic Acidosis
- RESOLVED
- Likely from Normal Saline IV fluids
- Switched to LR IV fluids with resulting improvement
Diarrhea
C. Diff Antigen Positive, Toxin Negative
- Patient has been refusing IV antibiotics because of diarrhea -- confirmed with Dr. Tellez that patient does not need any further IV antibiotics for her foot
- Stool studies showed C. Diff antigen positive, toxin negative -- I confirmed with ID and infection control nurse that no precautions are needed for this
- Stool studies negative except C. Diff antigen positive, toxin negative
- Discussed (but not formal consult) the above result with ID who recommended PO Vancomycin 125 PO Q12H fro C. Diff prophylaxis (given was on IV antibiotics) and Imodium for her diarrhea
- Will STOP PO Vanco since it has been almost a week since patient got IV Zosyn,
- GI consulted given persistent watery diarrhea despite Imodium -- GI mentioned that incontinence may continue until work-up completed with colon and may need anal manometry testing -- gastroenterology reviewed with
patient importance of proceeding with colonoscopy when Plavix can be held in 4-6 weeks
- GI sent message to [facility] office to arrange office visit for 4 weeks versus patient is from [place] and will review with PCP for GI closer to her home for evaluation
- GI re-evaluation appreciated 02/02/25
Benign Hypertension
- Continue amlodipine with holding parameters. Adjust as needed.
ARETHA on CKD III
- SCr = 1.7-->1.6-->1.4-->1.5-->1.2-->1.3 compared to known baseline of 1.4.
Anemia of Chronic Disease
- Stable. Hgb is at / near known baseline.
Hypothyroidism
- Continue current T4 replacement.
DVT Prophylaxis: IV heparin infusion
Code Status: DNR
Total time spent in caring for patient, including chart review, documentation, seeing and examining the patient, speaking with specialists, and speaking with patient's daughter, was greater than 65 minutes.
Anticipated Discharge: 24 - 48 hours
Subjective/Interval History
-
Date of Service: February 02, 2025
Patient was seen and examined. She reported to continue to say that feels like she is having diarrhea.
Objective Data
-
Labs:
Laboratory Results
02/01/25 02/02/25 02/02/25
22:36 04:34 11:00
WBC 7.9
Hgb 8.9 L
Hct 27.8 L
Plt Count 318
APTT 73.0 H 49.1 H Pending
Sodium 140
Potassium 4.8
Chloride 110 H
Carbon Dioxide 24
BUN 28 H
Creatinine 1.3 H
Glucose 94
Calcium 8.6
Vital Signs:
Vital Signs
Temp Pulse Resp BP Pulse Ox
98.2 F 93 18 156/69 97
02/02/25 07:13 02/02/25 08:45 02/02/25 07:13 02/02/25 08:45 02/02/25 07:13
I&O
02/01/25 02/02/25 02/03/25
06:59 06:59 06:59
Intake Total 1142 / 1142 1844 / 184
Balance 1142 / 1142 1844 / 184
[2025-02-02 11:08] VITALS: BP 164/91
[2025-02-02] MEDS: HEPARIN 25000 UNITS/250 ML IV (11:29)
[2025-02-02 12:00] LABS: APTT 89.2 Sec (23.4-35.0)
--- NOTE | 2025-02-02 12:32 | CM ---
Maintained on Heparin gtt.
PT indicated VN.
Pain med as needed.
Pt requested [facility] agency she had before. Referral accepted in care port .
Family to transport .
[facility] Home with [facility] fax fax [phone]
--- NOTE | 2025-02-02 13:22 | VATNOTE ---
attempted IV rounds for routine assessment, and upon entry patient stated 'get out... leave' unable to perform routine IV rounds for patient.
--- NOTE | 2025-02-02 15:08 | WOUNDNOTE ---
[facility] RN note: Patient admitted with infected right 3rd toe
See H&P for complete history.
PMH: PAD, HTN, hypothyroidism, CKD Stage III, hx below the knee popliteal to plantar artery bypass with vein graft and left distal SFA to above knee popliteal artery stenting with Dr. Murcia 09/2024.
Wound Location and type/assessment: Patient admitted with dry gangrene of right 3rd toe. Per chart review, patient has limb threatening PAD and a below knee amputation has been recommended. Patient has refused amputation and [facility] RN consult has been
placed for wound care recommendations. Wound is dry and patient reports it only hurts when touched. Patient declined to be turned during assessment but per chart review sacrum is intact. Heels intact and off-loaded with pillows under calves.
Pressure redistribution devices in place: Vers[employer] Accumax
Plan: Recommend to apply Betadine to right 3rd toe daily. Patient agreeable to plan. PATRICIA Hodges given update. Will confirm orders with hospitalist. Updated care plan and will follow as needed.
Note to case management of equipment requested for discharge:
Recommend follow up at wound care center upon discharge.
[2025-02-02 15:21] VITALS: BP 107/92
--- NOTE | 2025-02-02 15:36 | WOUNDNOTE ---
RIGHT 3rd TOE
--- NOTE | 2025-02-02 15:48 | W.PN.GI.CBS2 ---
Addendum entered and electronically signed by Marcello Godinez MD 02/02/25 16:54:
I saw and evaluated the patient. I reviewed the resident�s note and agree with findings and plan as documented in the resident�s note.
Asked to see pt again for ongoing diarrhea. Pt passing small pieces of stool into bed/pad and does not feel it. Interfering with sleep.
ABD soft NTND
REC:
Agree with adding metamucil to add stool bulk
I believe change in BM related to meds, abx, change in diet. She did not have these problems [employer]ERS NON MEDICAL
Remains on PO vanco for C diff Ag positive, toxin negative, on zosyn
Add Florastor
Continue imodium as needed
Can consider lomotil next or questran
Also t/c abd xray r/o retained stool and overflow diarrhea, but pt does not feel constipated and had several rectal exams, anoscopy earlier this admission
Original Note:
Today's Communication / Plan
-
Pending attending recommendations
Continue immodium
start metamucil
Change diet for 1 day
Assessment / Plan
-
Pt is a 84yo presents with HX ASCVD, PAD on chronic Plavix with( prior left popiteal/plantar artery bypass, angio, stent to SFA then toe amp of 5 th toe amp and metatarsal head 09/2024) , CKD, anemia of chronic disease, RA, hypothyroidism,
thyroidectomy, HTN with admission 01/26 with increased pain in right third toe with plan per vascular for RLE angio Wednesday but has complaints of diarrhea and asked to eval. Stool cx 01/27 neg and c-diff ag + tox neg. Pt currently on heparin gtt,
Plavix along with PO vanco and Zosyn (pt has refused since 01/27). In review with patient she admits to regular stools with BM every several days. Since admission she now noted with diarrhea but in review with staff concern for incontinence of
small amount of brown stool with mucous. No hx EGD or colonoscopy in past. no recent travel, abx or sick contacts.
-incontinence with small amounts of brown mucosa stool
-anemia - iron studies not consistent with iron deficiency
-c-diff ag + tox neg
-concern for irregularity on rectal exam at tip of finger not noted on follow up exam and anoscopy
-PAD with concern for chronic limb ischemia RLQ with toe gangrene
other med problems:
ASCVD,hx prior left popiteal/plantar artery bypass, angio, stent to SFA then toe amp of 5 th toe amp and metatarsal head 09/2024 , CKD, anemia of chronic disease, RA, hypothyroidism, thyroidectomy, HTN
PLAN:
Pt reports improved diarrhea on immodium, so we will continue.
Start metamucil. Her symptoms could be consistent with overflow incontinence. If she is experiencing overflow incontinence, fiber will help break up the stool and if it is instead true diarrhea, fiber will help bind the stool.
Since pt reports symptoms have been constant since admission and she has had the same dinner every single day, I encouraged her to order a different meal today to see if it helps. She was agreeable to order something other than shrimp cakes for
today.
there was a question of mass on exam but not seen in follow up rectal or anoscopy done today ? piece of stool. Pt still with incontinence but less volumes
with critical limb ischemia reviewed with Dr. Murcia-plan to proceed with vascular procedure-- pt it tolerating anticoagulation -- remain on Plavix and heparin
I reviewed with patient importance of proceeding with colonoscopy when Plavix can be held in 4-6 weeks
Her PCP has already sent referral for outpt GI for colonoscopy
discussed with Dr. Murcia, Dr. Fernandez and Dr. Wilson
updated nurse on plan
pt with multiple questions all answered to apparent satisfaction
Subjective
Subjective
Date of Service: February 02, 2025
Pt reports ongoing incontinence of loose stool. She reports constant leakage of small bouts of fluid. She reports having worm sized, small amounts of loose stool, but no normal BM since admission.
Pt reports copious amounts of loose stool but nursing reports numerous bouts of small amounts of liquid. The pt is distressed about incontinence, reporting she has never had symptoms like this before and it has been ongoing since she initially came
into the hospital. She has declined an amputation but states she cannot go home with her bowels like this. She was started on immodium 3 days ago. Pt reports improvement on immodium but continued incontinence.
Upon asking about diet, she reports eating a fairly bland diet at home. Since being admitted, she has had shrimp cakes every night for dinner.
Objective
Data Reviewed
Laboratory Data:
Laboratory Results
02/02/25 04:34
02/02/25 04:34
Laboratory Results
APTT 89.2 Sec (23.4-35.0) H 02/02/25 11:18
Magnesium 1.9 mg/dl (1.6-2.3) 01/31/25 09:42
Total Bilirubin 0.4 mg/dl (0.2-1.3) 01/26/25 15:45
AST 20 U/L (14-36) 01/26/25 15:45
ALT 21 U/L (0-35) 01/26/25 15:45
Alkaline Phosphatase 85 U/L (38-126) 01/26/25 15:45
Vital Signs and I&O:
Vital Signs
Temp Pulse Resp BP Pulse Ox
98.2 F 84 18 107/92 95
02/02/25 15:21 02/02/25 15:21 02/02/25 15:21 02/02/25 15:21 02/02/25 15:21
I&O
02/01/25 02/02/25 02/03/25
06:59 06:59 06:59
Intake Total 1141
Balance 1141
Physical Exam
Physical Exam
HEENT: Anicteric and Moist mucous membranes
Pulmonary: Other (nonlabored respirations)
GI: Soft and Non Distended
Extremities: No Edema (RLE red with ulcer)
[2025-02-02] MEDS: METAMUCIL, KONSYL 1 PACKET PO (17:55)
[2025-02-02 19:00] VITALS: BP 128/56
[2025-02-02 20:26] LABS: APTT 105.7 Sec (23.4-35.0)
[2025-02-02] MEDS: FLORASTOR 250 MG PO (20:30)
[2025-02-02] MEDS: REMOVE LIDOCAINE PATCH REMOVE (20:32)
[2025-02-02] MEDS: MELATONIN 5 MG PO (22:14)
[2025-02-02 23:00] VITALS: BP 138/68
[2025-02-02] MEDS: DILAUDID 0.5 MG IV (23:42)
[2025-02-03 03:00] VITALS: BP 149/76
[2025-02-03] MEDS: SYNTHROID 125 MCG PO (05:41)
[2025-02-03 08:05] VITALS: BP 144/70
--- NOTE | 2025-02-03 08:21 | W.PN.HOSP.TC ---
Today's Communication/Plan
-
Change Heparin Drip to Xarelto
Re-check AM BMP to assess renal function
Assessment / Plan
Assessment / Plan
Physical Exam
General: Not in acute distress
HEENT: Moist mucous membranes
Respiratory: Clear to Auscultation Bilaterally
Cardiac: S1/S2 and Regular Rhythm
GI: Soft, Non Tender, Non Distended and Normal Bowel Sounds
Musculoskeletal: Other (Erythema and mild edema of the R forefoot and all toes. Pulses not appreciable on exam. R 3rd toe with necrotic change of distal tip.)
Neuro: AO x 3
Assessment/Plan
84 y/o female with past medical history significant for ASCVD/PAD, hypertension and hypothyroidism who presented to [facility] emergency room complaining of right foot pain x several weeks. Patient stated that her symptoms initially started in October 2024
when she banged her foot into a chair leg. Her symptoms had persisted / progressed since that time. She had been followed by her usual Check Viewer - Dr. Breen - who started her on ciprofloxacin about 4-5 days prior to presentation. She had noted no
improvement in her symptoms and on 01/25/25, Dr. Breen advised her to present to [facility] ED for further evaluation. At the time of admission, patient denied any systemic complaints including fevers / chills, N/V/D, etc.
Patient was last hospitalized at [facility] in September 2024 when she underwent revascularization of the LLE (Dr. Murcia) and amputation of the L 5th toe / MT head (Dr. Lafleur).
ASCVD / PAD
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
Post-Op Day 6 Bypass and SFA/pop stent
- Patient denied any anticoagulants or antiplatelet agents despite prior med list and history
- Vascular Surgery evaluation for additional recommendations / possible ischemic evaluation and intervention.
- Continue IV heparin infusion for now.
- Needs IV antibiotics coverage with Zosyn given right foot erythema -- although patient has been refusing antibiotics, she appears to be doing okay without antibiotics right now -- can hold off on antibiotics for
now -- I confirmed with store merchandiser Dr. Tellez that patient does not need antibiotics
- Monitor very closely for any worsening signs or symptoms of infection, including in the right foot
- Follow pulse checks / vascular checks.
- Will likely require amputation of R 3rd toe as well (? Vascular v Podiatry - prior digital amputation by Dr. Lafleur).
- RLE agram 01/31/25: it showed no endovascular options
- Baby Aspirin was started on admission. Suspect that patient is supposed to be on some anticoagulant / antiplatelet regimen - though she denied this -- based on last discharge summary, should be on Clopidogrel 75 mg daily
and Rivaroxaban 2.5 mg BID -- spoke with vascular surgery Dr. Mccoy and Beatrice vascular TRANSPORT TANK TECHNICIAN, okay to change the Aspirin to Plavix -- previously was on Heparin Drip in lieu of Rivaroxaban -- has been getting Plavix 75 mg
daily -- since no procedures planned, stop Heparin Drip 02/03/25, and start Xarelto -- so continue Plavix and Xarelto
- Vascular surgery team requested that I consult podiatry -- consulted Dr. Tellez (as she has seen the patient in the past)
- Podiatry and vascular recommended amputation which the patient does not want to do -- I confirmed with Dr. Tellez and Dr. Murcia on 02/02/25 that no amputation is planned for the patient after
their discussion with the patient
Non-Anion Gap Metabolic Acidosis
- RESOLVED
- Likely from Normal Saline IV fluids
- Switched to LR IV fluids with resulting improvement
Diarrhea
C. Diff Antigen Positive, Toxin Negative
- Patient has been refusing IV antibiotics because of diarrhea -- confirmed with Dr. Tellez that patient does not need any further IV antibiotics for her foot
- Stool studies showed C. Diff antigen positive, toxin negative -- I confirmed with ID and infection control nurse that no precautions are needed for this
- Stool studies negative except C. Diff antigen positive, toxin negative
- Discussed (but not formal consult) the above result with ID who recommended PO Vancomycin 125 PO Q12H fro C. Diff prophylaxis (given that patient was on IV antibiotics) and Imodium for her diarrhea
- STOPPED PO Vanco since it has been almost a week since patient got IV Zosyn,
- GI consulted given persistent watery diarrhea despite Imodium -- gastroenterology reviewed with patient importance of proceeding with colonoscopy when Plavix can be held in 4-6 weeks
- GI sent message to [facility] office to arrange office visit for 4 weeks versus patient is from [place] and will review with PCP for GI closer to her home for evaluation
- GI re-evaluation appreciated 02/02/25: fiber and dietary measures resulted in improvement of diarrhea
Benign Hypertension
- Continue amlodipine with holding parameters. Adjust as needed.
ARETHA on CKD III
- SCr = 1.7-->1.6-->1.4-->1.5-->1.2-->1.3-->1.6 compared to known baseline of 1.4.
- Since Cr increased to 1.6 today, could be LALO from recent RLE angiogram, monitor BMP for another day
Anemia of Chronic Disease
- Stable. Hgb is at / near known baseline.
Hypothyroidism
- Continue current T4 replacement.
DVT Prophylaxis: IV heparin infusion
Code Status: DNR
I spoke over the phone to patient's daughter Tracie, on 02/02/25 and 02/03/25. I answered all of her questions and concerns to satisfaction.
Total time spent in caring for patient, including chart review, documentation, seeing and examining the patient, speaking with specialists, and speaking with patient's daughter, was greater than 55 minutes.
Anticipated Discharge: Within 24 hours
Subjective/Interval History
-
Date of Service: February 03, 2025
Patient was seen and examined. She reported that her fecal incontinence/diarrhea has resolved. She denied any other new symptoms or complaints.
Objective Data
-
Labs:
Laboratory Results
02/02/25 02/03/25
20:06 06:00
WBC Pending
Hgb Pending
Hct Pending
Plt Count Pending
APTT 105.7 H
Sodium Pending
Potassium Pending
Chloride Pending
Carbon Dioxide Pending
BUN Pending
Creatinine Pending
Glucose Pending
Calcium Pending
Vital Signs:
Vital Signs
Temp Pulse Resp BP Pulse Ox
98.0 F 88 16 144/70 93
02/03/25 08:05 02/03/25 08:05 02/03/25 08:05 02/03/25 08:05 02/03/25 08:05
I&O
02/02/25 02/03/25 02/04/25
06:59 06:59 06:59
Intake Total 1843 1080 / 1080
Balance 1843 1080 / 1080
[2025-02-03] MEDS: NORCO 5/325 1 TABLET PO ×2 (10:01→18:20)
[2025-02-03] MEDS: FLORASTOR 250 MG PO ×2 (10:02→21:12)
[2025-02-03] MEDS: PLAVIX 75 MG PO (10:02)
[2025-02-03] MEDS: NORVASC 5 MG PO (10:02)
[2025-02-03] MEDS: METAMUCIL, KONSYL 1 PACKET PO (10:02)
[2025-02-03] MEDS: NON-FORMULARY ITEM TOPICAL (10:06)
[2025-02-03 11:50] LABS: Hematocrit 25.9 % (37.0-47.0); Hemoglobin 8.4 g/dL (12.0-16.0); Mean Corp Hgb Conc. 32.4 g/dL (33.0-37.0); Mean Corpuscular Volume 99.6 fL (81.0-99.0); Platelet Count 297 10^3/uL (130-400); Red Cell Dist. Width 14.1 % (11.5-14.5)
[2025-02-03 11:51] VITALS: BP 144/63
[2025-02-03 12:35] LABS: Blood Urea Nitrogen 31 mg/dl (7-17); Calcium 8.7 mg/dl (8.4-10.2); Carbon Dioxide 27 mmol/L (22-30); Chloride 109 mmol/L (98-107); Estimated Creatinine Clearance 26 ml/min; Glucose 94 mg/dl (70-99); Potassium 5.3 mmol/L (3.5-5.1); Sodium 139 mmol/L (135-145); eGFR 32.00
--- NOTE | 2025-02-03 14:07 | W.PN.GI.CBS2 ---
Today's Communication / Plan
-
Doing better on metamucil, imodium, florastor
Continue regimen and I told pt if normal BMs at home, can d/c imodium
Will sign off. Please call back if needed
Assessment / Plan
-
Pt is a 84yo presents with HX ASCVD, PAD on chronic Plavix with( prior left popiteal/plantar artery bypass, angio, stent to SFA then toe amp of 5 th toe amp and metatarsal head 09/2024) , CKD, anemia of chronic disease, RA, hypothyroidism,
thyroidectomy, HTN with admission 01/26 with increased pain in right third toe with plan per vascular for RLE angio Wednesday but has complaints of diarrhea and asked to eval. Stool cx 01/27 neg and c-diff ag + tox neg. Pt currently on heparin gtt,
Plavix along with PO vanco and Zosyn (pt has refused since 01/27). In review with patient she admits to regular stools with BM every several days. Since admission she now noted with diarrhea but in review with staff concern for incontinence of
small amount of brown stool with mucous. No hx EGD or colonoscopy in past. no recent travel, abx or sick contacts.
-incontinence with small amounts of brown mucosa stool
-anemia - iron studies not consistent with iron deficiency
-c-diff ag + tox neg
-concern for irregularity on rectal exam at tip of finger not noted on follow up exam and anoscopy
-PAD with concern for chronic limb ischemia RLQ with toe gangrene
other med problems:
ASCVD,hx prior left popiteal/plantar artery bypass, angio, stent to SFA then toe amp of 5 th toe amp and metatarsal head 09/2024 , CKD, anemia of chronic disease, RA, hypothyroidism, thyroidectomy, HTN
Subjective
Subjective
Date of Service: February 03, 2025
Having formed BMs now. Feels better
Objective
Data Reviewed
Laboratory Data:
Laboratory Results
02/03/25 11:25
02/03/25 11:25
Laboratory Results
APTT 105.7 Sec (23.4-35.0) H 02/02/25 20:06
Magnesium 1.9 mg/dl (1.6-2.3) 01/31/25 09:42
Total Bilirubin 0.4 mg/dl (0.2-1.3) 01/26/25 15:45
AST 20 U/L (14-36) 01/26/25 15:45
ALT 21 U/L (0-35) 01/26/25 15:45
Alkaline Phosphatase 85 U/L (38-126) 01/26/25 15:45
Vital Signs and I&O:
Vital Signs
Temp Pulse Resp BP Pulse Ox
98.5 F 84 18 144/63 94
02/03/25 11:51 02/03/25 11:51 02/03/25 11:51 02/03/25 11:51 02/03/25 11:51
I&O
02/02/25 02/03/25 02/04/25
06:59 06:59 06:59
Intake Total 1843 1080 / 1080
Balance 1843 1080 / 1080
Physical Exam
Physical Exam
GI: Soft, Non Distended and Non Tender
[2025-02-03] MEDS: TYLENOL 650 MG PO (14:25)
[2025-02-03 15:03] VITALS: BP 134/67
[2025-02-03 19:00] VITALS: BP 132/53
[2025-02-03] MEDS: XARELTO 2.5 MG PO (21:11)
[2025-02-03] MEDS: REMOVE LIDOCAINE PATCH REMOVE (21:14)
[2025-02-03 23:00] VITALS: BP 141/64
[2025-02-03] MEDS: MELATONIN 5 MG PO (23:07)
[2025-02-03] MEDS: DILAUDID 0.5 MG IV (23:38)
[2025-02-04] MEDS: SYNTHROID 125 MCG PO (05:09)
[2025-02-04] MEDS: DILAUDID 0.5 MG IV ×2 (07:29→13:55)
[2025-02-04 07:30] VITALS: BP 133/59
[2025-02-04] MEDS: NORVASC 5 MG PO (07:32)
[2025-02-04] MEDS: PLAVIX 75 MG PO (07:32)
[2025-02-04] MEDS: NON-FORMULARY ITEM TOPICAL (07:37)
[2025-02-04] MEDS: FLORASTOR 250 MG PO (07:37)
[2025-02-04] MEDS: METAMUCIL, KONSYL 1 PACKET PO (07:37)
[2025-02-04] MEDS: XARELTO 2.5 MG PO (07:37)
[2025-02-04 12:48] LABS: Hematocrit 27.0 % (37.0-47.0); Hemoglobin 8.9 g/dL (12.0-16.0); Mean Corp Hgb Conc. 33.0 g/dL (33.0-37.0); Mean Corpuscular Volume 99.6 fL (81.0-99.0); Platelet Count 327 10^3/uL (130-400); Red Cell Dist. Width 14.2 % (11.5-14.5)
[2025-02-04 13:00] LABS: Blood Urea Nitrogen 31 mg/dl (7-17); Calcium 8.9 mg/dl (8.4-10.2); Carbon Dioxide 25 mmol/L (22-30); Chloride 109 mmol/L (98-107); Estimated Creatinine Clearance 30 ml/min; Glucose 98 mg/dl (70-99); Magnesium 1.9 mg/dl (1.6-2.3); Potassium 5.2 mmol/L (3.5-5.1); Sodium 136 mmol/L (135-145); eGFR 37.56
--- NOTE | 2025-02-04 13:57 | W.PN.HOSP.TC ---
Today's Communication/Plan
-
Discharge today
Assessment / Plan
Assessment / Plan
Physical Exam
General: Not in acute distress
HEENT: Moist mucous membranes
Respiratory: Clear to Auscultation Bilaterally
Cardiac: S1/S2 and Regular Rhythm
GI: Soft, Non Tender, Non Distended and Normal Bowel Sounds
Musculoskeletal: Other (Erythema and mild edema of the R forefoot and all toes. Pulses not appreciable on exam. R 3rd toe with necrotic change of distal tip.)
Neuro: AO x 3
Assessment/Plan
84 y/o female with past medical history significant for ASCVD/PAD, hypertension and hypothyroidism who presented to [facility] emergency room complaining of right foot pain x several weeks. Patient stated that her symptoms initially started in October 2024
when she banged her foot into a chair leg. Her symptoms had persisted / progressed since that time. She had been followed by her usual Family Practice Md - Dr. Breen - who started her on ciprofloxacin about 4-5 days prior to presentation. She had noted no
improvement in her symptoms and on 01/25/25, Dr. Breen advised her to present to [facility] ED for further evaluation. At the time of admission, patient denied any systemic complaints including fevers / chills, N/V/D, etc.
Patient was last hospitalized at [facility] in September 2024 when she underwent revascularization of the LLE (Dr. Mrucia) and amputation of the L 5th toe / MT head (Dr. Lafleur).
ASCVD / PAD
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
Post-Op Day 6 Bypass and SFA/pop stent
- Patient denied any anticoagulants or antiplatelet agents despite prior med list and history
- Vascular Surgery evaluation for additional recommendations / possible ischemic evaluation and intervention.
- Continue IV heparin infusion for now.
- Needs IV antibiotics coverage with Zosyn given right foot erythema -- although patient has been refusing antibiotics, she appears to be doing okay without antibiotics right now -- can hold off on antibiotics for
now -- I confirmed with combatant diver officer Dr. Tellez that patient does not need antibiotics
- Monitor very closely for any worsening signs or symptoms of infection, including in the right foot
- Follow pulse checks / vascular checks.
- Will likely require amputation of R 3rd toe as well (? Vascular v Podiatry - prior digital amputation by Dr. Lafleur).
- RLE agram 01/31/25: it showed no endovascular options
- Baby Aspirin was started on admission. Suspect that patient is supposed to be on some anticoagulant / antiplatelet regimen - though she denied this -- based on last discharge summary, should be on Clopidogrel 75 mg daily
and Rivaroxaban 2.5 mg BID -- spoke with vascular surgery Dr. Mccoy and Beatrice vascular PATHOLOGY SECRETARY, okay to change the Aspirin to Plavix -- previously was on Heparin Drip in lieu of Rivaroxaban -- has been getting Plavix 75 mg
daily -- since no procedures planned, stop Heparin Drip 02/03/25, and start Xarelto -- so continue Plavix and Xarelto
- Vascular surgery team requested that I consult podiatry -- consulted Dr. Tellez (as she has seen the patient in the past)
- Podiatry and vascular recommended amputation which the patient does not want to do -- I confirmed with Dr. Tellez and Dr. Murcia on 02/02/25 that no amputation is planned for the patient after
their discussion with the patient
Non-Anion Gap Metabolic Acidosis
- RESOLVED
- Likely from Normal Saline IV fluids
- Switched to LR IV fluids with resulting improvement
Fecal Incontinence
C. Diff Antigen Positive, Toxin Negative
- I confirmed with the patient on 02/03/25 that she has no alarm symptoms related to fecal incontinence, patient denied low back or perineal pain, patient denied motor or sensory symptoms in the lower extremities, and patient
denied urinary incontinence. Seems like stool incontinence was there before prior to hospitalization, but was worsened with antibiotics (oral and IV) in hospital. There is no dark black color or bright red blood in the stool.
- Patient has been refusing IV antibiotics because of diarrhea -- confirmed with Dr. Tellez that patient does not need any further IV antibiotics for her foot
- Stool studies negative except that C. Diff antigen positive, toxin negative
- Discussed (but not formal consult) the above result with ID who recommended PO Vancomycin 125 PO Q12H fro C. Diff prophylaxis (given that patient was on IV antibiotics) and Imodium for her diarrhea
- STOPPED PO Vanco since it was almost a week since patient got IV Zosyn (had been refusing, and in the end it was determined she didn't need it anyway since erythema in right foot seems to have improved without further
antibiotics)
- GI consulted given persistent watery diarrhea despite Imodium -- gastroenterology reviewed with patient importance of proceeding with colonoscopy when Plavix can be held in 4-6 weeks
- GI sent message to [facility] office to arrange office visit for 4 weeks versus patient is from [place] and will review with PCP for GI closer to her home for evaluation
- GI re-evaluation appreciated 02/02/25: fiber and dietary measures resulted in improvement of fecal incontinence
- As of 02/04/25: patient is happy with improvement in fecal incontinence and feels that she is ready to go home today -- I explained to her that she needs close outpatient follow-up for a colonoscopy,
and I also explained to her that she may still have some stool leakage from time to time
Benign Hypertension
- Continue amlodipine with holding parameters. Adjust as needed.
ARETHA on CKD III
- SCr = 1.7-->1.6-->1.4-->1.5-->1.2-->1.3-->1.6 (increase was suspected from LALO from angiogram)-->1.4 (compared to known baseline of 1.4).
- Recheck BMP outpatient
Anemia of Chronic Disease
- Stable. Hgb is at / near known baseline.
Hypothyroidism
- Continue current T4 replacement.
DVT Prophylaxis: IV heparin infusion
Code Status: DNR
I spoke over the phone to patient's daughter Tracie, on 02/02/25, 02/03/25 and 02/04/25. I answered all of her questions and concerns to satisfaction.
More than 30 minutes spent in discharge including
Final examination of the patient
Summarizing hospital stay
Instructions for continuing care to all relevant caregivers
Preparation of discharge records, prescriptions, and referral forms
Total time spent (in minutes): 50
Anticipated Discharge: Today
Subjective/Interval History
-
Date of Service: February 04, 2025
Patient was seen and examined. She reported that although she had some stool incontinence earlier today, it was relatively small in amount, and it has significantly improved compared to a couple of days ago. She is happy with progress and she stated
she feels ready to go home today.
Objective Data
-
Labs:
Laboratory Results
02/04/25
12:27
WBC 8.2
Hgb 8.9 L
Hct 27.0 L
Plt Count 327
Sodium 136
Potassium 5.2 H
Chloride 109 H
Carbon Dioxide 25
BUN 31 H
Creatinine 1.4 H
Glucose 98
Calcium 8.9
Vital Signs:
Vital Signs
Temp Pulse Resp BP Pulse Ox
98.1 F 91 18 133/59 93
02/04/25 07:30 02/04/25 07:30 02/04/25 07:30 02/04/25 07:30 02/04/25 08:00
I&O
02/03/25 02/04/25 02/05/25
06:59 06:59 06:59
Intake Total 1080 / 1080 900 / 900
Balance 1080 / 1080 900 / 900
--- NOTE | 2025-02-04 14:10 | CM ---
Pt is cleared for discharge to home today. [facility] will resume services after discharge.
[facility]
[2025-02-04] MEDS: LOKELMA 10 GRAM PO (14:55)
[2025-02-04 16:00] VITALS: BP 130/75
== END 2025-02-04 16:34 | disposition home health service (06) | DRG 300 ==
LOC: 3 WEST ACU 21:55
PROVIDERS: Nurse Practitioner Acute Care; Surgery Vascular Surgery; ADMITTING PHYSICIAN Hospitalist; ATTENDING PHYSICIAN Hospitalist; CONSULT PHYSICIAN Internal Medicine; CONSULT PHYSICIAN Podiatrist Foot & Ankle Surgery; EMERGENCY PHYSICIAN Emergency Medicine; FAMILY PHYSICIAN Family Medicine; OTHER PHYSICIAN Surgery
PROC: B41C1ZZ Fluoroscopy of Pelvic Arteries using Low Osmolar Contrast (ICD-10-PCS; 2025-01-31)
PROC: B4101ZZ Fluoroscopy of Abdominal Aorta using Low Osmolar Contrast (ICD-10-PCS; 2025-01-31)
PROC: B41F1ZZ Fluoroscopy of Right Lower Extremity Arteries using Low Osmolar Contrast (ICD-10-PCS; 2025-01-31)
PROC: B41G1ZZ Fluoroscopy of Left Lower Extremity Arteries using Low Osmolar Contrast (ICD-10-PCS; 2025-01-31)
DX: I70.261 Atherosclerosis of native arteries of extremities with gangrene, right leg (principal); N17.9 Acute kidney failure, unspecified; I25.10 Atherosclerotic heart disease of native coronary artery without angina pectoris; N18.30 Chronic kidney disease, stage 3 unspecified; I12.9 Hypertensive chronic kidney disease with stage 1 through stage 4 chronic kidney disease, or unspecified chronic kidney disease; E89.0 Postprocedural hypothyroidism; D63.1 Anemia in chronic kidney disease; Z66 Do not resuscitate; M06.9 Rheumatoid arthritis, unspecified; Z87.891 Personal history of nicotine dependence; Z88.1 Allergy status to other antibiotic agents; Z88.2 Allergy status to sulfonamides; Z79.899 Other long term (current) drug therapy; Z79.890 Hormone replacement therapy; Z88.8 Allergy status to other drugs, medicaments and biological substances; Z79.01 Long term (current) use of anticoagulants; Z79.02 Long term (current) use of antithrombotics/antiplatelets
CPT/HCPCS: 36247; 73630; 75625; 75710; 80048; 80053; 80061; 82040; 82728; 83540; 83550; 83605; 83735; 85025; 85027; 85730; 87040; 87045; 87046; 87324; 87427; 87449; 93922; 93925; 97116; 97162; 99285; C1769; C1894; Q9967

== ENCOUNTER 2025-03-21 08:22 | Inpatient (IN) | payer MEDICARE, SELFPAY ==
[2025-03-21] VITALS (19 sets, daily range): BP systolic 89–159; BP diastolic 38–78; BMI 26.6; BMI 24.4
[2025-03-21 09:13] LABS: INR 1.16; PT 14.6 Sec (11.4-14.6)
[2025-03-21 09:14] LABS: APTT 31.5 Sec (23.4-35.0)
[2025-03-21 09:38] LABS: Blood Urea Nitrogen 35 mg/dl (7-17); Calcium 9.3 mg/dl (8.4-10.2); Carbon Dioxide 16 mmol/L (22-30); Chloride 111 mmol/L (98-107); Estimated Creatinine Clearance 24 ml/min; Glucose 90 mg/dl (70-99); Potassium 4.8 mmol/L (3.5-5.1); Sodium 138 mmol/L (135-145); eGFR 34.36
[2025-03-21 09:49] LABS: Hematocrit 29.6 % (37.0-47.0); Hemoglobin 9.6 g/dL (12.0-16.0); Mean Corp Hgb Conc. 32.4 g/dL (33.0-37.0); Mean Corpuscular Volume 102.4 fL (81.0-99.0); Platelet Count 371 10^3/uL (130-400); Red Cell Dist. Width 14.4 % (11.5-14.5)
[2025-03-21] MEDS: PERIDEX 0.12% ORAL RINSE 15 ML PO (10:18)
[2025-03-21] MEDS: BACTROBAN NASAL 1 GRAM NASAL (10:19)
[2025-03-21] MEDS: NSS 500 IV (10:19)
[2025-03-21] MEDS: DILAUDID 0.25 MG IV (12:49)
[2025-03-21] MEDS: ZOFRAN 4 MG IV (12:50)
[2025-03-21] MEDS: DILAUDID PCA 30 IV (13:35)
--- NOTE | 2025-03-21 13:53 | OR.RPT ---
Operative Report
Operative Report
PROCEDURE DATE: 03/21/2025
Preoperative diagnosis: Gangrene right foot. Non reconstructable distal arterial disease.
Postoperative diagnosis: Same
Procedure: Right above the knee amputation
Surgeon: Twin
Claims Coordinator: CHARLES Medina, required for all aspects of procedure including assistance with traction/countertraction, assistance with closure.
Complications: None
Anesthesia: General
Indications for procedure:
Gangrene right foot. Severe ischemic rest pain. Poor peripheral perfusion. No revascularizable options. Risk/benefits/alternatives of amputation fully discussed. Discussed [id number] due to severely edematous, poor tissue below the knee.
Patient understood all wished to proceed.
Description of procedure:
Patient was identified brought to the operating room placed on the table in supine position. After the adequate administration of anesthesia and perioperative antibiotics she was prepped and draped in the standard surgical fashion. A standard
preoperative timeout was undertaken and everybody was in agreement the plan.
Standard anterior/posterior fishmouth type incisions were made just above the knee in the distal thigh through the skin with a 15 blade. Incision was carried through skin subcutaneous tissue with the electrocautery. Medially in the deeper
subcutaneous tissue, the greater saphenous vein was clipped and divided. Dissection continued circumferentially around the distal thigh. Electrocautery was used to dissect through the fascial layer and then through the muscle surrounding the
femur. The anterior tissues/muscles were all transected using electrocautery. Similarly the posterior muscles were all divided (as well as tenderness structures). Once full circumferential muscle division was undertaken, the popliteal artery was
carefully dissected and ligated proximally with heavy silk ties as well as a silk suture ligature. Distally was ligated with a heavy silk tie. It was then transected. Similarly the vein was ligated with heavy silk suture ligatures proximally
distally and then transected. The sciatic vein was then cut high in the field and allowed to retract. Now all circumferential structures had been transected. Periosteum was elevated off the bone. The femur was then transected a few centimeters
proximal to the anticipated skin closure site. This was done with an oscillating saw. The leg specimen was then removed. The femur was then beveled on its anterior surface using an oscillating saw to avoid any points like prominence/pressure. A
rasp was used to smooth the edges of the femur. Next the tissues were inspected for full hemostasis. Tissues were copiously irrigated. 2-0 Vicryl [id number] suture was used to bury the popliteal artery/vein almost performing a mild pexy type
bearing of the stumps. At this point, we confirmed hemostasis. We then closed the fascial layer using interrupted 0 Vicryl suture. We then ran 3-0 Vicryl deep dermal layer. Skin clips were applied. Bulky dressings were applied. The patient
tolerated the procedure well. All sponge, needle, instrument counts were correct at the end of the case. Patient was transported recovery room in stable condition.
[2025-03-21 14:22] LABS: Hematocrit 28.1 % (37.0-47.0); Hemoglobin 8.7 g/dL (12.0-16.0); Mean Corp Hgb Conc. 31.0 g/dL (33.0-37.0); Mean Corpuscular Volume 107.7 fL (81.0-99.0); Platelet Count 330 10^3/uL (130-400); Red Cell Dist. Width 14.2 % (11.5-14.5)
[2025-03-21 14:46] LABS: Blood Urea Nitrogen 35 mg/dl (7-17); Calcium 8.9 mg/dl (8.4-10.2); Carbon Dioxide 16 mmol/L (22-30); Chloride 112 mmol/L (98-107); Estimated Creatinine Clearance 27 ml/min; Glucose 128 mg/dl (70-99); Potassium 4.6 mmol/L (3.5-5.1); Sodium 138 mmol/L (135-145); eGFR 40.80
[2025-03-21] MEDS: NSS 1000 IV (15:46)
--- NOTE | 2025-03-21 17:08 | PTCARENOTE ---
Patient received from PACU. VSS. Patient placed on tele and continuous pulse ox. AKA site CDI.
[2025-03-21] MEDS: HEPARIN 5000 UNITS SC (19:53)
[2025-03-22 03:23] VITALS: BP 148/73
[2025-03-22] MEDS: NSS 1000 IV (03:37)
[2025-03-22] MEDS: SYNTHROID 125 MCG PO (05:32)
[2025-03-22 06:26] LABS: Hematocrit 24.0 % (37.0-47.0); Hemoglobin 7.9 g/dL (12.0-16.0); Mean Corp Hgb Conc. 32.9 g/dL (33.0-37.0); Mean Corpuscular Volume 104.3 fL (81.0-99.0); Platelet Count 330 10^3/uL (130-400); Red Cell Dist. Width 14.1 % (11.5-14.5)
[2025-03-22 06:49] LABS: Blood Urea Nitrogen 30 mg/dl (7-17); Calcium 8.7 mg/dl (8.4-10.2); Carbon Dioxide 16 mmol/L (22-30); Chloride 115 mmol/L (98-107); Estimated Creatinine Clearance 32 ml/min; Glucose 131 mg/dl (70-99); Potassium 4.9 mmol/L (3.5-5.1); Sodium 138 mmol/L (135-145); eGFR 49.86
[2025-03-22] MEDS: XARELTO 2.5 MG PO ×2 (07:58→20:35)
[2025-03-22] MEDS: VITAMIN B-12 1000 MCG PO (07:59)
[2025-03-22] MEDS: HEPARIN 5000 UNITS SC ×2 (07:59→20:34)
[2025-03-22] MEDS: NORVASC 5 MG PO (07:59)
[2025-03-22] MEDS: PLAVIX 75 MG PO (07:59)
[2025-03-22 08:00] VITALS: BP 158/70
[2025-03-22] MEDS: NON-FORMULARY ITEM 1 UNIT TOPICAL ×2 (08:01→21:04)
[2025-03-22 11:00] VITALS: BP 136/61
--- NOTE | 2025-03-22 13:08 | W.PN.VS ---
Addendum entered and electronically signed by Casey Murcia MD 03/22/25 15:57:
Seen and examined with CHARLES Cohen. Agree with findings and plan as noted below. Patient is feeling much better and in much better spirits. She notes that she is not having significant pain at the amputation site. Her preoperative rest pain was
unbearable and now she feels much better. Her dressing has dried blood staining on it, but no active bleeding. Site is soft. Plan/as discussed and noted below. Repeat hemoglobin in AM. If continues to be low will transfuse.
Original Note:
Today's Communication / Plan
-
Seen and assessed with Dr. Murcia
Assessment/Plan
-
Postop day 1 right AKA
Plan:
DC Nuñez
DC IV fluids
Transition [facility] ROOM to p.o. pain medication
PT/OT
Will add Benadryl for sleep per patient's request
Dressing will remain intact until tomorrow-if increased drainage please call
Subjective Data
-
Date of Service: March 22, 2025
Patient seen at bedside this a.m. with Dr. Murcia. Patient offers no complaints at this time. No events overnight. Denies pain.
Objective Data
-
Vital Signs
Temp Pulse Resp BP Pulse Ox
98.6 F 98 16 136/61 95
03/22/25 11:00 03/22/25 11:00 03/22/25 11:00 03/22/25 11:00 03/22/25 11:00
Intake and Output
03/21/25 03/22/25 03/23/25
06:59 06:59 06:59
Intake Total 1540 / 1540
Output Total 1425 / 1425
Balance 115 / 115
Intake:
Oral fluids 480 / 480
IV fluids (Total) 1060 / 1060
NSS 100 / 100
Output:
Urine, Nuñez 1425 / 1425
Lab Results
03/22/25 06:01
03/22/25 06:01
Calcium 8.7 mg/dl (8.4-10.2) 03/22/25 06:01
Physical Exam
-
AO x 3
No tachypnea on room air
No tachycardia
Abdomen soft
Stump site dressing with minimal drainage
Stump soft
[2025-03-22] MEDS: DILAUDID 4 MG PO (14:49)
[2025-03-22 15:00] VITALS: BP 143/63
--- NOTE | 2025-03-22 16:01 | CM ---
Patient seen at bedside in [address] [place] [address]. Patient stated that she has been to [facility] and does not want to return there. Patient would like to go to [place] if appropriate. Patient lives in apartment behind [facility]. Patient has a rollator and
she uses Dr. Brandon and Ashlie in [place]. Patient plan is for acute rehab at this time. CM will send referral for [facility] pending pt/ot assessment and medical treatment plan. CM will continue to follow for discharge planning needs.
Plan; [facility] pending medical treatment plan
[2025-03-22] MEDS: DILAUDID 0.5 MG IV ×2 (17:58→22:26)
[2025-03-22 19:07] VITALS: BP 141/57
[2025-03-22 23:17] VITALS: BP 145/67
[2025-03-23] VITALS (11 sets, daily range): BP systolic 133–159; BP diastolic 61–84
[2025-03-23] MEDS: ROXICODONE 5 MG PO ×3 (02:00→17:32)
[2025-03-23] MEDS: DILAUDID 0.5 MG IV ×4 (05:06→20:15)
[2025-03-23] MEDS: SYNTHROID 125 MCG PO (05:07)
[2025-03-23 06:22] LABS: Hematocrit 23.2 % (37.0-47.0); Hemoglobin 7.2 g/dL (12.0-16.0); Mean Corp Hgb Conc. 31.0 g/dL (33.0-37.0); Mean Corpuscular Volume 103.1 fL (81.0-99.0); Platelet Count 298 10^3/uL (130-400); Red Cell Dist. Width 14.4 % (11.5-14.5)
[2025-03-23 06:39] LABS: Blood Urea Nitrogen 34 mg/dl (7-17); Calcium 8.7 mg/dl (8.4-10.2); Carbon Dioxide 18 mmol/L (22-30); Chloride 113 mmol/L (98-107); Estimated Creatinine Clearance 29 ml/min; Glucose 89 mg/dl (70-99); Magnesium 1.9 mg/dl (1.6-2.3); Potassium 4.3 mmol/L (3.5-5.1); Sodium 138 mmol/L (135-145); eGFR 44.91
[2025-03-23] MEDS: XARELTO 2.5 MG PO ×2 (08:01→20:16)
[2025-03-23] MEDS: NORVASC 5 MG PO (08:01)
[2025-03-23] MEDS: PLAVIX 75 MG PO (08:01)
[2025-03-23] MEDS: VITAMIN B-12 1000 MCG PO (08:01)
[2025-03-23] MEDS: NON-FORMULARY ITEM 1 UNIT TOPICAL (08:03)
[2025-03-23] MEDS: HEPARIN 5000 UNITS SC ×2 (08:04→20:16)
--- NOTE | 2025-03-23 08:29 | W.PN.VS ---
Addendum entered and electronically signed by Wesley Nuñez III, MD 03/23/25 13:08:
This patient was seen and examined in collaboration with JANETT Cowan. I agree with the history and physical exam as well as the assessment and plan. I have the following additions:
Amputation site is clean and dry
Dressing reapplied
Signed:
Wesley Nuñez III, MD
Vascular Surgery
[facility]
Original Note:
Today's Communication / Plan
-
Seen and assessed with Dr. Nuñez
Assessment/Plan
-
Postop day 2 right AKA
Plan:
Pain control
PT/OT
Daily dry dressing change with Elier wrap
Dispo planning
Subjective Data
-
Date of Service: March 23, 2025
Patient seen at bedside this a.m. with Dr. Nuñez. Patient states she is doing well. Offers no complaints at this time. No events overnight.
Objective Data
-
Vital Signs
Temp Pulse Resp BP Pulse Ox
98.6 F 93 16 159/72 94
03/23/25 07:32 03/23/25 08:01 03/23/25 07:32 03/23/25 08:01 03/23/25 07:32
Intake and Output
03/22/25 03/23/25 03/24/25
06:59 06:59 06:59
Intake Total 1540 / 1540 960 / 960
Output Total 1425 / 1425 640 / 640
Balance 115 / 115 320 / 320
Intake:
Oral fluids 480 / 480 660 / 660
IV fluids (Total) 1060 / 1060 300 / 300
NSS 100 / 100
Output:
UrineJoaquin 1425 / 1425 400 / 400
Urine, Voided 240 / 240
Other:
Number of approximated MODERATE 5
amounts of urine
Number of unmeasured liquid
stools
Rectum 1
Lab Results
03/23/25 06:00
03/23/25 06:00
Calcium 8.7 mg/dl (8.4-10.2) 03/23/25 06:00
Magnesium 1.9 mg/dl (1.6-2.3) 03/23/25 06:00
Physical Exam
-
AO x 3
No tachypnea on room air
No tachycardia
Abdomen soft
Stump site dressing with minimal drainage-removed at bedside
Sailaja well-approximated with no active drainage noted
Stump soft, no edema
--- NOTE | 2025-03-23 13:44 | CM ---
Addendum entered by Marleny Doe 03/23/25 14:41:
CM reviewed with patient options with [facility], Patient anxious about PT/OT assessment and concerned about being able to be independent when discharged. Emotional supports provided. CM will continue to follow for discharge planning needs.
Plan; Pending PT/OT assessment [facility] pending bed availability
Original Note:
CM spoke with [facility] liaison today. No beds available at [facility], bed would be available at [facility] in [place] if patient would accept. CM will review with physician and patient.
--- NOTE | 2025-03-23 15:37 | PN.CDI ---
CDI
- -
CDI:
Physician Documentation Request
Admit Date: 03/21/25 08:22
Dear Vascular Surgery,
Clinical Indicators:
Patient admitted with Gangrene right foot; s/p Right AKA.
PMH includes CKD
Cr/GFR trend
03/21/25 03/21/25 03/22/25
08:37 14:14 06:01
Creatinine 1.5 H 1.3 H 1.1 H
eGFR 34.36 40.80 49.86
03/23/25
06:00
Creatinine 1.2 H
eGFR 44.91
Please clarify the stage of CKD:
CKD 3b
CKD 3a
Other, please specify
Stages of Chronic Kidney Disease*
Level Description GFR
G1 Normal or High >90
G2 Mildly decreased 60-89
G3a Mildly to moderately decreased 45-59
G3b Moderately to severely decreased 30-44
G4 Severely decreased 15-29
G5 Kidney failure <15
Use of terms such as suspected, likely, concern for, or probable (associated with a specific diagnosis that is being evaluated, monitored, or treated as if it exists) are acceptable and can be coded in the inpatient setting, when documented at the
time of discharge.
Thank you,
MADISON Ravi RN
CDI Specialist
available via tiger text
Please use your independent medical judgment in providing your response.
*Source: Kidney Disease: Improving Global Outcomes (KDIGO) 2012
--- NOTE | 2025-03-23 15:44 | PN.CDI ---
CDI
- -
CDI:
Physician Documentation Request
Admit Date: 03/21/25 08:22
Dear Vascular Surgery,
Clinical Indicators:
Patient admitted with gangrene right foot; s/p Right AKA.
PMH includes CKD
03/23 Anesthesia Report, EBL: 20 ml
03/23 PRBCs 2 units ordered.
Hgb/Hct trend:
03/21/25 03/21/25 03/22/25
09:38 14:14 06:01
Hgb 9.6 L 8.7 L 7.9 L
Hct 29.6 L 28.1 L 24.0 L
03/23/25
06:00
Hgb 7.2 L
Hct 23.2 L
Based on the above, could you clarify in the progress notes, the appropriate diagnosis, if significant, that supports the above abnormalities and additional evaluation, monitoring and/or treatment rendered:
Acute blood loss anemia with baseline chronic anemia
Chronic baseline anemia only
Other, please specify
Use of terms such as suspected, likely, concern for, or probable (associated with a specific diagnosis that is being evaluated, monitored, or treated as if it exists) are acceptable and can be coded in the inpatient setting, when documented at the
time of discharge.
Thank you,
MADISON Ravi RN
CDI Specialist
available via tiger text
Please use your independent medical judgment in providing your response.
--- NOTE | 2025-03-23 15:56 | W.PN.UPDATE ---
Update Note
Progress Note Update
CDI:
Clinical Indicators:
Patient admitted with Gangrene right foot; s/p Right AKA.
PMH includes CKD
Cr/GFR trend
03/21/25 03/21/25 03/22/25
08:37 14:14 06:01
Creatinine 1.5 H 1.3 H 1.1 H
eGFR 34.36 40.80 49.86
03/23/25
06:00
Creatinine 1.2 H
eGFR 44.91
Please clarify the stage of CKD:
CKD 3b
--- NOTE | 2025-03-23 15:57 | W.PN.UPDATE ---
Update Note
Progress Note Update
CDI:
Clinical Indicators:
Patient admitted with gangrene right foot; s/p Right AKA.
PMH includes CKD
03/23 Anesthesia Report, EBL: 20 ml
03/23 PRBCs 2 units ordered.
Hgb/Hct trend:
03/21/25 03/21/25 03/22/25
09:38 14:14 06:01
Hgb 9.6 L 8.7 L 7.9 L
Hct 29.6 L 28.1 L 24.0 L
03/23/25
06:00
Hgb 7.2 L
Hct 23.2 L
Based on the above, could you clarify in the progress notes, the appropriate diagnosis, if significant, that supports the above abnormalities and additional evaluation, monitoring and/or treatment rendered:
Acute blood loss anemia with baseline chronic anemia, likely d/t open surgical procedure, PRBC given, continuing to monitor
[2025-03-23 20:22] LABS: Hematocrit 33.0 % (37.0-47.0); Hemoglobin 10.6 g/dL (12.0-16.0); Mean Corp Hgb Conc. 32.1 g/dL (33.0-37.0); Mean Corpuscular Volume 100.3 fL (81.0-99.0); Platelet Count 262 10^3/uL (130-400); Red Cell Dist. Width 17.4 % (11.5-14.5)
[2025-03-24] VITALS (7 sets, daily range): BP systolic 130–158; BP diastolic 65–98; PULSE 96; O2SAT 96
[2025-03-24] MEDS: DILAUDID 0.5 MG IV ×5 (00:17→20:02)
[2025-03-24] MEDS: SYNTHROID 125 MCG PO (05:00)
--- NOTE | 2025-03-24 06:58 | W.PN.VS ---
Addendum entered and electronically signed by Wesley Nuñez III, MD 03/24/25 07:07:
This patient was seen and examined in collaboration with JNAETT Cowan. I agree with the history and physical exam as well as the assessment and plan.
Signed:
Wesley Nuñez III, MD
Vascular Surgery
[facility]
Original Note:
Today's Communication / Plan
-
Seen and assessed with Dr. Nuñez
Assessment/Plan
-
Postop day 3 right AKA
Plan:
Hgb stable
Pain control
PT/OT
Daily dry dressing change with Elier wrap
Dispo planning
Subjective Data
-
Date of Service: March 24, 2025
Pt seen at bedside this am with Dr Nuñez. Pt offers no complaints at this time. No events overnight.
Objective Data
-
Vital Signs
Temp Pulse Resp BP Pulse Ox
98.4 F 85 16 146/69 94
03/24/25 03:21 03/24/25 03:21 03/24/25 03:21 03/24/25 03:21 03/24/25 03:21
Intake and Output
03/22/25 03/23/25 03/24/25
06:59 06:59 06:59
Intake Total 1540 / 1540 960 / 960 980 / 980
Output Total 1425 / 1425 640 / 640
Balance 115 / 115 320 / 320 980 / 980
Intake:
Oral fluids 480 / 480 660 / 660 480 / 480
IV fluids (Total) 1060 / 1060 300 / 300
NSS 100 / 100
Blood Product Amount Infused ( 500 / 500
mL)
Packed Rbc Leukoreduced Unit 250 / 250
[id number]
Packed Rbc Leukoreduced Unit 250 / 250
[id number]
Output:
Urine, Nuñez 1425 / 1425 400 / 400
Urine, Voided 240 / 240
Other:
How many times incontinent 2
SATURATED amount urine
Number of approximated SMALL 3
amounts of urine
Number of approximated MODERATE 5
amounts of urine
Number of approximated LARGE 2
amounts of urine
Number of unmeasured liquid
stools
Rectum 1
Lab Results
03/23/25 20:03
03/23/25 06:00
Calcium 8.7 mg/dl (8.4-10.2) 03/23/25 06:00
Magnesium 1.9 mg/dl (1.6-2.3) 03/23/25 06:00
Physical Exam
-
AO x 3
No tachypnea on room air
No tachycardia
Abdomen soft
Stump site dressing clean, dry, intact
Stump soft, no edema
[2025-03-24] MEDS: FLUSH (NSS) 2 FLUSH IV ×2 (08:34→12:29)
[2025-03-24] MEDS: DULCOLAX 10 MG RECTAL (08:34)
[2025-03-24] MEDS: VITAMIN B-12 1000 MCG PO (08:34)
[2025-03-24] MEDS: PLAVIX 75 MG PO (08:35)
[2025-03-24] MEDS: XARELTO 2.5 MG PO ×2 (08:35→20:01)
[2025-03-24] MEDS: NORVASC 5 MG PO (08:35)
[2025-03-24] MEDS: HEPARIN 5000 UNITS SC ×2 (08:35→20:01)
[2025-03-24] MEDS: NON-FORMULARY ITEM 1 UNIT TOPICAL (08:39)
[2025-03-24] MEDS: ROXICODONE 5 MG PO (14:40)
[2025-03-25] MEDS: DILAUDID 0.5 MG IV ×5 (01:23→18:05)
[2025-03-25 03:09] VITALS: BP 132/69
[2025-03-25] MEDS: SYNTHROID 125 MCG PO (05:27)
[2025-03-25 07:15] VITALS: BP 139/74
--- NOTE | 2025-03-25 08:24 | W.PN.UPDATE ---
Update Note
Progress Note Update
No complaints
Pain well controlled
No events overnight
Discharge planning
PT
[id number]
Vascular Surgery
[2025-03-25] MEDS: VITAMIN B-12 1000 MCG PO (08:51)
[2025-03-25] MEDS: NORVASC 5 MG PO (08:51)
[2025-03-25] MEDS: XARELTO 2.5 MG PO ×2 (08:52→20:54)
[2025-03-25] MEDS: HEPARIN 5000 UNITS SC ×2 (08:52→20:55)
[2025-03-25] MEDS: PLAVIX 75 MG PO (08:52)
[2025-03-25] MEDS: NON-FORMULARY ITEM 1 UNIT TOPICAL (08:53)
[2025-03-25 11:34] VITALS: BP 147/67
[2025-03-25] MEDS: ROXICODONE 5 MG PO ×3 (12:49→20:54)
[2025-03-25] MEDS: FLUSH (NSS) 2 FLUSH IV (13:56)
[2025-03-25 15:16] VITALS: BP 149/67
[2025-03-25 16:56] VITALS: BP 161/71; BP 168/75; PULSE 98; O2SAT 95
[2025-03-25] MEDS: TYLENOL 650 MG PO (21:54)
[2025-03-25 23:23] VITALS: BP 141/67
[2025-03-26] MEDS: DILAUDID 0.5 MG IV ×3 (01:13→10:40)
[2025-03-26] MEDS: ROXICODONE 5 MG PO (04:19)
[2025-03-26] MEDS: SYNTHROID 125 MCG PO (06:11)
[2025-03-26 07:12] VITALS: BP 118/67
--- NOTE | 2025-03-26 08:22 | W.PN.VS ---
Today's Communication / Plan
-
Plan reviewed with on-call attending.
Assessment/Plan
-
Postop day 5 right AKA
Plan:
Continue physical therapy and Occupational Therapy
Continue daily dressing change of ABD pad if required and gentle compression with Elier wrap
Stable for discharge to rehab, case management following for placement
Subjective Data
-
Date of Service: March 26, 2025
Patient seen and examined at bedside, offers no complaints. In good spirits, verbalizes working with physical therapy and is continuing to work on assigned physical therapy exercises. Denies nausea, vomiting, fever, and chills. Reports
well-managed postoperative pain with current as needed pain medication. Eager for next steps to discharge.
Objective Data
-
Vital Signs
Temp Pulse Resp BP Pulse Ox
99.4 F 86 18 118/67 94
03/26/25 07:12 03/26/25 07:12 03/26/25 07:12 03/26/25 07:12 03/26/25 07:12
Intake and Output
03/25/25 03/26/25 03/27/25
06:59 06:59 06:59
Intake Total 660 / 660 480 / 480
Balance 660 / 660 480 / 480
Intake:
Oral fluids 660 / 660 480 / 480
Other:
Number of approximated MODERATE 3 2
amounts of urine
Number of approximated LARGE 2 1
amounts of urine
Lab Results
03/23/25 06:00
Calcium 8.7 mg/dl (8.4-10.2) 03/23/25 06:00
Magnesium 1.9 mg/dl (1.6-2.3) 03/23/25 06:00
Physical Exam
-
AO x 3
No tachypnea on room air
No tachycardia
Abdomen soft
Stump staple sites clean, dry, and intact. Staple line well-approximated.
Stump soft, no edema or evidence of hematoma.
[2025-03-26] MEDS: TYLENOL 650 MG PO ×2 (08:55→15:08)
[2025-03-26] MEDS: NORVASC 5 MG PO (08:56)
[2025-03-26] MEDS: HEPARIN 5000 UNITS SC (08:56)
[2025-03-26] MEDS: VITAMIN B-12 1000 MCG PO (08:56)
[2025-03-26] MEDS: PLAVIX 75 MG PO (08:56)
[2025-03-26] MEDS: XARELTO 2.5 MG PO (08:56)
[2025-03-26] MEDS: NON-FORMULARY ITEM 1 UNIT TOPICAL (09:00)
[2025-03-26 11:39] LABS: Hematocrit 32.1 % (37.0-47.0); Hemoglobin 10.8 g/dL (12.0-16.0); Mean Corp Hgb Conc. 33.6 g/dL (33.0-37.0); Mean Corpuscular Volume 98.8 fL (81.0-99.0); Platelet Count 285 10^3/uL (130-400); Red Cell Dist. Width 15.5 % (11.5-14.5)
--- NOTE | 2025-03-26 12:07 | CM ---
Addendum entered by Brook Vasquez 03/26/25 14:38:
Bed now available today at [facility]
Pt in agreement
IMM completed
Call to dtr with udpate
VS aware
Discharge Disposition- [facility]
Phone- [phone] Fax- [phone]
Original Note:
CM reviewed pt with surgical team
Call with [facility]
Bed will eb available at [facility] tomorrow
Bedside update to pt who is in agreement with plan
Discharge Disposition- [facility] tomorrow
[2025-03-26 14:07] VITALS: BP 141/56; PULSE 87; O2SAT 95
[2025-03-26 14:50] VITALS: BP 120/63; PULSE 97; O2SAT 94
[2025-03-26] MEDS: DILAUDID 2 MG PO (15:08)
[2025-03-26 15:27] VITALS: BP 120/62
[2025-03-26] MEDS: ROXICODONE 10 MG PO (16:57)
--- NOTE | 2025-03-26 17:25 | PTCARENOTE ---
Patient discharged to [facility], report given to Christy by this RN. R midline removed by IV nurse, vitals taken by tech within 4 hours of DC. Belongings gathered at bedside, patient taken up to [facility] via staff escort on stretcher. Patient
medicated with PRN 10mg oxy prior to transport, this RN called [facility] and made nurse aware.
--- NOTE | 2025-04-06 10:40 | W.DCSUMMARY ---
Discharge Summary
Discharge Data
Date of Admission: 03/21/25
Date of Discharge: 03/26/25
-
Pending Results: No
Hospital Course
Attending: Casey Murcia M.D.
Consultants: Pulmonary medicine
Allergies: Baclofen, benzodiazepines, clindamycin, Valium, duloxetine, gabapentin, meloxicam, methotrexate, Lyrica, Bactrim
Procedure with date: 03/21/2025: Right [id number] amputation
History of present illness: The patient is an 85-year-old female with multiple medical conditions including: hypertension, PVD, chronic ulcer of the left foot, hypothyroidism, RA, chronic kidney disease. Patient presented on 03/21/2025 for scheduled
procedure with Dr. Murcia. Patient presented at baseline health with no reports of recent illness or trauma.
Hospital Course: Briefly, the patient underwent scheduled BKA without complications, and recovered in PACU. Following recovery phase one and two patient was transferred to the floor per protocol for continued monitoring. POD #1 (03/22/2025) Patient
doing well overall and tolerating PO diet. Surgical stump site dressing clean, dry, intact, and soft. No evidence of hematoma. POD #2 (03/23/2025) PT/OT consult. Stump site richa well-approximated with no drainage. POD #3 (03/24/2025)
hemoglobin remained stable overnight. Pain well-controlled. Discharge planning today. POD #4 (03/25/2025) continue same plan. POD #5 (03/26/2025) Patient stable for discharge to rehab.
Prescriptions and follow up appointment are included in the DC summary third helper note. All instructions were given to the patient in both written and verbal form and the patient expressed understanding.
Discharge Plan
-
Patient Disposition: Acute Rehab Facility
Discharge Diagnosis/Procedures: Right above the knee amputation
Condition: Good
Diet: As tolerated
Activity: No strenuous activity
Driving Restrictions: No driving
Bathing Restrictions: OK to Shower
Wound Care: You can cover right surgical site with ABD pad and secure with Elier wrap. If no drainage can just place Elier wrap on for gentle compression and support. Change daily or as needed if soiled. If you develop increase in drainage output,
purulent drainage, redness at staple sites, fever, or chills please call the vascular surgery office.
Stand Alone Forms: Vascular Surg Discharge Instr
Referrals:
UNKNOWN - PT DOES,NOT KNOW [Family Provider]
Lore Minaya CRNP [Specified Professional Personl, Vascular Surgery] - 04/13/25 1:30 pm
Referral Note: Vascular surgery office follow-up
Prescriptions:
New
hydromorphone 2 mg Tablet
2 mg PO Q4HPRN PRN (Reason: severe pain) Qty: 8 0RF
bisacodyl 10 mg Suppository
10 mg MS DAILYPRN PRN (Reason: constipation) Qty: 12 0RF
oxycodone 5 mg Tablet
5 mg PO Q4HPRN PRN (Reason: mild pain) Qty: 8 0RF
oxycodone 10 mg Tablet
10 mg PO Q4HPRN PRN (Reason: moderate pain) Qty: 8 0RF
docusate sodium 100 mg Capsule
100 mg PO BIDPRN PRN (Reason: No BM > 24 hours) Qty: 14 0RF
Continued
cyanocobalamin (vitamin B-12) [Vitamin B-12] 1,000 mcg Tablet
1,000 mcg PO DAILY
levothyroxine 125 mcg Tablet
125 mcg PO DAILY
lidocaine 1.8 % Adhesive Patch,Medicated
1 - 2 patch TOPICAL DAILY PRN (Reason: back pain )
acetaminophen 650 mg Tablet Extended Release
1,300 mg PO Q12H
clopidogrel 75 mg Tablet
75 mg PO DAILY Qty: 30 1RF
rivaroxaban [Xarelto] 2.5 mg Tablet
2.5 mg PO BID Qty: 60 1RF
Restless Legs
2 sublingual tab PO HS
melatonin 3 mg Tablet
12 mg PO HS PRN (Reason: sleep)
Prevagen Extra Strength
1 tab PO DAILY
Sachromyces Boulpedit Plus Mos
1 tab PO BID
Held
hydrocodone-acetaminophen 7.5-325 mg Tablet
1 tab PO Q6H PRN (Reason: pain)
Hold Instructions: hold while in rehab
Rx Instructions:
for severe pain
No Action
amlodipine 5 mg Tablet
5 mg PO DAILY 30 Days Qty: 30 0RF
Discharge Orders:
Discharge Patient (As Directed); Ordered 03/26/25
Ordered By: Chanda Medina
Discharge Date and Time
Discharge Date/Time: 03/26/25 16:39
Print Language: FINNISH
== END 2025-03-26 16:39 | DRG 240 ==
LOC: 2 NORTH 08:22
PROVIDERS: Nurse Practitioner; Nurse Practitioner Acute Care; Nurse Practitioner Gerontology; ADMITTING PHYSICIAN Surgery Vascular Surgery; REFERRING PHYSICIAN Family Medicine
PROC: 0Y6C0Z1 Detachment at Right Upper Leg, High, Open Approach (ICD-10-PCS; 2025-03-21)
PROC: 30233N1 Transfusion of Nonautologous Red Blood Cells into Peripheral Vein, Percutaneous Approach (ICD-10-PCS; 2025-03-23)
DX: I70.261 Atherosclerosis of native arteries of extremities with gangrene, right leg (principal); D62 Acute posthemorrhagic anemia; I12.9 Hypertensive chronic kidney disease with stage 1 through stage 4 chronic kidney disease, or unspecified chronic kidney disease; N18.32 Chronic kidney disease, stage 3b; M06.9 Rheumatoid arthritis, unspecified; E03.9 Hypothyroidism, unspecified; Z60.2 Problems related to living alone; Z79.890 Hormone replacement therapy; Z79.02 Long term (current) use of antithrombotics/antiplatelets; Z79.01 Long term (current) use of anticoagulants; Z88.8 Allergy status to other drugs, medicaments and biological substances; Z88.1 Allergy status to other antibiotic agents; Z88.2 Allergy status to sulfonamides; Z75.1 Person awaiting admission to adequate facility elsewhere
CPT/HCPCS: 27590; 80048; 83735; 85027; 85610; 85730; 86850; 86900; 86901; 86920; 88307; 88311; 93005; 97110; 97112; 97163; 97167; 97530; 97535; P9016